=== PATIENT | female | born 1960 | race Caucasian/White ===

== ENCOUNTER 2021-01-15 15:44 | Outpatient (REF) | payer OTHER, SELFPAY ==
[2021-01-15 16:53] LABS: Alanine Aminotransferase 75 U/L (0-31); Albumin Level 4.5 g/dL (3.5-5.0); Alkaline Phosphatase 70 U/L (39-117); Anion Gap 13 (12-20); Aspartate Amino Transferase 73 U/L (5-31); Bilirubin Direct 0.2 mg/dL (0.0-0.5); Bilirubin Total 0.5 mg/dL (0.0-1.0); Blood Urea Nitrogen 13 mg/dL (9-16); Calcium 9.5 mg/dL (8.4-10.2); Carbon Dioxide 27 mmol/L (22-29); Chloride 106 mmol/L (96-108); Estimated Glomerular Filt Rate > 60; Potassium 4.4 mmol/L (3.3-5.1); Sodium 142 mmol/L (135-145); Total Protein 7.2 g/dL (6.5-8.0)
== END 2021-01-15 15:45 | disposition home or self-care (01) ==
LOC: HO.LAB 15:44
PROVIDERS: PCP Family Medicine; Visit Provider Family Medicine
DX: I10 Essential (primary) hypertension (principal); K76.0 Fatty (change of) liver, not elsewhere classified; E21.3 Hyperparathyroidism, unspecified
CPT/HCPCS: 36415; 80051; 80076; 82310; 82565; 84520

== ENCOUNTER 2021-02-27 15:16 | Outpatient (REF) | payer OTHER, SELFPAY ==
--- NOTE | ~2021-02-27 | MM_ITS ---
EXAMINATION: MM SCREENING DIGITAL BREAST TOMOSYNTHESIS, BILATERAL CLINICAL INFORMATION: Screening. Asymptomatic. The lifetime risk of breast cancer based on the Tyrer-Cuzick Model is 14.6%. COMPARISON: Mammography: September 25, 2015 and August 01, 2012 TECHNIQUE: Digital breast tomosynthesis is performed in both the craniocaudal and mediolateral oblique views along with computer-aided detection (CAD). Synthesized 2D images are generated from the tomosynthesis. FINDINGS: The breasts are almost entirely fatty (ACR BI-RADS breast composition Category a). There are no significant masses, abnormal calcifications, or other abnormalities. MM/MM tomosynthesis screening BI IMPRESSION: There are no significant changes from prior study. ASSESSMENT: BI-RADS 1: Negative RECOMMENDATION: Routine annual mammography screening. This patient's information was entered into a reminder system with a target due date for their next mammogram.
== END 2021-02-27 15:17 | disposition home or self-care (01) ==
LOC: HO.MAMMO 15:16
PROVIDERS: Visit Provider Family Medicine
DX: Z12.31 Encounter for screening mammogram for malignant neoplasm of breast (principal)
CPT/HCPCS: 77063; 77067

== ENCOUNTER 2022-03-16 16:16 | Outpatient (REF) | payer OTHER, SELFPAY ==
[2022-03-16 17:40] LABS: Alanine Aminotransferase 50 U/L (0-31); Anion Gap 14 (12-20); Aspartate Amino Transferase 43 U/L (5-31); Blood Urea Nitrogen 14 mg/dL (9-16); Carbon Dioxide 26 mmol/L (22-29); Chloride 103 mmol/L (96-108); Estimated Glomerular Filt Rate > 60; Potassium 4.2 mmol/L (3.3-5.1); Sodium 139 mmol/L (135-145)
[2022-03-20 17:11] LABS: FIB-ALT 44 U/L (6-29); FIB-Alpha-2-Macroglobulin 175 mg/dL (106-279); FIB-Apolipoprotein A1 182 mg/dL (101-198); FIB-GGT 95 U/L (3-65); FIB-Haptoglobin 109 mg/dL (43-212); FIB-Total Bilirubin 0.7 mg/dL (0.2-1.2); Liver Fibrosis Score 0.27; Liver Fibrosis Stage F1; Nec Inflam Act Grade A0-A1; Nec Inflam Act Score 0.24
== END 2022-03-16 16:17 | disposition home or self-care (01) ==
LOC: HO.LAB 16:16
PROVIDERS: PCP Family Medicine; Visit Provider Family Medicine
DX: I10 Essential (primary) hypertension (principal); K75.81 Nonalcoholic steatohepatitis (NASH)
CPT/HCPCS: 36415; 80051; 81596; 82565; 84450; 84460; 84520; 86970

== ENCOUNTER 2022-03-31 14:18 | Outpatient (REF) | payer OTHER, SELFPAY | END 2022-03-31 14:19 | disposition home or self-care (01) | LOC: HO.US 14:18 | PROVIDERS: Visit Provider Family Medicine | DX: Z13.89 Encounter for screening for other disorder (principal) ==

== ENCOUNTER 2022-11-19 08:16 | Outpatient (REF) | payer OTHER, SELFPAY ==
--- NOTE | ~2022-11-19 | XR_ITS ---
EXAMINATION: XR SHOULDER, RIGHT CLINICAL INFORMATION: Right shoulder pain. COMPARISON: None available. TECHNIQUE: AP, scapular Y, and axillary views of the right shoulder. FINDINGS: Severe glenohumeral joint space narrowing with bony remodeling, subchondral cystic change, and marginal osteophytes. Mild superior subluxation of the humeral head, likely indicating underlying rotator cuff tendon tears. No acute fracture or dislocation. No abnormal soft tissue calcification. XR/XR shoulder RT min 2V IMPRESSION: Severe glenohumeral osteoarthritis with bony remodeling and mild superior subluxation of the humeral head, likely indicating underlying rotator cuff tendon tears.
== END 2022-11-19 08:17 | disposition home or self-care (01) ==
LOC: HO.HOSX 08:16
PROVIDERS: Visit Provider Physician Assistant
DX: M19.011 Primary osteoarthritis, right shoulder (principal)
CPT/HCPCS: 20610; 73030; J1040

== ENCOUNTER 2022-11-25 12:44 | Outpatient (REF) | payer OTHER, SELFPAY ==
--- NOTE | ~2022-11-25 | XR_ITS ---
EXAMINATION: XR HIP, LEFT CLINICAL INFORMATION: Left hip pain. COMPARISON: Selected images of the abdomen and pelvic CT scan of 03/16/2019. TECHNIQUE: Two views of the left hip. 1 view of the pelvis. FINDINGS: Postsurgical changes of ventral wall hernia repair are noted. Anastomotic steven are noted projecting over the midline in the lower pelvis. Femoral heads are well seated in the expected acetabula. Moderate to severe narrowing of the left hip joint space with subarticular sclerosis and subarticular cystic changes, greater in the acetabulum. Mild narrowing of the right hip joint space with mild subarticular sclerosis. Symphysis pubis is intact. Limited evaluation of the sacroiliac joints is unremarkable. Lower lumbar spondylosis. No evidence of acute fracture or dislocation. XR/XR hip LT w PEL1V IMPRESSION: No acute osseous abnormality in the pelvis and left hip. Moderate osteoarthritic changes in the left hip. Mild osteoarthritic changes in the right hip.
== END 2022-11-25 12:45 | disposition home or self-care (01) ==
LOC: HO.HOSX 12:44
PROVIDERS: Visit Provider Physician Assistant
DX: M16.12 Unilateral primary osteoarthritis, left hip (principal)
CPT/HCPCS: 73502

== ENCOUNTER 2023-02-08 15:36 | Outpatient (REF) | payer OTHER, SELFPAY ==
--- NOTE | ~2023-02-08 | MM_ITS ---
EXAMINATION: MM SCREENING DIGITAL BREAST TOMOSYNTHESIS, BILATERAL CLINICAL INFORMATION: Screening. Asymptomatic. Prior history reduction mammoplasty. The lifetime risk of breast cancer based on the Tyrer-Cuzick Model is 8%. COMPARISON: Mammography: 02/27/2021, 09/25/2015 TECHNIQUE: Digital breast tomosynthesis is performed in both the craniocaudal and mediolateral oblique views along with computer-aided detection (CAD). Synthesized 2D images are generated from the tomosynthesis. FINDINGS: The breasts are almost entirely fatty (ACR BI-RADS breast composition Category a). Background stromal markings are unremarkable. There are no significant masses, abnormal calcifications, or other abnormalities. There is minor scarring consistent with the reduction mammoplasty. There is fine punctate deodorant artifact overlying this high left axilla on MLO tomography. The axilla are otherwise unremarkable. Skin contours are smooth. No significant changes. MM/MM tomosynthesis screening BI IMPRESSION: No mammographic evidence of malignancy. ASSESSMENT: BI-RADS 2: Benign RECOMMENDATION: Routine annual mammography screening. This patient's information was entered into a reminder system with a target due date for their next mammogram.
== END 2023-02-08 15:37 | disposition home or self-care (01) ==
LOC: HO.MAMMO 15:36
PROVIDERS: Visit Provider Family Medicine
DX: Z12.31 Encounter for screening mammogram for malignant neoplasm of breast (principal)
CPT/HCPCS: 77063; 77067

== ENCOUNTER 2023-04-02 16:45 | Outpatient (REF) | payer OTHER, SELFPAY ==
[2023-04-02 18:18] LABS: Alanine Aminotransferase 60 U/L (0-31); Anion Gap 16 (12-20); Aspartate Amino Transferase 54 U/L (5-31); Blood Urea Nitrogen 17 mg/dL (9-16); Carbon Dioxide 22 mmol/L (22-29); Chloride 106 mmol/L (96-108); Estimated Glomerular Filt Rate > 60; Potassium 4.1 mmol/L (3.3-5.1); Sodium 140 mmol/L (135-145)
== END 2023-04-02 16:46 | disposition home or self-care (01) ==
LOC: HO.LAB 16:45
PROVIDERS: PCP Family Medicine; Visit Provider Family Medicine
DX: I10 Essential (primary) hypertension (principal); K75.81 Nonalcoholic steatohepatitis (NASH)
CPT/HCPCS: 36415; 80051; 82565; 84450; 84460; 84520

== ENCOUNTER 2023-12-12 19:48 | Inpatient (IN) | payer OTHER, SELFPAY ==
--- NOTE | ~2023-12-12 | XR_ITS ---
EXAMINATION: XR CHEST CLINICAL INFORMATION: Fever. COMPARISON: 11/02/2019. TECHNIQUE: 2 views of the chest were obtained. FINDINGS: The cardiomediastinal silhouette is stable. There is no focal lung consolidation or significant pleural effusion. The bony structures and soft tissues are unremarkable. XR/XR chest 2V IMPRESSION: No acute cardiopulmonary process.
--- NOTE | ~2023-12-12 | CT_ITS ---
EXAMINATION: CT ABDOMEN AND PELVIS WITH CONTRAST CLINICAL INFORMATION: Fever. Vomiting. Pain. COMPARISON: None available. TECHNIQUE: Multidetector volumetric images were obtained from the superior aspect of the liver through the pubic symphysis following administration 85 mL of Omnipaque 350 intravenous contrast. Sagittal and coronal reformatted images were obtained on the technologist's workstation. Oral contrast: No This CT examination was performed using dose optimization techniques as appropriate, variously including the following: *Automated exposure control *Adjustment of mA and/or kV according to patient size (this includes techniques or standardized protocols for targeted exams where dose is matched to indication/reason for exam; i.e. extremities or head) *Use of iterative reconstruction technique DLP: 608 mGy-cm FINDINGS: LUNG BASES: There is scarring at both lung bases. LIVER, GALLBLADDER, AND BILIARY TREE: The liver is normal in size, shape, and attenuation. No focal hepatic lesion or biliary ductal dilatation is present. There has been a prior cholecystectomy. PANCREAS: Unremarkable. SPLEEN: The spleen measures up to 16 cm. ADRENAL GLANDS: Unremarkable. KIDNEYS AND URETERS: The kidneys are normal in size and position. Both kidneys enhance heterogeneously particularly on the right. There are a few subcentimeter renal hypodensities too small to characterize but likely small cysts. There is no hydronephrosis. BLADDER: Mild urinary bladder wall thickening. GASTROINTESTINAL TRACT: There are diverticula of the transverse descending and sigmoid colon without diverticulitis. The appendix is visualized and is within normal limits. ABDOMINAL WALL: Hernia repair mesh is noted in place. LYMPH NODES: Normal. VASCULAR: Unremarkable. PELVIC VISCERA: Unremarkable. OSSEOUS STRUCTURES: There is diffuse thoracolumbar disc degenerative change. CT/CT abdomen pelvis w IV con IMPRESSION: 1. There is heterogeneous enhancement of the kidneys particularly on the right which could reflect pyelonephritis. 2. There is mild urinary bladder wall thickening which could reflect cystitis. 3. Diverticulosis without diverticulitis. 4. Splenomegaly. Fleischner guidelines were followed.
--- NOTE | 2023-12-12 19:51 | ECG_ITS ---
Test Reason : afibb Blood Pressure : / mmHG Vent. Rate : 126 BPM Atrial Rate : 000 BPM P-R Int : 000 ms QRS Dur : 090 ms QT Int : 302 ms P-R-T Axes : 000 011 028 degrees QTc Int : 437 ms Atrial fibrillation with rapid ventricular response Abnormal ECG When compared with ECG of 02-NOV-2019 21:22, Atrial fibrillation has replaced Sinus rhythm Referred By: Chen Gorman Electronically Signed By:ALICIA ARBOLEDA
[2023-12-12 20:00] VITALS: BP 129/84; PULSE 120; RESP 20; TEMP 37.2; O2SAT 98; BMI 32.9
[2023-12-12 20:16] LABS: MANUAL DIFF FLAG NO
[2023-12-12 20:18] VITALS: TEMP 38.1
[2023-12-12 20:18] LABS: Basophils Absolute Auto 0.1 X10*3/uL (0.0-0.2); Basophils Percent Auto 0.5 % (0-2); Eosinophils Absolute Auto 0.1 X10*3/uL (0.0-0.4); Hematocrit 39.1 % (37.0-47.0); Hemoglobin 13.7 g/dl (12.0-16.0); Imm Gran Abs Auto 0.09 X10*3/uL (0.00-0.03); Lymphocytes Absolute Auto 0.3 X10*3/uL (1.2-4.9); Lymphocytes Percent Auto 3.7 % (20-40); Mean Corpuscular Hemoglobin 33.9 pg (27.0-33.0); Mean Corpuscular Volume 96.8 fL (80.0-98.0); Mean Platelet Volume 10.9 fL (9.4-12.3); Monocytes Absolute Auto 0.7 X10*3/uL (0.1-1.2); Monocytes Percent Auto 7.3 % (2-11); Neutrophils Absolute Auto 8.1 x10*3/uL (2.0-8.3); Neutrophils Percent Auto 86.5 % (45-73); Platelet Count 118 X10*3/uL (160-400); Red Blood Count 4.04 X10*6/uL (4.20-5.50); Red Cell Distribution Width 12.9 % (11.0-16.0); White Blood Count 9.3 X10*3/uL (4.8-10.8)
[2023-12-12 20:34] LABS: INTERNATIONAL NORM RATIO 1.9 (0.9-1.1); Prothrombin Time 23.7 SEC (11.1-13.3)
[2023-12-12 20:50] LABS: Troponin-I High Sensitivity 6.9 ng/L (<3.5-17.0)
[2023-12-12 20:55] LABS: B Type Natriuretic Peptide 521 pg/mL (<100)
[2023-12-12 20:56] LABS: Influenza A PCR NEGATIVE (Negative); Influenza B PCR NEGATIVE (Negative); Resp Syncy Virus RNA Qual PCR NEGATIVE (Negative); SARS COV2 PCR INHOUSE NEGATIVE (Negative)
[2023-12-12 21:00] LABS: Alanine Aminotransferase 38 U/L (0-31); Albumin Level 3.8 g/dL (3.5-5.0); Alkaline Phosphatase 72 U/L (39-117); Anion Gap 19 (12-20); Aspartate Amino Transferase 37 U/L (5-31); Bilirubin Total 1.9 mg/dL (0.0-1.0); Blood Urea Nitrogen 18 mg/dL (9-16); Carbon Dioxide 13 mmol/L (22-29); Chloride 103 mmol/L (96-108); Creatinine Clr Calc Pharmacy 65.3; Estimated Glomerular Filt Rate > 60; Glucose Random 180 mg/dL (60-115); Lipase 19 U/L (8-78); Magnesium 1.8 mg/dL (1.6-2.6); Potassium 3.7 mmol/L (3.3-5.1); Sodium 131 mmol/L (135-145); Total Protein 7.6 g/dL (6.5-8.0)
[2023-12-12 22:35] VITALS: BP 109/66; PULSE 108; RESP 24; TEMP 37.8; O2SAT 95
[2023-12-13] VITALS (8 sets, daily range): BP systolic 96–125; BP diastolic 61–84; PULSE 93–124; RESP 14–28; TEMP 36.4–38.6; O2SAT 95–100
--- NOTE | 2023-12-13 00:03 | ED.GENADULT ---
HPI - General Adult General Chief complaint: General Medical Stated complaint: afib,dehydrated sweating Time Seen by Provider: 12/13/23 00:02 History of Present Illness HPI narrative: The patient is a 63-year-old woman who has a history of atrial fibrillation. In 2012 she had an ablation procedure that was successful and until the last day or 2 she has not had any recurrence of atrial fibrillation. She has stayed on anticoagulation with apixaban. The patient says that 3 days ago on she had some upper abdominal discomfort and nausea and vomiting. She had vomiting on Wednesday, Wednesday, and today on Wednesday. She also has had 2 episodes of diarrhea. She has been sleeping poorly. She felt feverish at home but did not measure a temperature. Today she felt profoundly weak and thought that her atrial fibrillation might have recurred although she did not feel the palpitations she remembers having with atrial fibrillation. At the time that I am seeing the patient she says she does not have any abdominal pain. No significant coughing. No urinary discomfort. She simply feels worn out.. Related Data Home Medications ?Medication ?Instructions ?Recorded ?Confirmed apixaban 5 mg tablet (Eliquis) 5 mg PO BID 11/19/22 11/25/22 diltiazem HCl 240 mg 240 mg PO BEDTIME 11/19/22 11/25/22 capsule,extended release 24 hr omeprazole 20 mg capsule,delayed 20 mg PO DAILY 11/19/22 11/25/22 release primidone 250 mg tablet 250 mg PO BEDTIME 11/19/22 11/25/22 propranolol 20 mg tablet mg PO 11/19/22 11/25/22 sertraline 100 mg tablet 100 mg PO DAILY 11/19/22 11/25/22 Previous Rx's ?Medication ?Instructions ?Recorded celecoxib 200 mg capsule 200 mg PO BID #60 caps 10/07/23 Allergies Allergy/AdvReac Type Severity Reaction Status Date / Time latex [LATEX] Allergy Intermediate RASH Verified 12/12/23 20:02 meperidine AdvReac Intermediate VOMITING Verified 12/12/23 20:02 STOMACH UPSET Review of Systems Review of Systems: Yes all other systems are reviewed and are negative PMFSH Past Medical History Medical History Afib Tremor Social History Social History (Reviewed 11/25/22 @ 13:45 by Analia Garcia Cuong Patient Tobacco Use Status: Never used Tobacco Use of substances other than those prescribed or required for medical reasons: No Advance Directives: No Advance Directives Information Provided: No Current occupational status: employed 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 She looks mildly worn out but not acutely toxic. She does not appear in pain or respiratory distress. She looks somewhat fatigued. HENMT Other: The face is symmetrical. Mucous membranes moist. Eyes Other: Pupils are round equal, conjunctivae are clear, extraocular movements intact Neck Other: No JVD Resp Effort & Inspection: normal respiratory effort Auscultation: clear to auscultation bilaterally Cardio Other: The patient has an irregular rate and rhythm. No murmur. She is mildly tachycardic. GI Other: The abdomen is soft. No real focal tenderness. Skin Other: Skin is pale and dry Neuro Other: The patient is awake, alert, and appropriate. Extrem Other: No peripheral edema Medications Administered Discontinued Medications Generic Name Dose Route Start Last Admin Trade Name Freq PRN Reason Stop Dose Admin Sodium Chloride 1,000 mls @ 999 mls/hr 12/13/23 00:30 12/13/23 01:45 Ns IV 12/13/23 01:30 Infused .Q1H1M JUAN CARLOS Infusion Sodium Chloride 1,000 mls @ 999 mls/hr 12/13/23 02:15 12/13/23 03:26 Ns IV 12/13/23 03:15 Infused .Q1H1M JUAN CARLOS Infusion Ceftriaxone Sodium 2 gm/ 50 mls @ 100 mls/hr 12/13/23 03:48 12/13/23 03:59 Sodium Chloride IV 12/13/23 04:17 100 mls/hr ONCE ONE Administration Iohexol 100 ml 12/13/23 02:17 12/13/23 02:17 Iohexol 350 Mg/Ml 100 Ml Infus..Btl IV 12/13/23 02:18 85 ml ONCE ONE Administration Medical Decision Making Medical Decision Making [facility] Narrative: The patient is a very pleasant 63-year-old female who presents to the emergency room after having not felt well for about 3 or 4 days. She describes primarily having had nausea and vomiting and a little bit of diarrhea and also some night sweats. She had felt feverish at home but did not check her temperature. She denies any urinary discomfort. She was worried that her atrial fibrillation might have returned after over 10 years of no atrial fibrillation following an ablation procedure in 2012. Clinically the patient did not look toxic and initially she was afebrile. She is in atrial fibrillation but her heart rate was not remarkably fast and the atrial fibrillation was not clearly the primary problem. Labs were done and she did not have an elevated white count but she did have a bicarb of 13 on her basic metabolic panel. A bicarb of 13 was surprising given how she looked clinically well in her vital signs were unremarkable. I added on additional inflammatory markers and she had remarkably high CRP and also quite elevated procalcitonin. She was given 2 L saline. Ultimately she was able to give us a urine sample that was highly suggestive of a UTI (on further questioning she admits to increased urinary frequency although she denies dysuria). I would also ordered a CT of the abdomen and pelvis. This shows findings consistent with cystitis and also some patchiness to the right kidney potentially indicative of right-sided pyelonephritis. The patient denies any right flank pain. The patient has been given IV ceftriaxone. She was offered hospitalization. She would really prefer not to be hospitalized. At 1st the patient was quite insistent that she be discharged after starting antibiotics but ultimately she became quite chilled and agreed that hospitalization might be reasonable. I strongly encouraged her to be hospitalized. Lab Data 12/12/23 20:10 12/13/23 02:45 Labs: Lab Results 12/12/23 12/12/23 12/13/23 Range/Units 20:10 20:25 02:45 WBC 9.3 (4.8-10.8) X10*3/uL RBC 4.04 L (4.20-5.50) X10*6/uL Hgb 13.7 (12.0-16.0) g/dl Hct 39.1 (37.0-47.0) % MCV 96.8 (80.0-98.0) fL MCH 33.9 H (27.0-33.0) pg MCHC 35.0 (31.0-35.0) g/dl RDW 12.9 (11.0-16.0) % Plt Count 118 L (160-400) X10*3/uL MPV 10.9 (9.4-12.3) fL Immature Gran % (Auto) 1.0 H (0.0-0.4) % Neut % (Auto) 86.5 H (45-73) % Lymph % (Auto) 3.7 L (20-40) % [place] % (Auto) 7.3 (2-11) % Eos % (Auto) 1.0 (0-4) % Baso % (Auto) 0.5 (0-2) % Lymph # (Auto) 0.3 L (1.2-4.9) X10*3/uL [place] # (Auto) 0.7 (0.1-1.2) X10*3/uL Eos # (Auto) 0.1 (0.0-0.4) X10*3/uL Baso # (Auto) 0.1 (0.0-0.2) X10*3/uL Abs Immat Gran (auto) 0.09 H (0.00-0.03) X10*3/uL Absolute Neuts (auto) 8.1 (2.0-8.3) x10*3/uL Absolute Nucleated RBC 0.000 (0.0-0.012) X10*3/uL Nucleated RBC % (auto) 0.0 (0.0-0.2) /100WBC PT 23.7 H (11.1-13.3) SEC INR 1.9 H (0.9-1.1) VBG pH (7.32-7.43) VBG pCO2 mmHg VBG pO2 mmHg VBG HCO3 (22-26) mmol/L VBG O2 Saturation % VBG Base Excess mmol/L Sodium 131 L 134 L (135-145) mmol/L Potassium 3.7 3.1 L (3.3-5.1) mmol/L Chloride 103 103 (96-108) mmol/L Carbon Dioxide 13 L 20 L (22-29) mmol/L Anion Gap 19 14 (12-20) BUN 18 H 21 H (9-16) mg/dL Creatinine 0.85 0.88 (0.5-1.4) mg/dL Estim Creat Clear Calc 65.3 63.1 Estimated GFR > 60 > 60 Random Glucose 180 H 118 H (60-115) mg/dL Lactic Acid 1.6 (0.5-2.0) mmol/L Calcium 9.0 8.1 L D (8.4-10.2) mg/dL Magnesium 1.8 (1.6-2.6) mg/dL Total Bilirubin 1.9 H (0.0-1.0) mg/dL Direct Bilirubin 0.6 H (0.0-0.5) mg/dL AST 37 H (5-31) U/L ALT 38 H (0-31) U/L Alkaline Phosphatase 72 (39-117) U/L Troponin I High Sens 6.9 (<3.5-17.0) ng/L C-Reactive Protein 28.71 H (< or = 0.50) mg/dL B-Natriuretic Peptide 521 H (<100) pg/mL Total Protein 7.6 (6.5-8.0) g/dL Albumin 3.8 (3.5-5.0) g/dL Lipase 19 (8-78) U/L Procalcitonin 7.08 ng/mL Urine Color Urine Appearance Urine pH (5.0-9.0) Ur Specific [place] (1.005-1.025) Urine Protein (Neg-Trace) mg/dL Urine Glucose (UA) (Negative) mg/dL Urine Ketones (Negative) mg/dL Urine Blood (Negative) Urine Nitrite (Negative) Ur Leukocyte Esterase (Negative) Urine RBC (0-2) /HPF Urine WBC (0-5) /HPF Ur Squamous Epith Cells (0-2) /HPF Urine Bacteria (None Seen) Hyaline Casts (0-2) /LPF Influenza Type A (PCR) NEGATIVE (Negative) Influenza Type B (PCR) NEGATIVE (Negative) RSV RNA Qual (PCR) NEGATIVE (Negative) SARS-CoV-2 RNA (RT-PCR) NEGATIVE (Negative) 12/13/23 12/13/23 Range/Units 02:46 03:31 WBC (4.8-10.8) X10*3/uL RBC (4.20-5.50) X10*6/uL Hgb (12.0-16.0) g/dl Hct (37.0-47.0) % MCV (80.0-98.0) fL MCH (27.0-33.0) pg MCHC (31.0-35.0) g/dl RDW (11.0-16.0) % Plt Count (160-400) X10*3/uL MPV (9.4-12.3) fL Immature Gran % (Auto) (0.0-0.4) % Neut % (Auto) (45-73) % Lymph % (Auto) (20-40) % [place] % (Auto) (2-11) % Eos % (Auto) (0-4) % Baso % (Auto) (0-2) % Lymph # (Auto) (1.2-4.9) X10*3/uL [place] # (Auto) (0.1-1.2) X10*3/uL Eos # (Auto) (0.0-0.4) X10*3/uL Baso # (Auto) (0.0-0.2) X10*3/uL Abs Immat Gran (auto) (0.00-0.03) X10*3/uL Absolute Neuts (auto) (2.0-8.3) x10*3/uL Absolute Nucleated RBC (0.0-0.012) X10*3/uL Nucleated RBC % (auto) (0.0-0.2) /100WBC PT (11.1-13.3) SEC INR (0.9-1.1) VBG pH 7.32 (7.32-7.43) VBG pCO2 41 mmHg VBG pO2 31 mmHg VBG HCO3 21 L (22-26) mmol/L VBG O2 Saturation 40.0 % VBG Base Excess -4.1 mmol/L Sodium (135-145) mmol/L Potassium (3.3-5.1) mmol/L Chloride (96-108) mmol/L Carbon Dioxide (22-29) mmol/L Anion Gap (12-20) BUN (9-16) mg/dL Creatinine (0.5-1.4) mg/dL Estim Creat Clear Calc Estimated GFR Random Glucose (60-115) mg/dL Lactic Acid (0.5-2.0) mmol/L Calcium (8.4-10.2) mg/dL Magnesium (1.6-2.6) mg/dL Total Bilirubin (0.0-1.0) mg/dL Direct Bilirubin (0.0-0.5) mg/dL AST (5-31) U/L ALT (0-31) U/L Alkaline Phosphatase (39-117) U/L Troponin I High Sens (<3.5-17.0) ng/L C-Reactive Protein (< or = 0.50) mg/dL B-Natriuretic Peptide (<100) pg/mL Total Protein (6.5-8.0) g/dL Albumin (3.5-5.0) g/dL Lipase (8-78) U/L Procalcitonin ng/mL Urine Color Yellow Urine Appearance Turbid Urine pH 5.5 (5.0-9.0) Ur Specific [place] >= 1.030 H (1.005-1.025) Urine Protein 100 (2+) H (Neg-Trace) mg/dL Urine Glucose (UA) Negative (Negative) mg/dL Urine Ketones Negative (Negative) mg/dL Urine Blood Large (3+) H (Negative) Urine Nitrite Positive H (Negative) Ur Leukocyte Esterase Moderate (2+) H (Negative) Urine RBC >20 H (0-2) /HPF Urine WBC >50 H (0-5) /HPF Ur Squamous Epith Cells 0-2 (0-2) /HPF Urine Bacteria 4+ (None Seen) Hyaline Casts 0-2 (0-2) /LPF Influenza Type A (PCR) (Negative) Influenza Type B (PCR) (Negative) RSV RNA Qual (PCR) (Negative) SARS-CoV-2 RNA (RT-PCR) (Negative) Independent Interpretation I performed an independent interpretation of an: EKG Interpretation: EKG at 19:53 shows atrial fibrillation with rapid ventricular response at 126 beats per minute Critical Care Time Critical Care Time Critical Care Time: Yes Total Critical Care Time: 45 Attestation: The patient was critically ill with a high probability of imminent or life-threatening deterioration. ?I spent greater than 30 minutes of discontinuous time evaluating the patient, delivering critical care at the bedside, discussing evaluating data with consultants. ?Critical care time does not include time spent performing separately billable procedures or teaching. ?Time spent performing critical care with 45 minutes. Discharge Plan Discharge Patient Disposition: Admitted As Inpatient Prescriptions: No Action celecoxib 200 mg capsule 200 mg PO BID Qty: 60 3RF sertraline 100 mg tablet 100 mg PO DAILY propranolol 20 mg tablet PO omeprazole 20 mg capsule,delayed release(DR/EC) 20 mg PO DAILY diltiazem HCl 240 mg capsule,extended release 24hr 240 mg PO BEDTIME primidone 250 mg tablet 250 mg PO BEDTIME Eliquis 5 mg tablet 5 mg PO BID Print Language: Kinyarwanda
[2023-12-13 00:44] LABS: Bilirubin Direct 0.6 mg/dL (0.0-0.5); C Reactive Protein 28.71 mg/dL (< or = 0.50)
[2023-12-13] MEDS: 0.9 % Sodium Chloride 1,000 ML 999 ML IV ×2 (00:44→02:25)
[2023-12-13] MEDS: iohexoL 350 MG/ML 100 ML INFUS..BTL IV (02:17)
[2023-12-13 02:52] LABS: Procalcitonin 7.08 ng/mL
[2023-12-13 02:54] LABS: VBG Base Excess -4.1 mmol/L; VBG HCO3 21 mmol/L (22-26); VBG pCO2 41 mmHg; VBG pH 7.32 (7.32-7.43); VBG pO2 31 mmHg
[2023-12-13 02:57] LABS: Venous Blood Gas Refer to POC result
[2023-12-13 03:00] LABS: Lactic Acid 1.6 mmol/L (0.5-2.0)
[2023-12-13 03:05] LABS: Anion Gap 14 (12-20); Blood Urea Nitrogen 21 mg/dL (9-16); Calcium 8.1 mg/dL (8.4-10.2); Carbon Dioxide 20 mmol/L (22-29); Chloride 103 mmol/L (96-108); Creatinine Clr Calc Pharmacy 63.1; Estimated Glomerular Filt Rate > 60; Glucose Random 118 mg/dL (60-115); Potassium 3.1 mmol/L (3.3-5.1); Sodium 134 mmol/L (135-145)
[2023-12-13 03:38] LABS: Appearance Urine Turbid; Color Urine Yellow; Glucose Urine UA Negative (Negative); Leukocyte Esterase Urine Moderate (2+) (Negative); Nitrite Urine Positive (Negative); PH 5.5 (5.0-9.0); Specific Gravity - Urine >= 1.030 (1.005-1.025); UMIC TRIGGER UACC YES; Urine Blood Large (3+) (Negative); Urine Ketones Negative (Negative); Urine Protein 100 (2+) mg/dL (Neg-Trace)
[2023-12-13 03:41] LABS: Bacteria Urine 4+ (None Seen); Hyaline Casts Urine 0-2 /LPF (0-2); RBC Urine >20 /HPF (0-2); Squamous Epithelial Cell Urine 0-2 /HPF (0-2); UACC Culture Trigger YES; WBC Urine >50 /HPF (0-5)
[2023-12-13] MEDS: cefTRIAXone sodium 2 GM in 0.9 % Sodium Chloride 50 ML IV (03:59)
--- NOTE | 2023-12-13 04:40 | P.HPHOSP_ITS ---
History of Present Illness Date of Service: 12/13/23 Chief Complaint: Abdominal Pain This is a 63-year-old female with pertinent history of atrial fibrillation on Eliquis, gastroesophageal reflux disease, essential tremor, mood disorder who presents to the emergency department for evaluation of abdominal discomfort, nausea and vomiting. Patient states her symptoms started 2 days prior to presentation. She has been having nausea and multiple episodes of nonbloody emesis. She also felt her heart race and states that she has not been in RVR since her ablation which was 11 years ago. Admits fevers and chills. Also endorses increased urinary frequency. Has never had a UTI before. No chest discomfort, palpitations, shortness of breath, changes in bowel habits In the emergency department, urine was concerning for UTI and imaging with pyelonephritis and cystitis. Review of Systems 2 Constitutional: Constitutional: Reports chills and Reports fever(s) Cardiovascular: Cardiovascular: Reports no additional cardiovascular complaints Respiratory: Respiratory: Reports no additional respiratory complaints Gastrointestinal: Gastrointestinal: Reports no additional gastrointestinal complaints Genitourinary: Genitourinary: Reports urinary urgency [facility] Medical History GERD (gastroesophageal reflux disease) Mood disorder Tremor Afib Pertinent family history: No family history of early CAD Social History Patient Tobacco Use Status: Never used Tobacco Use of substances other than those prescribed or required for medical reasons: No Advance Directives: No Advance Directives Information Provided: No Current occupational status: employed 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 Meds Allergies Allergy/AdvReac Type Severity Reaction Status Date / Time latex [LATEX] Allergy Intermediate RASH Verified 12/12/23 20:02 meperidine AdvReac Intermediate VOMITING Verified 12/12/23 20:02 STOMACH UPSET Home Medications ?Medication ?Instructions ?Recorded ?Confirmed ?Last Taken ?Type apixaban 5 mg tablet (Eliquis) 5 mg PO BID 11/19/22 11/25/22 Unknown History diltiazem HCl 240 mg 240 mg PO BEDTIME 11/19/22 11/25/22 Unknown History capsule,extended release 24 hr omeprazole 20 mg capsule,delayed 20 mg PO DAILY 11/19/22 11/25/22 Unknown History release primidone 250 mg tablet 250 mg PO BEDTIME 11/19/22 11/25/22 Unknown History propranolol 20 mg tablet mg PO 11/19/22 11/25/22 Unknown History sertraline 100 mg tablet 100 mg PO DAILY 11/19/22 11/25/22 Unknown History Physical Exam 2 Vital Signs and Narrative: Vital Signs: Last Vital Signs Temp 97.5 F 12/13/23 02:53 Pulse 99 12/13/23 02:53 Resp 18 12/13/23 02:53 BP 122/84 12/13/23 02:53 Pulse Ox 95 12/13/23 02:53 O2 Del Method Room Air 12/13/23 02:53 BMI result Body Mass Index 32.9 Middle-aged female lying in bed in no distress Neck supple, no JVD Regular rate and rhythm, S1-S2 heard Regular breath sounds bilaterally, no wheezing or crackles appreciated Abdomen soft nontender, no guarding, no rigidity Patient is awake, alert and oriented to self, place, time and person ; no focal motor deficit Psych: Normal mood No pedal edema Results Labs 12/12/23 20:10 12/13/23 02:45 Labs: Laboratory Results - last 24 hr 12/12/23 12/12/23 12/13/23 20:10 20:25 02:45 MCV 96.8 MCH 33.9 H MCHC 35.0 RDW 12.9 Plt Count 118 L MPV 10.9 Immature Gran % (Auto) 1.0 H Neut % (Auto) 86.5 H Lymph % (Auto) 3.7 L [place] % (Auto) 7.3 Eos % (Auto) 1.0 Baso % (Auto) 0.5 Lymph # (Auto) 0.3 L [place] # (Auto) 0.7 Eos # (Auto) 0.1 Baso # (Auto) 0.1 Abs Immat Gran (auto) 0.09 H Absolute Neuts (auto) 8.1 Absolute Nucleated RBC 0.000 Nucleated RBC % (auto) 0.0 PT 23.7 H INR 1.9 H VBG pH VBG pCO2 VBG pO2 VBG HCO3 VBG O2 Saturation VBG Base Excess Anion Gap 19 14 Estim Creat Clear Calc 65.3 63.1 Estimated GFR > 60 > 60 Random Glucose 180 H 118 H Lactic Acid 1.6 Calcium 9.0 8.1 L D Magnesium 1.8 Total Bilirubin 1.9 H Direct Bilirubin 0.6 H AST 37 H ALT 38 H Alkaline Phosphatase 72 Troponin I High Sens 6.9 C-Reactive Protein 28.71 H B-Natriuretic Peptide 521 H Total Protein 7.6 Albumin 3.8 Lipase 19 Procalcitonin 7.08 Urine Color Urine Appearance Urine pH Ur Specific [place] Urine Protein Urine Glucose (UA) Urine Ketones Urine Blood Urine Nitrite Ur Leukocyte Esterase Urine RBC Urine WBC Ur Squamous Epith Cells Urine Bacteria Hyaline Casts Influenza Type A (PCR) NEGATIVE Influenza Type B (PCR) NEGATIVE RSV RNA Qual (PCR) NEGATIVE SARS-CoV-2 RNA (RT-PCR) NEGATIVE 12/13/23 12/13/23 02:46 03:31 MCV MCH MCHC RDW Plt Count MPV Immature Gran % (Auto) Neut % (Auto) Lymph % (Auto) [place] % (Auto) Eos % (Auto) Baso % (Auto) Lymph # (Auto) [place] # (Auto) Eos # (Auto) Baso # (Auto) Abs Immat Gran (auto) Absolute Neuts (auto) Absolute Nucleated RBC Nucleated RBC % (auto) PT INR VBG pH 7.32 VBG pCO2 41 VBG pO2 31 VBG HCO3 21 L VBG O2 Saturation 40.0 VBG Base Excess -4.1 Anion Gap Estim Creat Clear Calc Estimated GFR Random Glucose Lactic Acid Calcium Magnesium Total Bilirubin Direct Bilirubin AST ALT Alkaline Phosphatase Troponin I High Sens C-Reactive Protein B-Natriuretic Peptide Total Protein Albumin Lipase Procalcitonin Urine Color Yellow Urine Appearance Turbid Urine pH 5.5 Ur Specific [place] >= 1.030 H Urine Protein 100 (2+) H Urine Glucose (UA) Negative Urine Ketones Negative Urine Blood Large (3+) H Urine Nitrite Positive H Ur Leukocyte Esterase Moderate (2+) H Urine RBC >20 H Urine WBC >50 H Ur Squamous Epith Cells 0-2 Urine Bacteria 4+ Hyaline Casts 0-2 Influenza Type A (PCR) Influenza Type B (PCR) RSV RNA Qual (PCR) SARS-CoV-2 RNA (RT-PCR) Imaging Radiologist's Impressions: Impressions Chest X-Ray 12/13/23 02:15 IMPRESSION: No acute cardiopulmonary process. Abdomen/Pelvis CT 12/13/23 02:33 IMPRESSION: 1. There is heterogeneous enhancement of the kidneys particularly on the right which could reflect pyelonephritis. 2. There is mild urinary bladder wall thickening which could reflect cystitis. 3. Diverticulosis without diverticulitis. 4. Splenomegaly. Fleischner guidelines were followed. Assessment and Plan (1) UTI (urinary tract infection): Status: Acute (2) Pyelonephritis: Status: Acute (3) Atrial fibrillation: Status: Acute Plan This is a 63-year-old female with pertinent history of atrial fibrillation on Eliquis, gastroesophageal reflux disease, essential tremor, mood disorder who presents to the emergency department for evaluation of abdominal discomfort, nausea and vomiting. #. Sepsis due to acute UTI with pyelonephritis: Resuscitated with IV crystalloids. Lactic acid and blood culture obtained. Initiating empiric IV antibiotics. Follow urine culture #. AFib with RVR in the setting of above: Administering IV diltiazem. Continue p.o. diltiazem. On Eliquis. Obtain TSH #. Thrombocytopenia: Seems chronic, a little worse due to infection. Will monitor #. Hypokalemia due to GI losses. Repleted #. Elevated BNP: No signs or symptoms of CHF. #. Essential tremor: On primidone and propranolol #. Mood disorder: On sertraline #. Gastroesophageal reflux disease: On PPI Med rec pending DVT prophylaxis: Eliquis Full code Admit as inpatient and will require two night minimum hospital stay for IV antibiotics (as above), which is not possible in a lesser acute setting. Quality Stroke Does the patient have a stroke diagnosis?: No VTE Prior VTE?: No VTE Risk Level:: Medical - moderate - high VTE Device Contraindication: Treatment Not Indicated VTE Drug Contraindication: N/A - Med Ordered
[2023-12-13 06:01] LABS: PLT CLUMP 1
[2023-12-13 06:03] LABS: Hematocrit 37.5 % (37.0-47.0); Hemoglobin 12.6 g/dl (12.0-16.0); Mean Corpuscular HGB Conc 33.6 g/dl (31.0-35.0); Mean Corpuscular Hemoglobin 33.2 pg (27.0-33.0); Mean Corpuscular Volume 98.7 fL (80.0-98.0); Red Cell Distribution Width 12.9 % (11.0-16.0)
[2023-12-13 06:04] LABS: Platelet Count 87 X10*3/uL (160-400); White Blood Count 5.1 X10*3/uL (4.8-10.8)
[2023-12-13 06:21] LABS: Band Neutrophils Percent 12 % (3-5); Lymphocytes Absolute Manual 0.2 X10*3/uL (1.2-4.9); Lymphocytes Percent Manual 3 % (20-40); Monocytes Absolute Manual 0.2 X10*3/uL (0.1-1.2); Monocytes Percent Manual 3 % (2-11); Neutrophils Absolute Manual 4.8 X10*3/uL (2.0-8.3); Neutrophils Percent Manual 82 % (45-73)
[2023-12-13 06:22] LABS: Platelet Estimate DECREASED (NORMAL); Platelet Morphology Comment NORMAL; RBC Morphology NORMAL; Toxic Granulation PRESENT; Toxic Vacuolation PRESENT
[2023-12-13 06:26] LABS: Anion Gap 16 (12-20); Blood Urea Nitrogen 19 mg/dL (9-16); Carbon Dioxide 17 mmol/L (22-29); Chloride 105 mmol/L (96-108); Creatinine Clr Calc Pharmacy 63.1; Estimated Glomerular Filt Rate > 60; Glucose Random 195 mg/dL (60-115); Potassium 3.9 mmol/L (3.3-5.1); Sodium 134 mmol/L (135-145)
[2023-12-13] MEDS: Potassium Chloride Packet 20 MEQ PACKET 40 MEQ PO (06:44)
[2023-12-13] MEDS: dilTIAZem HCL 50 MG/10 ML VIAL 15 MG IVPUSH (06:45)
[2023-12-13 07:07] LABS: Thyroid Stimulating Hormone 1.75 uIU/mL (0.32-4.0)
[2023-12-13 07:35] LABS: Estimated Average Glucose 108 mg/dL; Hemoglobin A1c % 5.4 % (<6.0)
[2023-12-13] MEDS: 0.9 % Sodium Chloride Flush 3 ML SYRINGE IVFLUSH ×2 (09:50→15:41)
--- NOTE | 2023-12-13 10:16 | MHC.CM.PN ---
CM MET WITH PT/SPOUSE AT BEDSIDE IN ED. PT LIVES WITH SPOUSE AND IS INDEPENDENT AT BASELINE. ONLY USES A CANE WHEN AMBULATING ON UNEVEN SURFACES. PT DECLINES TO DO A HCP, EDUCATION PROVIDED AND ENCOURAGED TO LET CM KNOW IF DECIDES TO COMPLETE ONE. PCP DR. CHANEL DP: HOME, NO SERVICES ANTICIPATED. SPOUSE WILL TRANSPORT. CM WILL CONTINUE TO FOLLOW FOR ANY CHANGE TO DC PLAN/NEEDS
[2023-12-13] MEDS: Apixaban 5 MG TABLET PO ×2 (13:34→20:54)
--- NOTE | 2023-12-13 14:36 | PHA.MEDREC ---
Pharmacy Consult ? Medication Reconciliation Pharmacy has completed the medication reconciliation. PT WAS ABLE TO CONFIRM MEDICATIONS WHEN I REVIEWED CLAIM HISTORY WITH HER.
--- NOTE | 2023-12-13 14:39 | PC.NURSE ---
Assumed care of this patient at 1100, patient resting quietly on stretcher, no issues noted, ind st/pivot to bedside commode, eating lunch at this time.
[2023-12-13] MEDS: dilTIAZem HCL 60 MG TABLET PO (15:42)
[2023-12-13] MEDS: Sertraline HCL 100 MG TABLET PO (15:43)
[2023-12-13] MEDS: Propranolol HCL 20 MG TABLET 60 MG PO ×2 (15:43→20:54)
--- NOTE | 2023-12-13 15:45 | PC.NURSE ---
Spoke to patient about having family bring in non-formulary primidone Rx from home, patient states she will have her bring it in when he visits her this pm.
[2023-12-13] MEDS: oxyBUTYnin chloride ER 5 MG TAB.ER.24 PO (20:54)
[2023-12-13] MEDS: dilTIAZem HCL CD 240 MG CAP.ER.DEG PO (20:55)
[2023-12-13] MEDS: Celecoxib 200 MG CAPSULE PO (20:55)
--- NOTE | 2023-12-13 21:02 | PC.NURSE ---
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
[2023-12-14] VITALS (8 sets, daily range): BP systolic 111–128; BP diastolic 71–86; PULSE 91–113; RESP 17–22; TEMP 36.3–37.3; O2SAT 95–98
[2023-12-14 06:27] LABS: MANUAL DIFF FLAG NO
[2023-12-14] MEDS: cefTRIAXone sodium 2 GM in 0.9 % Sodium Chloride 50 ML IV (06:28)
[2023-12-14 06:33] LABS: Basophils Percent Auto 0.4 % (0-2); Eosinophils Percent Auto 0.2 % (0-4); Hemoglobin 11.4 g/dl (12.0-16.0); Imm Gran Abs Auto 0.03 X10*3/uL (0.00-0.03); Imm Gran Pct Auto 0.5 % (0.0-0.4); Lymphocytes Absolute Auto 0.6 X10*3/uL (1.2-4.9); Lymphocytes Percent Auto 9.8 % (20-40); Mean Corpuscular HGB Conc 33.5 g/dl (31.0-35.0); Mean Corpuscular Hemoglobin 33.4 pg (27.0-33.0); Mean Corpuscular Volume 99.7 fL (80.0-98.0); Mean Platelet Volume 12.1 fL (9.4-12.3); Monocytes Absolute Auto 0.6 X10*3/uL (0.1-1.2); Monocytes Percent Auto 10.9 % (2-11); Neutrophils Absolute Auto 4.5 x10*3/uL (2.0-8.3); Neutrophils Percent Auto 78.2 % (45-73); Red Blood Count 3.41 X10*6/uL (4.20-5.50); Red Cell Distribution Width 12.8 % (11.0-16.0); White Blood Count 5.7 X10*3/uL (4.8-10.8)
[2023-12-14 06:50] LABS: Anion Gap 12 (12-20); Blood Urea Nitrogen 12 mg/dL (9-16); Calcium 8.7 mg/dL (8.4-10.2); Carbon Dioxide 21 mmol/L (22-29); Chloride 106 mmol/L (96-108); Estimated Glomerular Filt Rate > 60; Glucose Random 98 mg/dL (60-115); Potassium 3.3 mmol/L (3.3-5.1); Sodium 136 mmol/L (135-145)
[2023-12-14 07:34] LABS: Platelet Count 96 X10*3/uL (160-400)
[2023-12-14] MEDS: 0.9 % Sodium Chloride Flush 3 ML SYRINGE IVFLUSH ×3 (08:14→21:32)
[2023-12-14] MEDS: Ascorbic Acid 500 MG TABLET PO (09:48)
[2023-12-14] MEDS: Celecoxib 200 MG CAPSULE PO ×2 (09:48→21:29)
[2023-12-14] MEDS: Apixaban 5 MG TABLET PO ×2 (09:48→21:30)
[2023-12-14] MEDS: Sertraline HCL 100 MG TABLET PO (09:48)
[2023-12-14] MEDS: Propranolol HCL 20 MG TABLET 60 MG PO ×2 (09:49→21:31)
--- NOTE | 2023-12-14 11:20 | HO.PM.IMPN ---
Subjective Subjective Date of Service: 12/14/23 Interval History: No significant nursing events overnight. No further episodes of nausea/vomiting. Improvement in abdominal discomfort Gastrointestinal Gastrointestinal: Reports abdominal pain Physical Exam Vital Signs: Vital Signs: Last Vital Signs Temp 98.2 F 12/14/23 08:00 Pulse 99 12/14/23 08:00 Resp 22 H 12/14/23 08:00 BP 124/85 12/14/23 08:00 Pulse Ox 97 12/14/23 08:00 O2 Del Method Room Air 12/14/23 08:00 BMI result Body Mass Index 32.9 Middle-aged female lying in bed in no distress Neck supple, no JVD Regular rate and rhythm, S1-S2 heard Regular breath sounds bilaterally, no wheezing or crackles appreciated Abdomen soft nontender, no guarding, no rigidity Patient is awake, alert and oriented to self, place, time and person ; no focal motor deficit Psych: Normal mood No pedal edema Objective Data Active Medications Acetaminophen (Acetaminophen 325 Mg Tablet) 650 mg PO Q6H PRN PRN Reason: Pain, Mild (Pain Scale 1-3) Apixaban (Apixaban 5 Mg Tablet) 5 mg PO BID [facility] Last Admin: 12/14/23 09:48 Dose: 5 mg Documented By: DENNIS Ascorbic Acid (Ascorbic Acid 500 Mg Tablet) 500 mg PO DAILY [facility] Last Admin: 12/14/23 09:48 Dose: 500 mg Documented By: DENNIS Celecoxib (Celecoxib 200 Mg Capsule) 200 mg PO BID [facility] Last Admin: 12/14/23 09:48 Dose: 200 mg Documented By: DENNIS Diltiazem HCl (Diltiazem Hcl Cd 240 Mg Cap.Er.Deg) 240 mg PO BEDTIME [facility]; Protocol Last Admin: 12/13/23 20:55 Dose: 240 mg Documented By: GARRY Ceftriaxone Sodium 2 gm/ (Sodium Chloride) 50 mls @ 100 mls/hr IV Q24H [facility] Last Infusion: 12/14/23 07:33 Dose: Infused Documented By: MORTEZA Melatonin (Melatonin 3 Mg Tablet) 6 mg PO BEDTIME PRN PRN Reason: Insomnia Pt Own (Primidone (250 Mg Tablet)) 250 mg PO BEDTIME [facility] Last Admin: 12/13/23 21:32 Dose: 250 mg Documented By: HO.DITOLC Ondansetron HCl (Ondansetron Hcl 4 Mg/2 Ml Vial) 4 mg IVPUSH Q8H PRN PRN Reason: Nausea and Vomiting Oxybutynin Chloride (Oxybutynin Chloride Er 5 Mg Tab.Er.24) 5 mg PO BEDTIME [facility] Last Admin: 12/13/23 20:54 Dose: 5 mg Documented By: GARRY Propranolol HCl (Propranolol Hcl 20 Mg Tablet) 60 mg PO BID [facility]; Protocol Last Admin: 12/14/23 09:49 Dose: 60 mg Documented By: DENNIS Sertraline HCl (Sertraline Hcl 100 Mg Tablet) 100 mg PO DAILY [facility] Last Admin: 12/14/23 09:48 Dose: 100 mg Documented By: DENNIS Sodium Chloride (0.9 % Sodium Chloride Flush 3 Ml Syringe) 3 ml IVFLUSH QSHIFT [facility] Last Admin: 12/14/23 09:49 Dose: 3 ml Documented By: DENNIS Labs 12/14/23 05:42 12/14/23 05:42 Labs: Laboratory Results - last 24 hr 12/14/23 05:42 MCV 99.7 H MCH 33.4 H MCHC 33.5 RDW 12.8 Plt Count 96 L MPV 12.1 Immature Gran % (Auto) 0.5 H Neut % (Auto) 78.2 H Lymph % (Auto) 9.8 L [place] % (Auto) 10.9 Eos % (Auto) 0.2 Baso % (Auto) 0.4 Lymph # (Auto) 0.6 L [place] # (Auto) 0.6 Eos # (Auto) 0.0 Baso # (Auto) 0.0 Abs Immat Gran (auto) 0.03 Absolute Neuts (auto) 4.5 Absolute Nucleated RBC 0.000 Nucleated RBC % (auto) 0.0 Anion Gap 12 Estim Creat Clear Calc 74.0 Estimated GFR > 60 Random Glucose 98 Calcium 8.7 D Microbiology Microbiology Results: Microbiology 12/13/23 Unknown Urine Culture - Final Urine clean catch - Urine brown top 12/13/23 02:46 Blood Culture - Preliminary Blood - Venous Gram negative joaquín 12/13/23 02:43 Blood Culture - Preliminary Blood - Venous Gram negative joaquín Assessment and Plan (1) Gram-negative bacteremia: Status: Acute (2) Pyelonephritis: Status: Acute Plan This is a 63-year-old female with pertinent history of atrial fibrillation on Eliquis, gastroesophageal reflux disease, essential tremor, mood disorder who presents to the emergency department for evaluation of abdominal discomfort, nausea and vomiting. #. Sepsis due to Gram-negative bacteremia in the setting of pyelonephritis with UTI: Sepsis resolved. Awaiting cultures #. AFib with RVR in the setting of above: Continue p.o. diltiazem. On Eliquis. #. Thrombocytopenia: Seems chronic, a little worse due to infection. Outpatient follow-up #. Hypokalemia due to GI losses. Repleted #. Elevated BNP: No signs or symptoms of CHF. #. Essential tremor: On primidone and propranolol #. Mood disorder: On sertraline #. Gastroesophageal reflux disease: On PPI DVT prophylaxis: Eliquis Full code Reason for continued hospitalization: IV antibiotics, awaiting cultures Quality Stroke Does the patient have a stroke diagnosis?: No VTE Prior VTE?: No VTE Risk Level:: Medical - moderate - high VTE Device Contraindication: Treatment Not Indicated VTE Drug Contraindication: N/A - Med Ordered
[2023-12-14] MEDS: oxyBUTYnin chloride ER 5 MG TAB.ER.24 PO (21:29)
[2023-12-14] MEDS: dilTIAZem HCL CD 240 MG CAP.ER.DEG PO (21:32)
[2023-12-15] VITALS (7 sets, daily range): BP systolic 121–145; BP diastolic 69–99; PULSE 96–108; RESP 16–20; TEMP 36.5–37.4; O2SAT 97–100
[2023-12-15 05:55] LABS: MANUAL DIFF FLAG NO
[2023-12-15 06:01] LABS: Basophils Percent Auto 0.4 % (0-2); Eosinophils Percent Auto 0.6 % (0-4); Hematocrit 36.7 % (37.0-47.0); Hemoglobin 12.2 g/dl (12.0-16.0); Imm Gran Abs Auto 0.03 X10*3/uL (0.00-0.03); Imm Gran Pct Auto 0.6 % (0.0-0.4); Lymphocytes Absolute Auto 0.6 X10*3/uL (1.2-4.9); Lymphocytes Percent Auto 11.3 % (20-40); Mean Corpuscular HGB Conc 33.2 g/dl (31.0-35.0); Mean Corpuscular Hemoglobin 32.9 pg (27.0-33.0); Mean Corpuscular Volume 98.9 fL (80.0-98.0); Mean Platelet Volume 12.3 fL (9.4-12.3); Monocytes Absolute Auto 0.5 X10*3/uL (0.1-1.2); Monocytes Percent Auto 9.6 % (2-11); Neutrophils Percent Auto 77.5 % (45-73); Platelet Count 114 X10*3/uL (160-400); Red Blood Count 3.71 X10*6/uL (4.20-5.50); Red Cell Distribution Width 12.8 % (11.0-16.0); White Blood Count 5.1 X10*3/uL (4.8-10.8)
[2023-12-15 06:14] LABS: Anion Gap 13 (12-20); Blood Urea Nitrogen 7 mg/dL (9-16); Calcium 9.1 mg/dL (8.4-10.2); Carbon Dioxide 22 mmol/L (22-29); Chloride 106 mmol/L (96-108); Creatinine Clr Calc Pharmacy 79.3; Estimated Glomerular Filt Rate > 60; Glucose Random 104 mg/dL (60-115); Potassium 3.4 mmol/L (3.3-5.1); Sodium 138 mmol/L (135-145)
[2023-12-15] MEDS: cefTRIAXone sodium 2 GM in 0.9 % Sodium Chloride 50 ML IV (06:34)
[2023-12-15] MEDS: Ascorbic Acid 500 MG TABLET PO (08:24)
[2023-12-15] MEDS: Propranolol HCL 20 MG TABLET 60 MG PO ×2 (08:24→20:26)
[2023-12-15] MEDS: Sertraline HCL 100 MG TABLET PO (08:24)
[2023-12-15] MEDS: Apixaban 5 MG TABLET PO ×2 (08:24→20:21)
[2023-12-15] MEDS: Celecoxib 200 MG CAPSULE PO ×2 (08:24→20:21)
[2023-12-15] MEDS: 0.9 % Sodium Chloride Flush 3 ML SYRINGE IVFLUSH ×3 (08:26→20:23)
--- NOTE | 2023-12-15 15:02 | HO.PM.IMPN ---
Subjective Subjective Date of Service: 12/15/23 Interval History: Continues with fatigue and vague abdominal pain Review of Systems Denies chest pain Denies shortness of breath Denies nausea vomiting diarrhea Denies fever chills Physical Exam Vital Signs: Vital Signs: Last Vital Signs Temp 98.3 F 12/15/23 11:38 Pulse 105 H 12/15/23 11:38 Resp 16 12/15/23 11:38 BP 141/93 H 12/15/23 11:38 Pulse Ox 100 12/15/23 11:38 O2 Del Method Room Air 12/15/23 11:38 BMI result Body Mass Index 32.9 Const: Other: Awake alert no acute distress Resp: Other: Clear to auscultation bilaterally no rales rhonchi or wheezes Cardio: Other: No S4; positive S1-S2; no S3 murmurs rubs or gallops GI: Other: Soft nontender nondistended normoactive bowel sounds Extrem: Other: No edema bilaterally Objective Data Active Medications Acetaminophen (Acetaminophen 325 Mg Tablet) 650 mg PO Q6H PRN PRN Reason: Pain, Mild (Pain Scale 1-3) Apixaban (Apixaban 5 Mg Tablet) 5 mg PO BID [facility] Last Admin: 12/15/23 08:24 Dose: 5 mg Documented By: JONATHAN Ascorbic Acid (Ascorbic Acid 500 Mg Tablet) 500 mg PO DAILY [facility] Last Admin: 12/15/23 08:24 Dose: 500 mg Documented By: JONATHAN Celecoxib (Celecoxib 200 Mg Capsule) 200 mg PO BID [facility] Last Admin: 12/15/23 08:24 Dose: 200 mg Documented By: JONATHAN Diltiazem HCl (Diltiazem Hcl Cd 240 Mg Cap.Er.Deg) 240 mg PO BEDTIME [facility]; Protocol Last Admin: 12/14/23 21:32 Dose: 240 mg Documented By: DENNIS Ceftriaxone Sodium 2 gm/ (Sodium Chloride) 50 mls @ 100 mls/hr IV Q24H [facility] Last Infusion: 12/15/23 07:20 Dose: Infused Documented By: NELLA Melatonin (Melatonin 3 Mg Tablet) 6 mg PO BEDTIME PRN PRN Reason: Insomnia Pt Own (Primidone (250 Mg Tablet)) 250 mg PO BEDTIME [facility] Last Admin: 12/14/23 22:49 Dose: 250 mg Documented By: DENNIS Ondansetron HCl (Ondansetron Hcl 4 Mg/2 Ml Vial) 4 mg IVPUSH Q8H PRN PRN Reason: Nausea and Vomiting Oxybutynin Chloride (Oxybutynin Chloride Er 5 Mg Tab.Er.24) 5 mg PO BEDTIME [facility] Last Admin: 12/14/23 21:29 Dose: 5 mg Documented By: DENNIS Propranolol HCl (Propranolol Hcl 20 Mg Tablet) 60 mg PO BID [facility]; Protocol Last Admin: 12/15/23 08:24 Dose: 60 mg Documented By: JONATHAN Sertraline HCl (Sertraline Hcl 100 Mg Tablet) 100 mg PO DAILY [facility] Last Admin: 12/15/23 08:24 Dose: 100 mg Documented By: JONATHAN Sodium Chloride (0.9 % Sodium Chloride Flush 3 Ml Syringe) 3 ml IVFLUSH QSHIFT [facility] Last Admin: 12/15/23 08:26 Dose: 3 ml Documented By: JONATHAN Labs 12/15/23 05:36 12/15/23 05:36 Labs: Laboratory Results - last 24 hr 12/15/23 05:36 MCV 98.9 H MCH 32.9 MCHC 33.2 RDW 12.8 Plt Count 114 L MPV 12.3 Immature Gran % (Auto) 0.6 H Neut % (Auto) 77.5 H Lymph % (Auto) 11.3 L [place] % (Auto) 9.6 Eos % (Auto) 0.6 Baso % (Auto) 0.4 Lymph # (Auto) 0.6 L [place] # (Auto) 0.5 Eos # (Auto) 0.0 Baso # (Auto) 0.0 Abs Immat Gran (auto) 0.03 Absolute Neuts (auto) 4.0 Absolute Nucleated RBC 0.000 Nucleated RBC % (auto) 0.0 Anion Gap 13 Estim Creat Clear Calc 79.3 Estimated GFR > 60 Random Glucose 104 Calcium 9.1 Microbiology Microbiology Results: Microbiology 12/13/23 02:46 Blood Culture - Final Blood - Venous Escherichia coli 12/13/23 02:43 Blood Culture - Final Blood - Venous Escherichia coli Assessment and Plan (1) Gram-negative bacteremia: Status: Acute (2) UTI (urinary tract infection): Status: Acute (3) Atrial fibrillation: Status: Acute Plan This is a 63-year-old female with pertinent history of atrial fibrillation on Eliquis, gastroesophageal reflux disease, essential tremor, mood disorder who presents to the emergency department for evaluation of abdominal discomfort, nausea and vomiting. Urine culture with greater than 100,000 multiple colonies however 2/2 blood cultures positive for E coli 1.Sepsis due to Gram-negative bacteremia (sepsis resolved) -2/2 bottles with E coli sensitive to ceftriaxone -will discuss with ID but likely will need 2 weeks of oral Ceftin upon discharge 2. UTI/pyelonephritis -as above 3.AFib with RVR -rate now well controlled -continue Eliquis 4.Thrombocytopenia -at baseline; no acute bleeding -follow clinically Eliquis Full code Reason for continued hospitalization: IV antibiotics for bacteremia Quality Stroke Does the patient have a stroke diagnosis?: No VTE Prior VTE?: No VTE Risk Level:: Medical - moderate - high VTE Device Contraindication: Treatment Not Indicated VTE Drug Contraindication: N/A - Med Ordered
[2023-12-15] MEDS: oxyBUTYnin chloride ER 5 MG TAB.ER.24 PO (20:21)
[2023-12-15] MEDS: dilTIAZem HCL CD 240 MG CAP.ER.DEG PO (20:22)
--- NOTE | 2023-12-15 23:47 | W.PM.IDCN ---
History of Present Illness Data of Consult Service Date: 12/15/23 Requesting physician: Nico Garcia Primary Care Provider: Hector Kinsey MD HPI Reason for consult: right pyelonephritis, sepsis with pulse 103 and respiratory rate 22 She presents with cloudy urine as well as dark but not bloody urine. She has no dysuria or flank pain or fever. She has E coli sensitive to Ceftriaxone. She has no obstruction on CT abdomen. 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 [employer] Meds Allergies Allergy/AdvReac Type Severity Reaction Status Date / Time latex [LATEX] Allergy Intermediate RASH Verified 12/12/23 20:02 meperidine AdvReac Intermediate VOMITING Verified 12/12/23 20:02 STOMACH UPSET Active Medications: Current Medications Acetaminophen (Acetaminophen 325 Mg Tablet) 650 mg PO Q6H PRN PRN Reason: Pain, Mild (Pain Scale 1-3) Apixaban (Apixaban 5 Mg Tablet) 5 mg PO BID [facility] Last Admin: 12/15/23 20:21 Dose: 5 mg Ascorbic Acid (Ascorbic Acid 500 Mg Tablet) 500 mg PO DAILY [facility] Last Admin: 12/15/23 08:24 Dose: 500 mg Celecoxib (Celecoxib 200 Mg Capsule) 200 mg PO BID [facility] Last Admin: 12/15/23 20:21 Dose: 200 mg Diltiazem HCl (Diltiazem Hcl Cd 240 Mg Cap.Er.Deg) 240 mg PO BEDTIME [facility]; Protocol Last Admin: 12/15/23 20:22 Dose: 240 mg Ceftriaxone Sodium 2 gm/ (Sodium Chloride) 50 mls @ 100 mls/hr IV Q24H [facility] Last Infusion: 12/15/23 07:20 Dose: Infused Melatonin (Melatonin 3 Mg Tablet) 6 mg PO BEDTIME PRN PRN Reason: Insomnia Pt Own (Primidone (250 Mg Tablet)) 250 mg PO BEDTIME [facility] Last Admin: 12/15/23 20:21 Dose: 250 mg Ondansetron HCl (Ondansetron Hcl 4 Mg/2 Ml Vial) 4 mg IVPUSH Q8H PRN PRN Reason: Nausea and Vomiting Oxybutynin Chloride (Oxybutynin Chloride Er 5 Mg Tab.Er.24) 5 mg PO BEDTIME [facility] Last Admin: 12/15/23 20:21 Dose: 5 mg Propranolol HCl (Propranolol Hcl 20 Mg Tablet) 60 mg PO BID [facility]; Protocol Last Admin: 12/15/23 20:26 Dose: 60 mg Sertraline HCl (Sertraline Hcl 100 Mg Tablet) 100 mg PO DAILY [facility] Last Admin: 12/15/23 08:24 Dose: 100 mg Sodium Chloride (0.9 % Sodium Chloride Flush 3 Ml Syringe) 3 ml IVFLUSH QSHIFT [facility] Last Admin: 12/15/23 20:23 Dose: 3 ml Home Medications ?Medication ?Instructions ?Recorded ?Confirmed ?Last Taken ?Type apixaban 5 mg tablet (Eliquis) 5 mg PO BID 11/19/22 12/13/23 12/12/23 History diltiazem HCl 240 mg 240 mg PO BEDTIME 11/19/22 12/13/23 12/12/23 History capsule,extended release 24 hr primidone 250 mg tablet 250 mg PO BEDTIME 11/19/22 12/13/23 12/12/23 History propranolol 20 mg tablet 60 mg PO BID 11/19/22 12/13/23 12/12/23 History sertraline 100 mg tablet 100 mg PO DAILY 11/19/22 12/13/23 12/12/23 History ascorbic acid (vitamin C) 500 mg 500 mg PO DAILY 12/13/23 12/13/23 12/12/23 History tablet (Vitamin C) oxybutynin chloride 5 mg tablet 5 mg PO BEDTIME 12/13/23 12/13/23 12/12/23 History Physical Exam Vital Signs: Vital Signs: Last Vital Signs Temp 98.7 F 12/15/23 19:20 Pulse 103 H 12/15/23 20:26 Resp 16 12/15/23 19:20 BP 141/69 H 12/15/23 20:26 Pulse Ox 100 12/15/23 19:20 O2 Del Method Room Air 12/15/23 19:20 BMI result Body Mass Index 32.9 Const: General: cooperative HEENT: Head: Yes normal to inspection Face and sinus: Yes normal facial exam Mouth: Normal oral and palatal mucosa present Teeth and gingiva: dentition normal Eyes: General: appearance normal, both eyes and all related structures Pupils: Equal, round and reactive pupils present Resp: Effort & Inspection: normal respiratory effort Cardio: Rate: regular rate Rhythm: regular rhythm GI: Palpation (GI): Soft to palpation and nontender : General: Yes no CVA tenderness Back/Spine/Pelvis: Back: no CVA tenderness Skin: General skin exam: no rashes or lesions noted Neuro: General: moves all extremities Cranial nerves: Yes Equal, round and reactive pupils present Extrem: General: Yes normal to inspection Psych: Appearance: grossly normal Results Labs 12/15/23 05:36 12/15/23 05:36 Labs: Short CBC 12/15/23 Range/Units 05:36 WBC 5.1 (4.8-10.8) X10*3/uL Hgb 12.2 (12.0-16.0) g/dl Hct 36.7 L (37.0-47.0) % Plt Count 114 L (160-400) X10*3/uL BMP 12/15/23 05:36 Sodium 138 Potassium 3.4 Chloride 106 Carbon Dioxide 22 BUN 7 L Creatinine 0.70 Calcium 9.1 Microbiology Microbiology Results: Microbiology 12/13/23 02:46 Blood - Venous Blood Culture - Final Escherichia coli 12/13/23 02:43 Blood - Venous Blood Culture - Final Escherichia coli 12/13/23 Unknown Urine clean catch - Urine brown top Urine Culture - Final Assessment and Plan (1) Gram-negative bacteremia: Status: Acute (2) Pyelonephritis: Status: Acute Plan E coli sepsis Bacteremia She has probable right sided pyelonephritis with no specific inciting factors Cephalosporins good choice Make sure repeat blood cultures pending. Po cephalosporin for 14 day total. Acidify urine ?methenamine outpatient.
[2023-12-16] VITALS (7 sets, daily range): BP systolic 114–143; BP diastolic 69–93; PULSE 94–116; RESP 16–20; TEMP 36.1–36.9; O2SAT 96–99
[2023-12-16] MEDS: cefTRIAXone sodium 2 GM in 0.9 % Sodium Chloride 50 ML IV (06:34)
[2023-12-16] MEDS: 0.9 % Sodium Chloride Flush 3 ML SYRINGE IVFLUSH ×2 (07:58→16:58)
[2023-12-16] MEDS: Celecoxib 200 MG CAPSULE PO ×2 (07:59→20:28)
[2023-12-16] MEDS: Propranolol HCL 20 MG TABLET 60 MG PO ×2 (07:59→20:27)
[2023-12-16] MEDS: Apixaban 5 MG TABLET PO ×2 (07:59→20:29)
[2023-12-16] MEDS: Ascorbic Acid 500 MG TABLET PO (07:59)
[2023-12-16] MEDS: Sertraline HCL 100 MG TABLET PO (07:59)
--- NOTE | 2023-12-16 14:25 | P.PNIM_ITS ---
Subjective Subjective Date of Service: 12/16/23 Interval History: No acute issues overnight. Remains afebrile. Notes improvement since admission Review of Systems Denies chest pain Denies shortness of breath Denies nausea vomiting diarrhea Denies fever chills Physical Exam 2 Vital Signs: Vital Signs: Last Vital Signs Temp 97.0 F 12/16/23 11:36 Pulse 116 H 12/16/23 11:36 Resp 20 12/16/23 11:36 BP 114/84 12/16/23 11:36 Pulse Ox 99 12/16/23 11:36 O2 Del Method Room Air 12/16/23 11:36 BMI result Body Mass Index 32.9 Const: Other: Awake alert no acute distress Resp: Other: Clear to auscultation bilaterally no rales rhonchi or wheezes Cardio: Other: No S4; positive S1-S2; no S3 murmurs rubs or gallops GI: Other: Soft nontender nondistended normoactive bowel sounds Extrem: Other: No edema bilaterally Objective Data Active Medications Acetaminophen (Acetaminophen 325 Mg Tablet) 650 mg PO Q6H PRN PRN Reason: Pain, Mild (Pain Scale 1-3) Apixaban (Apixaban 5 Mg Tablet) 5 mg PO BID [facility] Last Admin: 12/16/23 07:59 Dose: 5 mg Documented By: JONATHAN Ascorbic Acid (Ascorbic Acid 500 Mg Tablet) 500 mg PO DAILY [facility] Last Admin: 12/16/23 07:59 Dose: 500 mg Documented By: JONATHAN Celecoxib (Celecoxib 200 Mg Capsule) 200 mg PO BID [facility] Last Admin: 12/16/23 07:59 Dose: 200 mg Documented By: JONATHAN Diltiazem HCl (Diltiazem Hcl Cd 240 Mg Cap.Er.Deg) 240 mg PO BEDTIME [facility]; Protocol Last Admin: 12/15/23 20:22 Dose: 240 mg Documented By: CONNER Ceftriaxone Sodium 2 gm/ (Sodium Chloride) 50 mls @ 100 mls/hr IV Q24H [facility] Last Infusion: 12/16/23 07:22 Dose: Infused Documented By: NELLA Melatonin (Melatonin 3 Mg Tablet) 6 mg PO BEDTIME PRN PRN Reason: Insomnia Pt Own (Primidone (250 Mg Tablet)) 250 mg PO BEDTIME [facility] Last Admin: 12/15/23 20:21 Dose: 250 mg Documented By: CONNER Ondansetron HCl (Ondansetron Hcl 4 Mg/2 Ml Vial) 4 mg IVPUSH Q8H PRN PRN Reason: Nausea and Vomiting Oxybutynin Chloride (Oxybutynin Chloride Er 5 Mg Tab.Er.24) 5 mg PO BEDTIME [facility] Last Admin: 12/15/23 20:21 Dose: 5 mg Documented By: CONNER Propranolol HCl (Propranolol Hcl 20 Mg Tablet) 60 mg PO BID [facility]; Protocol Last Admin: 12/16/23 07:59 Dose: 60 mg Documented By: JONATHAN Sertraline HCl (Sertraline Hcl 100 Mg Tablet) 100 mg PO DAILY [facility] Last Admin: 12/16/23 07:59 Dose: 100 mg Documented By: JONATHAN Sodium Chloride (0.9 % Sodium Chloride Flush 3 Ml Syringe) 3 ml IVFLUSH QSHIFT [facility] Last Admin: 12/16/23 07:58 Dose: 3 ml Documented By: JONATHAN Labs 12/15/23 05:36 12/15/23 05:36 Assessment and Plan (1) Gram-negative bacteremia: Status: Acute (2) Pyelonephritis: Status: Acute Plan This is a 63-year-old female with pertinent history of atrial fibrillation on Eliquis, gastroesophageal reflux disease, essential tremor, mood disorder who presents to the emergency department for evaluation of abdominal discomfort, nausea and vomiting. Urine culture with greater than 100,000 multiple colonies however 2/2 blood cultures positive for E coli 1.Sepsis due to Gram-negative bacteremia (sepsis resolved) -2/2 bottles with E coli sensitive to ceftriaxone -await repeat negative blood cultures -will DC home on 2 weeks of oral Ceftin 2. UTI/pyelonephritis -as above 3.AFib with RVR -rate now well controlled -continue Eliquis 4.Thrombocytopenia -at baseline; no acute bleeding -follow clinically Eliquis Full code Reason for continued hospitalization: IV antibiotics for bacteremia Quality Stroke Does the patient have a stroke diagnosis?: No VTE Prior VTE?: No VTE Risk Level:: Medical - moderate - high VTE Device Contraindication: Treatment Not Indicated VTE Drug Contraindication: N/A - Med Ordered
[2023-12-16] MEDS: dilTIAZem HCL CD 240 MG CAP.ER.DEG PO (20:28)
[2023-12-16] MEDS: oxyBUTYnin chloride ER 5 MG TAB.ER.24 PO (20:28)
[2023-12-17 03:28] VITALS: BP 135/86; PULSE 93; RESP 16; TEMP 36.3; O2SAT 98
[2023-12-17] MEDS: cefTRIAXone sodium 2 GM in 0.9 % Sodium Chloride 50 ML IV (06:41)
[2023-12-17 08:00] VITALS: BP 139/95; PULSE 106; RESP 20; TEMP 36.9; O2SAT 97
[2023-12-17] MEDS: Sertraline HCL 100 MG TABLET PO (09:08)
[2023-12-17] MEDS: Propranolol HCL 20 MG TABLET 60 MG PO (09:08)
[2023-12-17] MEDS: Apixaban 5 MG TABLET PO (09:08)
[2023-12-17] MEDS: Ascorbic Acid 500 MG TABLET PO (09:08)
[2023-12-17] MEDS: Celecoxib 200 MG CAPSULE PO (09:08)
[2023-12-17] MEDS: 0.9 % Sodium Chloride Flush 3 ML SYRINGE IVFLUSH ×2 (09:09)
--- NOTE | 2023-12-17 10:58 | PM.DS ---
DS: Providers Provider Date of Service: 12/17/23 Date of admission: 12/13/23 04:39 Date of discharge: 12/17/23 Primary care physician: Hector Kinsey MD Consults: 12/15/23 15:27 Consult to Infectious Diseases Routine Consulting Provider: [facility] Infectious Disease Reason for consultation: E coli bacteremia Has provider been notified: Yes DS: Diagnosis Discharge Diagnosis (1) Gram-negative bacteremia: Status: Acute (2) Pyelonephritis: Status: Acute DS: Summary Hospital Course Hospital Course: 63-year-old female with pertinent history of atrial fibrillation on Eliquis, gastroesophageal reflux disease, essential tremor, mood disorder who presents to the emergency department for evaluation of abdominal discomfort, nausea and vomiting. Patient states her symptoms started 2 days prior to presentation. She has been having nausea and multiple episodes of nonbloody emesis. She also felt her heart race and states that she has not been in RVR since her ablation which was 11 years ago. Admits fevers and chills. Also endorses increased urinary frequency. Has never had a UTI before. No chest discomfort, palpitations, shortness of breath, changes in bowel habits Hospital Course Patient admitted to telemetry where her rate remained well controlled. She was started on IV ceftriaxone given her active urinary sediment on admission. CT of abdomen pelvis was obtained and demonstrated heterogeneous enhancement of kidneys particularly on the right reflective of pyelonephritis. She also had some mild bladder wall thickening consistent with cystitis. Blood cultures grew out E coli 2/2 vials. She continued to improve and repeat blood cultures have been negative. At the time of discharge she has been afebrile for greater than 48 hours and is medically acceptable for discharge. She was seen by ID who agreed with course and added a urinary a set of iron to her regimen. She will take the Ceftin and eosinophilia for 2 weeks and follow up with PCP Time Attestation Discharge Coordination Time (in mins): 35 Quality: Safe Use of Opioids Does Pt have an Active Cancer Diagnosis on the Problem List?: No Quality: Stroke Does the patient have a stroke diagnosis?: No Physical Exam Vital Signs: Vital Signs: Last Vital Signs Temp 98.5 F 12/17/23 08:00 Pulse 106 H 12/17/23 08:00 Resp 20 12/17/23 08:00 BP 139/95 H 12/17/23 08:00 Pulse Ox 97 12/17/23 08:00 O2 Del Method Room Air 12/17/23 08:00 BMI result Body Mass Index 32.9 Const: Other: Awake alert no acute distress Resp: Other: Clear to auscultation bilaterally no rales rhonchi or wheezes Cardio: Other: No S4; positive S1-S2; no S3 murmurs rubs or gallops GI: Other: Soft nontender nondistended normoactive bowel sounds Extrem: Other: No edema bilaterally DS: Data Data Completed and Pending Labs on day of discharge: Preliminary micro results at discharge 12/16/23 00:14 Blood Culture - Preliminary Blood - Venous No growth after 24 hours. 12/16/23 00:14 Blood Culture - Preliminary Blood - Venous No growth after 24 hours. Discharge Plan Discharge Anticipated Discharge Date/Time: 12/17/23 10:53 Patient Disposition: Home, Self-Care Discharge Diagnosis: EColi bacteremia Referrals: Hector Kinsey MD [Primary Care Provider] - 1 Week Discharge Medications: New cefuroxime axetil 500 mg tablet 500 mg PO BID 14 Days Qty: 28 0RF methenamine hippurate [Hiprex] 1 gram tablet 1 g PO BID Qty: 60 0RF Continued celecoxib 200 mg capsule 200 mg PO BID Qty: 60 3RF oxybutynin chloride 5 mg tablet 5 mg PO BEDTIME ascorbic acid (vitamin C) [Vitamin C] 500 mg Tablet 500 mg PO DAILY sertraline 100 mg tablet 100 mg PO DAILY propranolol 20 mg tablet 60 mg PO BID diltiazem HCl 240 mg capsule,extended release 24hr 240 mg PO BEDTIME primidone 250 mg tablet 250 mg PO BEDTIME Eliquis 5 mg tablet 5 mg PO BID Discharge Orders: Discharge Order (Routine); Ordered 12/17/23 Ordered By: Nico Garcia Diet: Advance to usual diet Activity on Discharge: As tolerated Stand Alone Forms: Patient Portal Discharge page Print Language: Telugu Care Plan Goals: Resume all medicines as taken prior to hospitalization Health Concerns: Ceftin 500 mg twice daily for 14 weeks. Methenamine twice a day times 14 days; then as per PCP Plan of Treatment: Follow-up with PCP next available Assessment: See discharge summary
--- NOTE | 2023-12-17 11:28 | MHC.CM.PN ---
Patient is discharged to home self care today. She has arranged for transportation home.
--- NOTE | 2023-12-18 12:56 | P.CDIM_ITS ---
PROVIDER RESPONSE TEXT: To clarify, the appropriate diagnosis supported by the clinical indicators: Other (explain): acute QUERY TEXT: PHYSICIAN'S DOCUMENTATION REQUEST Date of Query: 12/16/2023 12:53 PM EDT Patient Name: Milli Remy Admit Date: 12/13/2023 Dear Nico Garcia, A review of the medical record indicates additional documentation may be needed. Please review below and update the documentation accordingly. Clinical Indicators: Per Hospitalist Progress Note 12/15/23: UTI/pyelonephritis Per Infectious Disease Consultation 12/15/23: She has probable right sided pyelonephritis with no specific inciting factors Cephalosporins good choice Clarify which of the following accurately represents the acuity of the Pyelonephritis. Possible options might include: Acute Acute on chronic Compensated Chronic stable condition Remission Other (explain) Clinically unable to determine (explain) Thank you, Bhavna Aquino RN Use of terms such as suspected, likely, concern for, or probable (associated with a specific diagnosi s that is being evaluated, monitored, or treated as if it exists) are acceptable and can be coded in the inpatient se tting, when documented at the time of discharge. Please use your independent medical judgment in providing your response. THIS QUERY IS PART OF THE PERMANENT MEDICAL RECORD
== END 2023-12-17 12:55 | disposition home or self-care (01) | DRG 872 ==
LOC: HO.ED 12-13 04:39 → HO.EDOVER 12-13 04:52 → HO.IMC 12-14 07:42
PROVIDERS: Nurse Practitioner Family; Admitting Provider Student in an Organized Health Care Education/Training Program; Emergency Provider Emergency Medicine; PCP Family Medicine; Visit Provider Hospitalist
DX: A41.51 Sepsis due to Escherichia coli [E. coli] (principal); N10 Acute pyelonephritis; N30.90 Cystitis, unspecified without hematuria; I48.91 Unspecified atrial fibrillation; K21.9 Gastro-esophageal reflux disease without esophagitis; D69.6 Thrombocytopenia, unspecified; E87.6 Hypokalemia; G25.0 Essential tremor; Z20.822 Contact with and (suspected) exposure to COVID-19; Z91.040 Latex allergy status; Z79.01 Long term (current) use of anticoagulants; Z79.899 Other long term (current) drug therapy
CPT/HCPCS: 0241U; 36415; 71046; 74177; 80048; 80053; 81001; 82248; 82803; 83036; 83605; 83690; 83735; 83880; 84145; 84443; 84484; 85007; 85025; 85027; 85610; 86140; 87040; 87077; 87086; 87186; 87205; 93005; 99285; J0696; Q9967

== ENCOUNTER → 2023-12-12 19:51 | Outpatient (BNV) | payer OTHER, SELFPAY | PROVIDERS: Admitting Provider Student in an Organized Health Care Education/Training Program; Emergency Provider Emergency Medicine; PCP Family Medicine; Visit Provider Internal Medicine | DX: I48.91 Unspecified atrial fibrillation (principal) | CPT/HCPCS: 93010 ==

== ENCOUNTER → 2023-12-13 04:39 | Outpatient (BNV) | payer OTHER, SELFPAY | PROVIDERS: Admitting Provider Student in an Organized Health Care Education/Training Program; Emergency Provider Emergency Medicine; PCP Family Medicine; Visit Provider Internal Medicine | DX: R78.81 Bacteremia (principal); N12 Tubulo-interstitial nephritis, not specified as acute or chronic | CPT/HCPCS: 99222 ==

== ENCOUNTER → 2023-12-13 04:39 | Outpatient (BNV) | payer OTHER, SELFPAY | PROVIDERS: Admitting Provider Student in an Organized Health Care Education/Training Program; Emergency Provider Emergency Medicine; PCP Family Medicine; Visit Provider Student in an Organized Health Care Education/Training Program | DX: R78.81 Bacteremia (principal); N12 Tubulo-interstitial nephritis, not specified as acute or chronic | CPT/HCPCS: 99223; 99232; 99239 ==

== ENCOUNTER 2024-04-03 08:26 | Outpatient (REF) | payer OTHER, SELFPAY ==
--- NOTE | ~2024-04-03 | XR_ITS ---
EXAMINATION: XR SHOULDER, RIGHT CLINICAL INFORMATION: Pain. COMPARISON: Radiograph right shoulder 11/19/2022. TECHNIQUE: Three views of the right shoulder. FINDINGS: Again noted severe glenohumeral joint space narrowing with subchondral cystic change, and marginal osteophytes. Stable mild superior subluxation of the humeral head. No acute fracture or dislocation. No abnormal soft tissue calcification. XR/XR shoulder RT min 2V IMPRESSION: 1. Severe glenohumeral joint degenerative osteoarthritis. 2. Redemonstration of mild superior subluxation of the humeral head, likely reflecting underlying rotator cuff tendon tears. 3. No acute fracture or dislocation.
== END 2024-04-03 08:27 | disposition home or self-care (01) ==
LOC: HO.HOSX 08:26
PROVIDERS: Visit Provider Physician Assistant
DX: M25.511 Pain in right shoulder (principal); M19.011 Primary osteoarthritis, right shoulder
CPT/HCPCS: 20610; 73030; J1010

== ENCOUNTER 2024-04-03 10:40 | Outpatient (AMB) | payer OTHER, SELFPAY ==
--- NOTE | 2024-04-03 10:43 | A.OFFVIS_ITS ---
Intake Visit Reasons: OV-RT shoulder pain/hard time lifting w/out pain Intake Note: Milli a 63 year old female who presents today for a follow up of right shoulder pain, last injection on 11/19/22. Patient reports last injection provided her with relief and is requesting to repeat injection. She continues to have pain that is aggravated at work due to lifting/pulling a basket attached to a rope that sends paperwork up and down the building. Allergies latex [LATEX] Allergy (Intermediate, Verified 04/03/24 11:03) RASH meperidine Adverse Reaction (Intermediate, Verified 04/03/24 11:03) VOMITING STOMACH UPSET Medication List - Last Reconciled 04/03/24 by LESIA Palacio-Radha apixaban (Eliquis) 5 mg PO BID ascorbic acid (vitamin C) (Vitamin C) 500 mg PO DAILY cefuroxime axetil 500 mg PO BID 14 days celecoxib 200 mg PO BID diltiazem HCl CD 240 mg PO BEDTIME methenamine hippurate (Hiprex) 1 g PO BID oxybutynin chloride 5 mg PO BEDTIME primidone 250 mg PO BEDTIME propranolol 60 mg PO BID sertraline 100 mg PO DAILY HPI HPI OV-RT shoulder pain/hard time lifting w/out pain: Details: 63-year-old female who returns to the office today for a follow-up of right shoulder pain. She continues to have pain in her shoulder that is aggravated at work due to lifting and pulling a basket attached to a rope that sends paperwork up and down the building. She also experiences difficulty with driving and getting dressed. She had her last injection on 11/19/22 which provided her relief. She would like to repeat the injection today. She does not have a history of diabetes. 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 Tenderness over the bicipital groove and along the deltoid region of the shoulder. Forward flexion to 175, external rotation to 90, internal rotation to S1. 5/5 RTC strength. Negative Tamayo and cross body abduction. NVI. Office Procedures Joint Injection/Aspiration Joint Injection/Aspiration Primary Site: right shoulder Prep: site was prepped using aseptic technique, ethochloride spray was applied and injection warnings given Injected: 80 mg of, DepoMedrol, with 8 mL of, 1% plain lidocaine and in the subcromial space Approach Used: posterolateral Procedure: The patient tolerated the procedure well and there was some relief with the local anesthesia Coding 32568 - Glenohumeral/Tronchanteric Bursa/Intraarticular Procedure code (CPT) selection complete Results Reviewed Results Reviewed: Xrays were obtained in the office today and personally reviewed by me of the right shoulder show mild ghj oa Assessment & Plan Assessment & Plan (1) Osteoarthritis of glenohumeral joint: Code(s): M19.019 - Primary osteoarthritis, unspecified shoulder Category: Medical Plan We discussed options today, which include steroid injection. The patient did consent to move forward with the right shoulder injection, which was tolerated well. I recommended rest, ice, and elevation and OTC anti-inflammatories as needed for discomfort. If symptoms persist or worsen over the next 6-8 weeks, patient will contact the office, otherwise follow-up as needed. ? Orders: Orders XR shoulder RT min 2V Today M25.511 - Pain in right shoulder Patient Instructions: Scribed for Flip Frey PA-C, by Trevin Tsang medical records specialist, on 04/03/2024 at 10:45 AM EST.? I, Flip Frey PA-C, have personally reviewed and agree with the information entered by the scribe. Coding Level of Care Code Est Pt Level 3 (01030) Diagnoses Osteoarthritis of glenohumeral joint M19.019 CPT Codes Coding - Joint 7: 53769 - Glenohumeral/Tronchanteric Bursa/Intraarticular ([id number])
== END 2024-04-03 11:20 | disposition home or self-care (01) ==
PROVIDERS: PCP Family Medicine; Visit Provider Physician Assistant
DX: M19.011 Primary osteoarthritis, right shoulder (principal)
CPT/HCPCS: 20610; 99213

== ENCOUNTER 2024-07-14 15:43 | Outpatient (REF) | payer OTHER, SELFPAY ==
[2024-07-14 16:51] LABS: Appearance Urine Clear; Color Urine Yellow; Glucose Urine UA Negative (Negative); Leukocyte Esterase Urine Negative (Negative); Nitrite Urine Negative (Negative); PH 6.5 (5.0-9.0); Specific Gravity - Urine 1.015 (1.005-1.025); Urine Blood Negative (Negative); Urine Ketones Negative (Negative); Urine Protein Negative (Neg-Trace)
[2024-07-14 17:18] LABS: Alanine Aminotransferase 58 U/L (0-31); Albumin Level 4.4 g/dL (3.5-5.0); Aspartate Amino Transferase 58 U/L (5-31); Bilirubin Direct 0.3 mg/dL (0.0-0.5); Bilirubin Total 0.8 mg/dL (0.0-1.0); Total Protein 7.2 g/dL (6.5-8.0)
[2024-07-14 17:33] LABS: Alkaline Phosphatase 68 U/L (39-117)
== END 2024-07-14 15:44 | disposition home or self-care (01) ==
LOC: HO.LAB 15:43
PROVIDERS: PCP Family Medicine; Visit Provider Family Medicine
DX: K75.81 Nonalcoholic steatohepatitis (NASH) (principal); R10.32 Left lower quadrant pain
CPT/HCPCS: 36415; 80076; 81003

== ENCOUNTER 2024-09-05 10:49 | Emergency (ER) | payer OTHER, SELFPAY ==
[2024-09-05] VITALS (7 sets, daily range): BP systolic 139–177; BP diastolic 94–107; PULSE 82–99; RESP 16–20; TEMP 36.1–36.8; O2SAT 95–98; BMI 34.6
--- NOTE | ~2024-09-05 | XR_ITS ---
EXAMINATION: XR CHEST 1 VIEW HISTORY: Coughing. Pneumonia COMPARISON: Comparison is made with the prior examination dated 12/13/2023. FINDINGS: A single AP portable view of the chest performed at 11:39 AM is submitted. The lungs are expanded and clear. There is no pleural effusion, pneumothorax, or pulmonary vascular congestion. The heart is normal in size. There is degenerative disc disease of the spine. XR/XR chest 1V IMPRESSION: No acute cardiopulmonary abnormality. Electronically signed by: Cornelio Lyons MD 09/05/2024 11:39 AM [facility]
--- NOTE | 2024-09-05 11:23 | ECG_ITS ---
Test Reason : SOB Blood Pressure : */* mmHG Vent. Rate : 88 BPM Atrial Rate : * BPM P-R Int : * ms QRS Dur : 92 ms QT Int : 378 ms P-R-T Axes : * 11 22 degrees QTcB Int : 457 ms Atrial fibrillation Abnormal ECG When compared with ECG of 12-Dec-2023 19:53, No significant change was found Referred By: Brady Lopez Electronically Signed By: ALICIA ARBOLEDA
--- NOTE | 2024-09-05 11:25 | ED.GENADULT ---
HPI - General Adult General Chief complaint: Upper Respiratory Symptoms Stated complaint: SOB Time Seen by Provider: 09/05/24 11:54 Source: patient Mode of arrival: ambulatory Limitations: no limitations History of Present Illness ED Provider: Salvatore Swan PA-C HPI narrative: 64 yo female with history of GERD, mood disorder, afib s/p ablation on Eliquis, HTN, who presents to the ER for evaluation of a dry cough, SOB, fatigue for the last 10 days. Saw PCP yesterday who prescribed albuterol inhaler. She reports wheezing that is new. She is nonsmoker and no history of COPD or asthma. She denies fever, chills, N/V/D, abdominal pain, chest pain. MD complaint: sob, cough Onset (ago): week(s) Location: chest Radiation: non-radiation Severity: moderate Pain Consistency: intermittent Associated symptoms: cough, headaches, loss of appetite, malaise and shortness of breath Treatments prior to arrival: none Related Data Home Medications ?Medication ?Instructions ?Recorded ?Confirmed apixaban 5 mg tablet (Eliquis) 5 mg PO BID 11/19/22 04/03/24 diltiazem HCl 240 mg 240 mg PO BEDTIME 11/19/22 12/13/23 capsule,extended release 24 hr primidone 250 mg tablet 250 mg PO BEDTIME 11/19/22 04/03/24 propranolol 20 mg tablet 60 mg PO BID 11/19/22 04/03/24 sertraline 100 mg tablet 100 mg PO DAILY 11/19/22 04/03/24 ascorbic acid (vitamin C) 500 mg 500 mg PO DAILY 12/13/23 04/03/24 tablet (Vitamin C) oxybutynin chloride 5 mg tablet 5 mg PO BEDTIME 12/13/23 04/03/24 Previous Rx's ?Medication ?Instructions ?Recorded cefuroxime axetil 500 mg tablet 500 mg PO BID 14 days #28 tabs 12/17/23 methenamine hippurate 1 gram 1 g PO BID #60 tabs 12/17/23 tablet (Hiprex) celecoxib 200 mg capsule 200 mg PO BID #60 caps 08/08/24 benzonatate 100 mg capsule 100 mg PO TID PRN cough #20 caps 09/05/24 prednisone 20 mg tablet 40 mg (2 x 20 mg) PO DAILY #8 tabs 09/05/24 Allergies Allergy/AdvReac Type Severity Reaction Status Date / Time latex [LATEX] Allergy Intermediate RASH Verified 09/05/24 11:20 meperidine AdvReac Intermediate VOMITING Verified 09/05/24 11:20 STOMACH UPSET Review of Systems Review of Systems: Yes all other systems are reviewed and are negative [facility] Past Medical History Medical History GERD (gastroesophageal reflux disease) Mood disorder Tremor Afib Social History Social History Household Members: Spouse Housing: House Do you presently have visiting nurse or other home services: No Patient Tobacco Use Status: Never used Tobacco e-Cigarette/Vaping Use: Never Used Second Hand Smoke Exposure: No Advance Directives: No Advance Directives Information Provided: Yes service: No Current occupational status: employed 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 [employer] Physical Exam ED Vital Signs: Vital Signs - 24 hr 09/05/24 11:18 09/05/24 11:59 09/05/24 12:12 Temperature 97.6 F 96.9 F Pulse Rate 94 89 90 Respiratory Rate 18 18 16 Blood Pressure 139/97 H 150/94 H Pulse Oximetry 96 98 Oxygen Delivery Method Room Air Room Air 09/05/24 13:53 09/05/24 14:29 09/05/24 15:14 Temperature 98.3 F 98.2 F Pulse Rate 99 88 82 Respiratory Rate 16 20 Blood Pressure 168/105 H 177/107 H 171/102 H Pulse Oximetry 95 96 Oxygen Delivery Method Room Air Room Air 09/05/24 15:28 Temperature 98.2 F Pulse Rate 82 Respiratory Rate 20 Blood Pressure 171/102 H Pulse Oximetry 96 Oxygen Delivery Method Room Air BMI result Body Mass Index 34.6 Appearance: Alert. Oriented X3. No acute distress. Head: normocephalic, atraumatic. Eyes: Pupils equal, round and reactive to light. ENT: Pharynx normal. No tonsillar swelling or exudate. Hoarse voice Neck: Normal inspection. Neck supple. CVS: Irregularly irregular, regular rhythm. Pulses normal. Respiratory: No respiratory distress. Breath sounds coarse with dry cough but no wheezing or rhonchi (assessed post neb tx) Abdomen: Soft and nontender. +BS x4 Skin: Skin warm and dry. Normal skin color. Normal skin turgor. No rashes. Extremities: No lower extremity edema. No joint swelling. Neuro/psych: Oriented X 3. No motor deficit. No sensory deficit. CN II-XII intact. Normal speech and cognition. Course Course Course Narrative: RME: 64-year-old female presents to ED for 1 week of nonproductive cough with shortness of breath on exertion. Physical exam positive for expiratory wheezing. Negative for any leg swelling or pitting edema. Labs EKG chest x-ray ED brought ordered. Medications Administered Discontinued Medications Generic Name Dose Route Start Last Admin Trade Name Freq PRN Reason Stop Dose Admin Albuterol Sulfate 2.5 mg/ 0 mg 09/05/24 11:54 09/05/24 11:58 Albuterol/Ipratropium 3 ml INHALE 09/05/24 11:55 5 dose ONCE ONE Administration Prednisone 40 mg 09/05/24 13:34 09/05/24 13:52 Prednisone 20 Mg Tablet PO 09/05/24 13:35 40 mg ONCE ONE Administration Propranolol HCl 20 mg 09/05/24 13:33 09/05/24 13:53 Propranolol Hcl 20 Mg Tablet PO 09/05/24 13:34 20 mg ONCE ONE Administration Protocol Medical Decision Making Medical Decision Making MDM Narrative: 64 yo female with hx Afib on Eliquis, GERD, HTN presenting with cough, SOB, malaise x1.5 weeks. VSS on arrival. bronchodilator protocol ordered from triage and patient brought to treatment room. pt re-evaluted after neb treatment with improved aeration, no longer wheezing. labs showing negative trop, BNP 300s but improved from prior. clinically not in CHF exacerbation. CXR without edema or effusion, no PNA. viral swab negative BP noted to be elevated - patient reports not taking her BP meds today, she forgot. she has no chest pain, vision changes, headache or dizziness. she cant recall her diltiazem doses, med rec showing propranolol which was given BP remains elevated. she remains asymptomatic. she would like to be discharged and reports she will go home and take her diltiazem at this time given she is asymptomatic and otherwise stable, comfortable w/ discharge. encouraged home meds and monitoring BP at home. Differential Diagnosis Differential Diagnoses: The differential diagnosis associated with the presentation includes strep, covid, flu, rsv, other viral syndrome, bronchitis, pneumonia Admission/Observation Consideration of admission/observation: Escalation of care including admission/observation considered Lab Data MDM Lab Attestation statement: I reviewed the patient's lab results. mild leukopenia and thrombocytopenia, no major metabolic derangement 09/05/24 11:52 09/05/24 11:52 Labs: Lab Results 09/05/24 09/05/24 Range/Units 11:51 11:52 WBC 3.8 L (4.8-10.8) X10*3/uL RBC 4.20 (4.20-5.50) X10*6/uL Hgb 13.8 (12.0-16.0) g/dl Hct 39.7 (37.0-47.0) % MCV 94.5 (80.0-98.0) fL MCH 32.9 (27.0-33.0) pg MCHC 34.8 (31.0-35.0) g/dl RDW 13.2 (11.0-16.0) % Plt Count 120 L (160-400) X10*3/uL MPV 10.1 (9.4-12.3) fL Immature Gran % (Auto) 0.5 H (0.0-0.4) % Neut % (Auto) 63.6 (45-73) % Lymph % (Auto) 25.9 (20-40) % Cocke % (Auto) 7.7 (2-11) % Eos % (Auto) 1.8 (0-4) % Baso % (Auto) 0.5 (0-2) % Lymph # (Auto) 1.0 L (1.2-4.9) X10*3/uL Cocke # (Auto) 0.3 (0.1-1.2) X10*3/uL Eos # (Auto) 0.1 (0.0-0.4) X10*3/uL Baso # (Auto) 0.0 (0.0-0.2) X10*3/uL Abs Immat Gran (auto) 0.02 (0.00-0.03) X10*3/uL Absolute Neuts (auto) 2.4 (2.0-8.3) x10*3/uL Absolute Nucleated RBC 0.000 (0.0-0.012) X10*3/uL Nucleated RBC % (auto) 0.0 (0.0-0.2) /100WBC PT 15.5 H (10.9-12.4) SEC INR 1.3 H (0.9-1.1) APTT 36.0 (26.0-36.8) SEC Sodium 140 (135-145) mmol/L Potassium 4.1 D (3.3-5.1) mmol/L Chloride 109 H (96-108) mmol/L Carbon Dioxide 23 (22-29) mmol/L Anion Gap 12 (12-20) BUN 10 (9-16) mg/dL Creatinine 0.80 (0.5-1.4) mg/dL Estim Creat Clear Calc 70.2 Estimated GFR > 60 Random Glucose 104 (60-115) mg/dL Calcium 8.7 (8.4-10.2) mg/dL Total Bilirubin 0.8 (0.0-1.0) mg/dL AST 42 H (5-31) U/L ALT 43 H (0-31) U/L Alkaline Phosphatase 65 (39-117) U/L Troponin I High Sens < 2.7 D (<3.5-17.0) ng/L B-Natriuretic Peptide 325 H (<100) pg/mL Total Protein 7.2 (6.5-8.0) g/dL Albumin 4.3 (3.5-5.0) g/dL Influenza Type A (PCR) NEGATIVE (Negative) Influenza Type B (PCR) NEGATIVE (Negative) RSV RNA Qual (PCR) NEGATIVE (Negative) SARS-CoV-2 RNA (RT-PCR) NEGATIVE (Negative) Independent Interpretation I performed an independent interpretation of an: EKG Interpretation: ekg w/ afib, HR 88 bpm, normla QTC, no ST segment elevations or depressions cxr without pulm edema or infiltrate Radiology Impression Discussion of test interpretation with radiology: I have reviewed the radiologist's reading. External Record Review External record reviewed: Outpatient record, Prior outpatient labs and Prior outpatient radiology Prescription Management I considered prescription management with: Antibiotic and Other (antihypertensive) Chronic Conditions Patient?s care impacted by: Hypertension Critical Care Time Critical Care Time Critical Care Time: No Discharge Plan Discharge Clinical Impression: Bronchitis, Hypertension Patient Disposition: Home, Self-Care Instructions: Acute Bronchitis (ED), DASH Eating Plan (ED) Additional Instructions: your blood pressure was elevated - take your BP meds when you get home and monitor your BP. your chest x-ray did not show any pneumonia you tested negative for covid, flu, rsv your labs were reassuring you most likely have a viral bronchitis take the prescribed prednisone to help with the inflammation in your lungs - start it tomorrow morning take the prescribed cough medication as needed rest and drink plenty of fluids use the inhaler every 4 hours as needed If you develop new or worsening symptoms call 911 or come back to the ER for further evaluation. Prescriptions: New prednisone 20 mg tablet 40 mg PO DAILY Qty: 8 0RF benzonatate 100 mg capsule 100 mg PO TID PRN (Reason: cough) Qty: 20 0RF No Action celecoxib 200 mg capsule 200 mg PO BID Qty: 60 3RF oxybutynin chloride 5 mg tablet 5 mg PO BEDTIME ascorbic acid (vitamin C) [Vitamin C] 500 mg Tablet 500 mg PO DAILY cefuroxime axetil 500 mg tablet 500 mg PO BID 14 Days Qty: 28 0RF methenamine hippurate [Hiprex] 1 gram tablet 1 g PO BID Qty: 60 0RF sertraline 100 mg tablet 100 mg PO DAILY propranolol 20 mg tablet 60 mg PO BID diltiazem HCl 240 mg capsule,extended release 24hr 240 mg PO BEDTIME primidone 250 mg tablet 250 mg PO BEDTIME Eliquis 5 mg tablet 5 mg PO BID Referrals: Hector Kinsey MD [Primary Care Provider] - Stand Alone Forms: Work/School Release Interventions: ED Discharge Assessment Last Done: 09/05/24 15:28 Discharge Date/Time: 09/05/24 15:31 Print Language: Vietnamese
[2024-09-05] MEDS: Albuterol Sulfate 2.5 MG, Albuterol/Iprat 2.5/0.5MG 3 ML 3 ML INHALE (11:58)
[2024-09-05 11:59] LABS: MANUAL DIFF FLAG NO
[2024-09-05 12:00] LABS: Basophils Percent Auto 0.5 % (0-2); Eosinophils Absolute Auto 0.1 X10*3/uL (0.0-0.4); Eosinophils Percent Auto 1.8 % (0-4); Hematocrit 39.7 % (37.0-47.0); Hemoglobin 13.8 g/dl (12.0-16.0); Imm Gran Abs Auto 0.02 X10*3/uL (0.00-0.03); Imm Gran Pct Auto 0.5 % (0.0-0.4); Lymphocytes Percent Auto 25.9 % (20-40); Mean Corpuscular HGB Conc 34.8 g/dl (31.0-35.0); Mean Corpuscular Hemoglobin 32.9 pg (27.0-33.0); Mean Corpuscular Volume 94.5 fL (80.0-98.0); Mean Platelet Volume 10.1 fL (9.4-12.3); Monocytes Absolute Auto 0.3 X10*3/uL (0.1-1.2); Monocytes Percent Auto 7.7 % (2-11); Neutrophils Absolute Auto 2.4 x10*3/uL (2.0-8.3); Neutrophils Percent Auto 63.6 % (45-73); Platelet Count 120 X10*3/uL (160-400); Red Cell Distribution Width 13.2 % (11.0-16.0); White Blood Count 3.8 X10*3/uL (4.8-10.8)
[2024-09-05 12:06] LABS: INTERNATIONAL NORM RATIO 1.3 (0.9-1.1); Prothrombin Time 15.5 SEC (10.9-12.4)
[2024-09-05 12:14] LABS: Alanine Aminotransferase 43 U/L (0-31); Albumin Level 4.3 g/dL (3.5-5.0); Alkaline Phosphatase 65 U/L (39-117); Anion Gap 12 (12-20); Aspartate Amino Transferase 42 U/L (5-31); Bilirubin Total 0.8 mg/dL (0.0-1.0); Blood Urea Nitrogen 10 mg/dL (9-16); Calcium 8.7 mg/dL (8.4-10.2); Carbon Dioxide 23 mmol/L (22-29); Chloride 109 mmol/L (96-108); Creatinine Clr Calc Pharmacy 70.2; Estimated Glomerular Filt Rate > 60; Glucose Random 104 mg/dL (60-115); Potassium 4.1 mmol/L (3.3-5.1); Sodium 140 mmol/L (135-145); Total Protein 7.2 g/dL (6.5-8.0)
[2024-09-05 12:21] LABS: B Type Natriuretic Peptide 325 pg/mL (<100)
[2024-09-05 12:24] LABS: Troponin-I High Sensitivity < 2.7 ng/L (<3.5-17.0)
[2024-09-05 12:47] LABS: Influenza A PCR NEGATIVE (Negative); Influenza B PCR NEGATIVE (Negative); Resp Syncy Virus RNA Qual PCR NEGATIVE (Negative); SARS COV2 PCR INHOUSE NEGATIVE (Negative)
[2024-09-05] MEDS: predniSONE 20 MG TABLET 40 MG PO (13:52)
[2024-09-05] MEDS: Propranolol HCL 20 MG TABLET PO (13:53)
== END 2024-09-05 15:31 | disposition home or self-care (01) ==
PROVIDERS: Physician Assistant; Emergency Provider Emergency Medicine; PCP Family Medicine
DX: J40 Bronchitis, not specified as acute or chronic (principal); R06.02 Shortness of breath; I48.91 Unspecified atrial fibrillation; I10 Essential (primary) hypertension; Z03.818 Encounter for observation for suspected exposure to other biological agents ruled out; Z79.01 Long term (current) use of anticoagulants; Z79.899 Other long term (current) drug therapy
CPT/HCPCS: 0241U; 71045; 80053; 83880; 84484; 85025; 85610; 85730; 93005; 94640; 99284

== ENCOUNTER → 2024-09-05 11:23 | Outpatient (BNV) | payer OTHER, SELFPAY | PROVIDERS: Emergency Provider Emergency Medicine; PCP Family Medicine; Visit Provider Radiology Diagnostic Radiology | DX: J18.9 Pneumonia, unspecified organism (principal) | CPT/HCPCS: 71045 ==

== ENCOUNTER → 2024-09-05 11:23 | Outpatient (BNV) | payer OTHER, SELFPAY | PROVIDERS: Emergency Provider Emergency Medicine; PCP Family Medicine; Visit Provider Internal Medicine | DX: R94.31 Abnormal electrocardiogram [ECG] [EKG] (principal) | CPT/HCPCS: 93010 ==

== ENCOUNTER 2025-01-29 13:31 | Outpatient (REF) | payer OTHER, SELFPAY ==
[2025-01-29 13:49] LABS: MANUAL DIFF FLAG NO
[2025-01-29 14:04] LABS: Basophils Absolute Auto 0.1 X10*3/uL (0.0-0.2); Basophils Percent Auto 1.2 % (0-2); Eosinophils Absolute Auto 0.1 X10*3/uL (0.0-0.4); Eosinophils Percent Auto 1.9 % (0-4); Imm Gran Abs Auto 0.02 X10*3/uL (0.00-0.03); Imm Gran Pct Auto 0.5 % (0.0-0.4); Lymphocytes Percent Auto 23.7 % (20-40); Mean Corpuscular HGB Conc 33.3 g/dl (31.0-35.0); Mean Corpuscular Hemoglobin 30.9 pg (27.0-33.0); Mean Corpuscular Volume 92.7 fL (80.0-98.0); Mean Platelet Volume 10.3 fL (9.4-12.3); Monocytes Absolute Auto 0.3 X10*3/uL (0.1-1.2); Monocytes Percent Auto 7.8 % (2-11); Neutrophils Absolute Auto 2.7 x10*3/uL (2.0-8.3); Neutrophils Percent Auto 64.9 % (45-73); Platelet Count 160 X10*3/uL (160-400); Red Blood Count 4.53 X10*6/uL (4.20-5.50); Red Cell Distribution Width 14.5 % (11.0-16.0); White Blood Count 4.2 X10*3/uL (4.8-10.8)
[2025-01-29 14:14] LABS: Appearance Urine Clear; Color Urine Dark Yellow; Glucose Urine UA Negative (Negative); Leukocyte Esterase Urine Trace (Negative); Nitrite Urine Negative (Negative); PH 5.5 (5.0-9.0); UMIC TRIGGER UACC YES; Urine Blood Negative (Negative); Urine Ketones Trace mg/dL (Negative); Urine Protein Negative (Neg-Trace)
[2025-01-29 14:25] LABS: Alanine Aminotransferase 114 U/L (0-31); Anion Gap 16 (12-20); Aspartate Amino Transferase 125 U/L (5-31); Blood Urea Nitrogen 15 mg/dL (9-16); Carbon Dioxide 25 mmol/L (22-29); Chloride 103 mmol/L (96-108); Estimated Glomerular Filt Rate > 60; Potassium 4.2 mmol/L (3.3-5.1); Sodium 140 mmol/L (135-145)
--- OUTSIDE RECORDS SUMMARY | 2025-01-29 14:41 | XMS_ITS | Clinical Summary ---
Author Organization [facility] Address [address] [place] [address] Care Team Providers Care Mounter Flutes And Piccolos Name Role Phone Unavailable Primary Care Provider Unavailabl e Social History Tobacco Use Types Packs/Day Years Used Date Smoking Tobacco: Never Assessed Comments Unknown Sex and Gender Information Value Date Recorded Sex Assigned at Not on file Legal Sex Female 1:21 AM EST Gender Identity Not on file Sexual Orientation Not on file Plan of Treatment Health Maintenance Due Date Last Done Comments Breast Cancer Screening 1960 DTaP,Tdap,and Td Vaccines (1 - Tdap) 1977 Pneumococcal Vaccine: 50+ Ye ars (1 of 1 - PCV) 2008 Zoster Vaccines (1 of 2) 2008 COVID-19 Vaccine ( - 2023-2 5 season) 2024 Influenza Vaccine (Season Ended) 2025 RSV Immunization Adult Patie nts (1 - 1-dose 75+ series) 2033 HIB Vaccines Aged Out No longer eligi ble based on patient's age to complete this topic HPV Vaccines Aged Out No longer eligi ble based on patient's age to complete this topic Hepatitis A Vaccines Aged Out No long er eligible based on patient's age to complete this topic Hepatitis B Vaccines Aged Out No long er eligible based on patient's age to complete this topic IPV Vaccines Aged Out No longer eligi ble based on patient's age to complete this topic MMR Vaccines Aged Out No longer eligi ble based on patient's age to complete this topic Meningococcal ACWY Vaccine Aged Out N o longer eligible based on patient's age to complete this topic Meningococcal B Vaccine Aged Out No l onger eligible based on patient's age to complete this topic RSV Immunization Patients Un karolina 20 months Aged Out No longer eligible b ased on patient's age to complete this topic Varicella Vaccines Aged Out No longer eligible based on patient's age to complete this topic
[2025-01-29 15:00] LABS: Bacteria Urine 1+ (None Seen); RBC Urine 0-2 /HPF (0-2); WBC Urine 0-5 /HPF (0-5)
== END 2025-01-29 13:32 | disposition home or self-care (01) ==
LOC: HO.LAB 13:31
PROVIDERS: PCP Family Medicine; Visit Provider Family Medicine
DX: I10 Essential (primary) hypertension (principal); K75.81 Nonalcoholic steatohepatitis (NASH); D72.819 Decreased white blood cell count, unspecified
CPT/HCPCS: 36415; 80051; 81001; 82565; 84450; 84460; 84520; 85025; 87086

== ENCOUNTER 2025-05-08 14:04 | Outpatient (AMB) | payer OTHER, SELFPAY ==
--- NOTE | 2025-05-08 14:07 | A.OFFPC_ITS ---
Vital Signs 05/08/25 14:12 Height 5 ft 2 in Weight 83.461 kg BMI 33.7 BP 120/92 H Respiration 14 Pulse 108 H Pulse Source Pulse Oximeter Temp 97.7 F Temp Source Temporal Artery Scan Pulse Oximetry (%) 99 Oxygen Delivery Method Room Air Intake Visit Reasons: 3 MO F/UP - YANIQUE PT Ultrasound Technol Required: No Accompanied by: Self / Same As Patient Allergies latex (LATEX) Allergy (Intermediate, Verified 05/08/25 14:07) RASH meperidine Adverse Reaction (Intermediate, Verified 05/08/25 14:07) VOMITING STOMACH UPSET Medication List - Last Reconciled 05/08/25 by LESIA Kinney albuterol sulfate 90 mcg/actuation 2 puffs inhalation Q4H PRN apixaban (Eliquis) 5 mg PO BID ascorbic acid (vitamin C) (Vitamin C) 500 mg PO DAILY cefuroxime axetil 500 mg PO BID 14 days celecoxib 200 mg PO BID diltiazem HCl CD 240 mg PO BEDTIME methenamine hippurate (Hiprex) 1 g PO BID oxybutynin chloride 5 mg PO BEDTIME primidone 250 mg PO BEDTIME propranolol 40 mg (2 x 20 mg) PO BID sertraline 100 mg PO DAILY sertraline 50 mg PO DAILY Tobacco use date assessed: 05/08/25 Fall risk assessment: No Falls in past year Last assessed Fall Risk: 05/08/25 Dental Screening Dental Screen Date: 05/08/25 Did you have a dental visit in the last 12 months?: Yes Did you have a dental problem in the last 6 months where you did not have access to dental care?: No Was dental information given to patient?: No HPI HPI Comments History of Present Illness Details 64-year-old female with history of essen tial tremor, Tay, major depressive disorder, irritable bowel syndrome, GERD, hypertension, atrial fibrillation, urge incontinence presents to the office today for management of chronic conditions and to establish care. Atrial fibrillation- s/p cardiac ablation 2012. Had been following with [facility] cardiology, but has been discharged unless needed. Continues on Eliquis 5 mg twice daily, diltiazem 240 mg CD, and propranolol. Of note, she is unsure if she took her diltiazem and propranolol this morning but did take her Eliquis Essential tremor-transferring to Dr. Edwards in Neurology at [place]. Continues with tremors despite propranolol and primidone. She is reporting some lightheadedness associated with the propranolol Urge incontinence-not following with Urology. Managed with oxybutynin and methenamine Major depressive disorder/anxiety-does not feel this is controlled. Reports having constant generalized anxiety but denies any panic attacks. No SI/HI. Previously following with therapist but they retired Osteoarthritis-on Celebrex Concerns: None other than above Health maintenance: Last screening mammogram 01/2023, overdue Last bone density Last colonoscopy ROS: General: No fevers, malaise, unintentional weight loss HEENT: No blurred vision, diplopia. No sore throat, nasal congestion, rhinorrhea, sinus pain, ear pain Cardiovascular: No chest pain, palpitations, or leg edema Respiratory: No shortness of breath, wheezing, cough GI: No abdominal pain, nausea, vomiting, diarrhea, constipation, melena, hematochezia : No dysuria, hematuria, increased urinary frequency, decreased urinary output MSK: No myalgia, back pain Neuro: No headaches, weakness, paresthesias Skin: No rashes or lesions EXAM: Constitutional - Awake and Alert, No apparent distress Eyes - PERRL Cardiovascular - S1S2, irregularly irregular, RVR, No edema Respiratory - Normal lung expansion, Normal respiratory effort, No respiratory distress, CTA bilaterally Extremities - no calf tenderness bilaterally, no swelling Skin - Warm/Dry Neurological - Alert & oriented x3 Psychological - Appropriate affect [facility] Medical History (Updated 05/08/25 @ 15:04 by LESIA Kinney) Atrial fibrillation GERD (gastroesophageal reflux disease) Mood disorder Tremor Afib Social History Household Members: Spouse Housing: House Do you presently have visiting nurse or other home services: No Patient Tobacco Use Status: Never used Tobacco e-Cigarette/Vaping Use: Never Used Second Hand Smoke Exposure: No service: No Current occupational status: employed 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 Cognitive needs: No Hearing needs: No Vision needs: No Questionnaire Thrive Questionnaire Date Thrive assessed: 12/13/23 Physical exam (Primary Care) Vital Signs: Last Vital Signs Temp 97.7 F 05/08/25 14:12 Pulse 108 H 05/08/25 14:12 Resp 14 05/08/25 14:12 BP 120/92 H 05/08/25 14:12 Pulse Ox 99 05/08/25 14:12 Oxygen Delivery Method Room Air 05/08/25 14:12 BMI result Body Mass Index 33.7 Tobacco/Smoking Status: Tobacco use Status Tobacco use date assessed 05/08/25 05/08/25 14:14 Patient Tobacco Use Status Never used Tobacco 05/08/25 14:14 e-Cigarette/Vaping Use Never Used 05/08/25 14:14 Thrive Assessment: Date of Thrive Assessment Date Thrive assessed 12/13/23 05/08/25 14:14 Office Procedures EKG Details: Atrial fibrillation with RVR, rate 113. No ST/T-wave abnormalities. [id number], Complete Coding Level of Care Code New Pt Level 5 (72917) Complex EM visit Add On G2211 Diagnoses Atrial fibrillation with RVR I48.91 Mood disorder F39 GERD (gastroesophageal reflux disease) K21.9 Tremor R25.1 CPT Codes EKG - CPT: 39718-[id number], Complete ([id number]) Assessment & Plan Assessment & Plan (1) Atrial fibrillation with RVR: Code(s): I48.91 - Unspecified atrial fibrillation Category: Medical Plan: w/ RVR, HR 110-129. Attempting valsalva without success. Discussed risks on RVR which could potentially result in CHC, CVA, arrest though she is asymptomatic and is agreeable to going to [facility] ED. Expect call placed to triage provider. (2) Mood disorder: Code(s): F39 - Unspecified mood [affective] disorder Category: Medical Plan: Anxiety uncontrolled. Increase sertraline to 150 mg daily. (3) GERD (gastroesophageal reflux disease): Code(s): K21.9 - Gastro-esophageal reflux disease without esophagitis Category: Medical Plan: Stable. (4) Tremor: Comment: Patient states non essential Code(s): R25.1 - Tremor, unspecified Category: Medical Plan: Continue following with Neurology. Will decrease propranolol to 40 mg b.i.d. due to lightheadedness. Plan Follow-up in the office after ED/hospital discharge. Orders: Orders AMB EKG-In Office Today I48.91 - Unspecified atrial fibrillation, R25.1 - Tremor, unspecified Medications: New sertraline Take 1/2 daily with 100mg to make 125mg x1 week, then take 1 tab daily with 100mg tab to make 150mg daily 50 mg PO DAILY 90 tabs 0RF propranolol 40 mg (2 x 20 mg) PO BID 180 tabs 0RF
[2025-05-08 14:12] VITALS: BP 120/92; PULSE 108; RESP 14; TEMP 36.5; O2SAT 99; BMI 33.7
--- OUTSIDE RECORDS SUMMARY | 2025-05-08 16:42 | XMS_ITS | Patient Health Record ---
Author Organization [facility] Address [address] [place] [id number] Care Team Providers Care Federal Judge Name Role Phone Tio (RETIRED) Hector STEVENS Primary Care Provider Unavailable Cornelio Sahni Unavailable [phone] Allergies Allergen (clinical drug ingredient) Drug/Non Drug Allergy documented on EMR Reaction Allergy Type Onset Date Status meperidine Demerol Unknown Drug Allergy Active Latex latex (uncoded) Unknown Allergy Acti ve Reason For Referral No Information Medications Medication SIG (Take, Route, Frequency, Duration) Notes Start Date End Date Status Gabapentin 300 MG 1 capsule Orally Thr ee times a day/as needed Active dilTIAZem HCl 120 MG 1 tablet before timothy ls Orally daily Active Sertraline HCl 100 MG 1 tablet Orally Once a day Active coumadin - 1 tab Oral as directed Active Aspirin Adult Low Dose 81 MG 1 tablet Orally Once a day for 30 day(s) Active Omeprazole 20 MG TAKE 1 CAPSULE BY [facility] EVERY DAY for 90 Active Primidone 100 1 tablet Orally at night Active LORazepam 0.5 MG 1 tablet as needed O rally Once a day Active Albuterol Sulfate HFA 108 (90 Base) MCG/ACT 2 puffs as needed Inhalation every 6 hrs/as directed Active Immunizations Vaccine Route Administration Date Status Comme nts Influenza Unknown 09/08/2018 Refused Social History Alcohol Screen Question Answer Notes Did you have a drink contain ing alcohol in the past year? Yes How often did you have a dri nk containing alcohol in the past year? 2 to 4 times a month (2 points) How many drinks did you have on a typical day when you were drinking in the past year? 1 or 2 drinks (0 point) How often did you have 6 or more drinks on one occasion in the past year? Never (0 point) Points 2 Interpretation Negative Section Notes: She does not smoke, nor use sig. amounts of alcohol She does not smoke; no sig EtOH 1 glass of milk per day She does not smoke; no sig EtOH 1 glass of milk per day Problems Problem Type SNOMED Code ICD Code Onset Dates Problem Status W/U Status Risk Notes Problem Screening for malignant neoplasm of colon (213610213) Encounter for screening for malignant neoplasm of colon (Z12.11) Active confirmed Problem 402373426 History of adenomatous polyp of colon (Z86.010) Active confirmed Problem 646401922 Abdominal bloati ng (R14.0) Active confirmed Problem 168930301 Gastroesophageal reflux disease, esophagitis presence not specified (K21.9) Active confirmed Problem 40901434 Constipation, unspecified constipation type (K59.00) Active confirmed Problem 998385611 Irritable bowel syndrome with constipation (K58.1) Active confirmed Plan Of Treatment Future Test Test Name Order Date UPPER GI ENDOSCOPY 07/31/2011 UPPER GI ENDOSCOPY 09/08/2018 COLONOSCOPY 09/08/2018 Insurance Providers Payer Name Payer Address Payer Phone Subscriber Number Group Number Insured Name Patient Relationship to Insured Coverage Start Date Coverage End Date [facility] [address] [place] [address] [id number] ALEC GREGORY Self - patient is the insured Medical (General) History Medical History History ICD Code Afib GERD--EGD in 2010 with a all --no esophagitis--mild gastritis--bx neg for H.pylori; upper endoscopy in September of 2018 revealed a moderate-sized hiatal hernia, mild gastritis, and mild reflux esophagitis--biopsies were negative for H. pylori and negative for Bliss's esophagus; duodenal biopsies were also negative for celiac disease. Migraines Depression Denies OK,DM,CVA,Lung disease,renal dise ase Fatty liver--neg w/u in the past Tubular adenomas removed wit h colonoscopy in [address] Pardo; screening colonoscopy in September of 2018 revealed 3 small tubular adenomas that were removed, as well as diverticulosis Mild asthma Hyperparathyroidism--meeting with a surgeon in the spring to discuss parathyroidectomy Surgical History Surgery Date(Month/Year) Sigmoid resection for diverticulitis [facility] Hysterectomy and removal of 1 ovary Breast reduction surgery Vein ligation Hernia Knee replacements---bilateral 2017
--- OUTSIDE RECORDS SUMMARY | 2025-05-08 16:42 | XMS_ITS | Clinical Summary ---
Author Organization [facility] ity Address [address] [place] [address] Care Team Providers Care Collar Baster Name Role Phone Unavailable Primary Care Provider [...] 2008 Zoster Vaccines (1 of 2) 2008 Depression Screening 08/30/2024 COVID-19 Vaccine (1 - 2023-2 5 season) 2025 Influenza Vaccine (#1) 2025 RSV Immunization Adult Patie nts (1 [...]
== END 2025-05-08 15:23 | disposition home or self-care (01) ==
LOC: HO.HMCHD 14:04
PROVIDERS: PCP Family Medicine; Visit Provider Physician Assistant
DX: I48.91 Unspecified atrial fibrillation (principal); F39 Unspecified mood [affective] disorder; K21.9 Gastro-esophageal reflux disease without esophagitis; R25.1 Tremor, unspecified

== ENCOUNTER 2025-05-08 15:19 | Emergency (ER) | payer OTHER, SELFPAY ==
[2025-05-08] VITALS (7 sets, daily range): BP systolic 139–159; BP diastolic 78–107; PULSE 101–114; RESP 15–18; TEMP 36.7–37.1; O2SAT 97–100; BMI 33.4
--- NOTE | 2025-05-08 15:22 | ECG_ITS ---
Test Reason : A-FIB Blood Pressure : */* mmHG Vent. Rate : 107 BPM Atrial Rate : * BPM P-R Int : * ms QRS Dur : 88 ms QT Int : 304 ms P-R-T Axes : * 9 20 degrees QTcB Int : 405 ms Atrial fibrillation with rapid ventricular response Abnormal ECG When compared with ECG of 05-Sep-2024 11:46, QT has shortened Referred By: Nicolasa Tee Electronically Signed By: NICKOLAS MORAN MD
--- NOTE | 2025-05-08 15:39 | ED.GENADULT ---
HPI - General Adult General Chief complaint: Arrhythmia/Palpitations Stated complaint: AFIB Time Seen by Provider: 05/08/25 15:51 History of Present Illness ED Provider: Mike Garcia MD HPI narrative: 64-year-old female presents for evaluation after she is found to be in AFib RVR at a routine PCP visit the patient has known persistent AFib she is on propranolol on apixaban but missed a dose she discovered this later after speaking to her see below. No chest pain difficulty breathing leg swelling cough hemoptysis fever or chills Related Data Home Medications ?Medication ?Instructions ?Recorded ?Confirmed apixaban 5 mg tablet (Eliquis) 5 mg PO BID 11/19/22 05/08/25 diltiazem HCl 240 mg 240 mg PO BEDTIME 11/19/22 05/08/25 capsule,extended release 24 hr primidone 250 mg tablet 250 mg PO BEDTIME 11/19/22 05/08/25 sertraline 100 mg tablet 100 mg PO DAILY 11/19/22 05/08/25 ascorbic acid (vitamin C) 500 mg 500 mg PO DAILY 12/13/23 05/08/25 tablet (Vitamin C) oxybutynin chloride 5 mg tablet 5 mg PO BEDTIME 12/13/23 05/08/25 albuterol sulfate 90 mcg/actuation 2 puff inhalation Q4H PRN 05/08/25 05/08/25 aerosol inhaler Previous Rx's ?Medication ?Instructions ?Recorded cefuroxime axetil 500 mg tablet 500 mg PO BID 14 days #28 tabs 12/17/23 methenamine hippurate 1 gram 1 g PO BID #60 tabs 12/17/23 tablet (Hiprex) celecoxib 200 mg capsule 200 mg PO BID #60 caps 02/27/25 lorazepam 1 mg tablet 1 mg PO DAILY PRN anxiety #30 tabs 05/08/25 metoprolol tartrate 25 mg tablet 25 mg PO BID #60 tabs 05/08/25 propranolol 20 mg tablet 40 mg (2 x 20 mg) PO BID #180 tabs 05/08/25 sertraline 50 mg tablet 50 mg PO DAILY #90 tabs 05/08/25 Allergies Allergy/AdvReac Type Severity Reaction Status Date / Time latex (LATEX) Allergy Intermediate RASH Verified 05/08/25 15:41 meperidine AdvReac Intermediate VOMITING Verified 05/08/25 15:41 STOMACH UPSET PMFSH Past Medical History Medical History (Updated 05/08/25 @ 17:09 by Mike Garcia MD) Atrial fibrillation GERD (gastroesophageal reflux disease) Mood disorder Tremor Afib Social History Social History Household Members: Spouse Housing: House Do you presently have visiting nurse or other home services: No Alcohol intake: current Alcohol intake frequency: holidays/special occasions only Patient Tobacco Use Status: Never used Tobacco Smoked in Last 30 Days: No e-Cigarette/Vaping Use: Never Used Second Hand Smoke Exposure: No Use of substances other than those prescribed or required for medical reasons: No Advance Directives: No Advance Directives Information Provided: No service: No Current occupational status: employed 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 Head: Atraumatic Eyes: Anicteric, Normal conjunctiva. ENT: Moist mucosa, no pallor. ? Neck: Supple. Skin: ?No observable rash or bruising on exposed or examined skin Respiratory: Breathing comfortably, No distress.Clear to auscultation bilaterally, symmetric chest expansion, No wheeze, rales, ronchi. Cardiovascular: Rapid and irregularly irregular No murmurs or rub. Well perfused periphery, warm extremities. No edema. ? Abdominal: No focal tenderness. Soft, no objective distension. No palpable masses or obvious organomegaly. ?No guarding, no rebound tenderness or other peritoneal findings. : No flank tenderness. Neuro: Alert. Gross movement of all extremities intact. ? Psych: Calm. Cooperative. MSK: No grossly visible deformity. Vital signs: See flowsheet Vital Signs: Vital Signs - 24 hr 05/08/25 15:38 05/08/25 15:52 05/08/25 16:27 Temperature 98.0 F 98.2 F Pulse Rate 114 H 102 H 101 H Respiratory Rate 18 18 Blood Pressure 154/107 H 145/99 H 142/85 H Pulse Oximetry 98 100 Oxygen Delivery Method Room Air Room Air 05/08/25 16:28 05/08/25 17:17 05/08/25 18:41 Temperature 98.2 F 98.3 F 98.8 F Pulse Rate 106 H 103 H 101 H Respiratory Rate 15 15 15 Blood Pressure 139/78 151/98 H 159/96 H Pulse Oximetry 97 97 98 Oxygen Delivery Method Room Air Room Air Room Air 05/08/25 19:19 Temperature 98.8 F Pulse Rate 101 H Respiratory Rate 15 Blood Pressure 159/96 H Pulse Oximetry 98 Oxygen Delivery Method Room Air BMI result Body Mass Index 33.4 Course Course Course Narrative: This is an RME: Additional HPI, ROS, PE not included below will be deferred to primary provider. RME assessment and note performed by: Nicolasa Tee PA-C This is a 25-sbxf-sxf-female, with a hx of a fib on diltiazem, propanolol and eliquis, who presents to the ER with concerns of dizziness. Coming from where she was found to be in afib with RVR. Hx of afib with ablation in 2012. She is unsure if she took her meds this morning. Plan: Labs, EKG, further ER eval needed Medications Administered Discontinued Medications Generic Name Dose Route Start Last Admin Trade Name Freq PRN Reason Stop Dose Admin Metoprolol Tartrate 25 mg 05/08/25 15:52 05/08/25 16:27 Metoprolol Tartrate 25 Mg Tablet PO 05/08/25 15:53 25 mg ONCE ONE Administration Protocol Metoprolol Tartrate 5 mg 05/08/25 16:00 05/08/25 16:27 Metoprolol Tartrate 5 Mg/5 Ml Vial IVPUSH 05/08/25 16:01 5 mg ONCE ONE Administration Metoprolol Tartrate 12.5 mg 05/08/25 18:34 05/08/25 19:15 Metoprolol Tartrate 12.5 Mg Halftab PO 05/08/25 18:35 12.5 mg ONCE ONE Administration Protocol Medical Decision Making Medical Decision Making MDM Narrative: Medical Decision Making: [age] with known and chronic persistent atrial fibrillation on longstanding propranolol apixaban among other medications with AFib with a rapid ventricular response in the office during a routine clinical visit with PCP today. No chest pain difficulty breathing looks well. On arrival here she is in the 105-115 range she looks well is comfortable she did remember while she was in the ED after texting with her that she forgot to take her meds this morning this is likely beta-josh missed dose etiology of her AFib with RVR. She has no significant symptoms or discomfort at this time we will attempt to rate control and discharged home. Repeat heart rate at 630 p.m. 98 patient comfortable with discharge home Preliminary Favored Differential Diagnosis: AFib with RVR, dehydration, medication nonadherence, thyroid disorder, electrolyte derangement among additional considered etiologies Testing Interpreted Independently: ECG AFib with RVR Radiology or Lab testing Results Reviewed: ?See below for details Consults: ?See below for details Independent Historians/External Chart Reviews: ?See below for details Social Determinants of Health Impacting MDM/Planning: ?See below for details Admission/Observation Consideration of admission/observation: Escalation of care including admission/observation considered Lab Data MDM Lab Attestation statement: I reviewed the patient's lab results. 05/08/25 15:51 05/08/25 15:51 Labs: Lab Results 05/08/25 Range/Units 15:51 WBC 4.0 L (4.8-10.8) X10*3/uL RBC 4.05 L (4.20-5.50) X10*6/uL Hgb 13.4 (12.0-16.0) g/dl Hct 39.2 (37.0-47.0) % MCV 96.8 (80.0-98.0) fL MCH 33.1 H (27.0-33.0) pg MCHC 34.2 (31.0-35.0) g/dl RDW 13.4 (11.0-16.0) % Plt Count 126 L (160-400) X10*3/uL MPV 9.8 (9.4-12.3) fL Immature Gran % (Auto) 0.3 (0.0-0.4) % Neut % (Auto) 73.9 H (45-73) % Lymph % (Auto) 15.7 L (20-40) % [place] % (Auto) 8.3 (2-11) % Eos % (Auto) 1.0 (0-4) % Baso % (Auto) 0.8 (0-2) % Lymph # (Auto) 0.6 L (1.2-4.9) X10*3/uL [place] # (Auto) 0.3 (0.1-1.2) X10*3/uL Eos # (Auto) 0.0 (0.0-0.4) X10*3/uL Baso # (Auto) 0.0 (0.0-0.2) X10*3/uL Abs Immat Gran (auto) 0.01 (0.00-0.03) X10*3/uL Absolute Neuts (auto) 2.9 (2.0-8.3) x10*3/uL Absolute Nucleated RBC 0.000 (0.0-0.012) X10*3/uL Nucleated RBC % (auto) 0.0 (0.0-0.2) /100WBC PT 14.1 H (10.9-12.4) SEC INR 1.2 H (0.9-1.1) APTT 33.5 (26.7-34.1) SEC Sodium 141 (135-145) mmol/L Potassium 4.6 (3.3-5.1) mmol/L Chloride 105 (96-108) mmol/L Carbon Dioxide 26 (22-29) mmol/L Anion Gap 15 (12-20) BUN 14 (9-16) mg/dL Creatinine 0.89 (0.5-1.4) mg/dL Estim Creat Clear Calc 62.1 Estimated GFR > 60 Random Glucose 94 (60-115) mg/dL Calcium 9.0 (8.4-10.2) mg/dL Magnesium 1.8 (1.6-2.6) mg/dL Total Bilirubin 1.0 (0.0-1.0) mg/dL Direct Bilirubin 0.3 (0.0-0.5) mg/dL AST 68 H (5-31) U/L ALT 63 H (0-31) U/L Alkaline Phosphatase 71 (39-117) U/L Troponin I High Sens < 2.7 (<3.5-17.0) ng/L Total Protein 7.5 (6.5-8.0) g/dL Albumin 4.8 (3.5-5.0) g/dL TSH 2.24 (0.32-4.0) uIU/mL Independent Interpretation I performed an independent interpretation of an: EKG (AFib with RVR no acute ischemic changes) Critical Care Time Critical Care Time Critical Care Time: Yes Total Critical Care Time: 30 Attestation: ED Critical Care: Authorized and Performed by: Mike Garcia MD Total critical care time: Approximately 30 Due to a high probability of clinically significant, life threatening deterioration, the patient required my highest level of preparedness to intervene emergently and I personally spent this critical care time directly and personally managing the patient. This critical care time included obtaining a history; examining the patient; pulse oximetry; ordering and review of studies; arranging urgent treatment with development of a management plan; evaluation of patient's response to treatment; frequent reassessment; and, discussions with other providers. This critical care time was performed to assess and manage the high probability of imminent, life-threatening deterioration that could result in multi-organ failure. It was exclusive of separately billable procedures and treating other patients and teaching time. Discharge Plan Discharge Clinical Impression: Atrial fibrillation with RVR Patient Disposition: Home, Self-Care Instructions: Nabil (Atrial Fibrillation) (ED) Additional Instructions: DISCHARGE DIAGNOSES: Atrial fibrillation with rapid rate in the emergency department, chronic and resolved no significant symptoms or derangement of labs HISTORY OF PRESENTATION: Rapid AFib in the office EMERGENCY DEPARTMENT COURSE,TESTS, TREATMENTS: While in the ED today lab work was reassuring including a negative cardiac enzyme or heart attack test, reassuring electrolytes and thyroid testing. You did have slightly elevated liver enzymes AST and ALT but these are improved from previous you may want your PCP to follow these up as an outpatient DISCHARGE MEDICATIONS: Stop propranolol and start taking twice daily metoprolol that we have prescribed FOLLOW-UP: ?Call your primary or general physician soon as possible to discuss your symptoms, your ED visit and to discuss follow up plans PCP INSTRUCTIONS ?& RETURN PRECAUTIONS: If any symptoms change first call your primary physician, if it is after-hours your primary doctors office should have a provider legal entity controller you can speak with. If the symptoms are severe or very concerning to you then call 911 or return to the ED. Continue your regular medications as prescribed I have made no changes to these. Call your primary doctor for follow up you may need referral to Cardiology for medication changes Mike Garcia MD Emergency Physician [facility] Prescriptions: New metoprolol tartrate 25 mg tablet 25 mg PO BID Qty: 60 0RF No Action celecoxib 200 mg capsule 200 mg PO BID Qty: 60 3RF oxybutynin chloride 5 mg tablet 5 mg PO BEDTIME ascorbic acid (vitamin C) [Vitamin C] 500 mg Tablet 500 mg PO DAILY cefuroxime axetil 500 mg tablet 500 mg PO BID 14 Days Qty: 28 0RF methenamine hippurate [Hiprex] 1 gram tablet 1 g PO BID Qty: 60 0RF sertraline 100 mg tablet 100 mg PO DAILY diltiazem HCl 240 mg capsule,extended release 24hr 240 mg PO BEDTIME primidone 250 mg tablet 250 mg PO BEDTIME Eliquis 5 mg tablet 5 mg PO BID albuterol sulfate 90 mcg/actuation HFA aerosol inhaler 2 puff inhalation Q4H PRN propranolol 20 mg tablet 40 mg PO BID Qty: 180 0RF sertraline 50 mg tablet 50 mg PO DAILY Qty: 90 0RF Rx Instructions: Take 1/2 daily with 100mg to make 125mg x1 week, then take 1 tab daily with 100mg tab to make 150mg daily lorazepam 1 mg tablet 1 mg PO DAILY PRN (Reason: anxiety) Qty: 30 0RF Interventions: ED Discharge Assessment Last Done: 05/08/25 19:19 Discharge Date/Time: 05/08/25 19:20 Print Language: Greek
[2025-05-08 15:54] LABS: MANUAL DIFF FLAG NO
[2025-05-08 15:56] LABS: Hematocrit 39.2 % (37.0-47.0); Hemoglobin 13.4 g/dl (12.0-16.0); Imm Gran Abs Auto 0.01 X10*3/uL (0.00-0.03); Imm Gran Pct Auto 0.3 % (0.0-0.4); Lymphocytes Absolute Auto 0.6 X10*3/uL (1.2-4.9); Mean Corpuscular HGB Conc 34.2 g/dl (31.0-35.0); Mean Corpuscular Hemoglobin 33.1 pg (27.0-33.0); Mean Corpuscular Volume 96.8 fL (80.0-98.0); NRBC Abs Auto 0.000 X10*3/uL (0.0-0.012); NRBC Pct Auto 0.0 /100WBC (0.0-0.2); Platelet Count 126 X10*3/uL (160-400); Red Blood Count 4.05 X10*6/uL (4.20-5.50); White Blood Count 4.0 X10*3/uL (4.8-10.8)
[2025-05-08 16:02] LABS: INTERNATIONAL NORM RATIO 1.2 (0.9-1.1); Prothrombin Time 14.1 SEC (10.9-12.4)
[2025-05-08 16:04] LABS: Partial Thromboplastin Time 33.5 SEC (26.7-34.1)
[2025-05-08 16:15] LABS: Alanine Aminotransferase 63 U/L (0-31); Albumin Level 4.8 g/dL (3.5-5.0); Alkaline Phosphatase 71 U/L (39-117); Anion Gap 15 (12-20); Aspartate Amino Transferase 68 U/L (5-31); Blood Urea Nitrogen 14 mg/dL (9-16); Calcium 9.0 mg/dL (8.4-10.2); Carbon Dioxide 26 mmol/L (22-29); Chloride 105 mmol/L (96-108); Creatinine Clr Calc Pharmacy 62.1; Estimated Glomerular Filt Rate > 60; Magnesium 1.8 mg/dL (1.6-2.6); Potassium 4.6 mmol/L (3.3-5.1); Sodium 141 mmol/L (135-145); Total Protein 7.5 g/dL (6.5-8.0)
[2025-05-08 16:24] LABS: Troponin-I High Sensitivity < 2.7 ng/L (<3.5-17.0)
--- NOTE | 2025-05-08 17:00 | PC.NURSE ---
a&ox4. vss and up to date aside from being afib on the monitor w/ a HR between 110-120 bpm. pt presents to the ED after being at her PCP where she originally complained of intermittent dizziness for some time. pt reports that when they did an EKG< it showed that she was in afib w/ RVR. pt completely asymptomatic - denies any chest pain/palpitations/dizziness/lightheadedness. pt reports hx of afib - compliant w/ medication but thinks she may have forgot this morning. pt reports speaking w/ and he confirmed she forgot to take medication this morning. 18gIV placed in the right AC - labs obtained/sent to lab. medication administered per provider order. effectiveness pending. pt otherwise on RA w/o difficulty. no sob/wob noted. respirations even/unlabored. plan of care ongoing. call garibya placed within reach.
[2025-05-08 17:04] LABS: Thyroid Stimulating Hormone 2.24 uIU/mL (0.32-4.0)
--- NOTE | 2025-05-08 17:58 | PC.NURSE ---
pt remains asymptomatic at this time. denies any chest pain/palpitations/dizziness/sob. pt remains in afib w/ HR of 100-110bpm. all other vss. on RA w/o difficulty. plan of care ongoing. call garibay placed within reach.
[2025-05-08] MEDS: Metoprolol Tartrate 12.5 MG HALFTAB PO (19:15)
--- NOTE | 2025-05-08 19:15 | PC.NURSE ---
Pt verbalized intent to start metoprolol at home tomorrow. IV DC'd. Pt denies symptoms, pain. DC instructions given. 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 Pt ambulating to the entrance independently. Family to give her a ride home.
== END 2025-05-08 19:20 | disposition home or self-care (01) ==
PROVIDERS: Physician Assistant Medical; Emergency Provider Emergency Medicine; PCP Physician Assistant
DX: I48.20 Chronic atrial fibrillation, unspecified (principal); I49.9 Cardiac arrhythmia, unspecified; Z79.899 Other long term (current) drug therapy; Z79.01 Long term (current) use of anticoagulants
CPT/HCPCS: 36415; 80048; 80076; 83735; 84443; 84484; 85025; 85610; 85730; 93005; 99284; 99285; J0616

== ENCOUNTER → 2025-05-08 15:22 | Outpatient (BNV) | payer OTHER, SELFPAY | PROVIDERS: Emergency Provider Emergency Medicine; PCP Physician Assistant; Visit Provider Internal Medicine Cardiovascular Disease | DX: I48.91 Unspecified atrial fibrillation (principal) | CPT/HCPCS: 93010 ==

== ENCOUNTER 2025-05-18 13:48 | Outpatient (AMB) | payer OTHER, SELFPAY ==
--- NOTE | 2025-05-18 13:51 | MHC.PC.OV ---
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 Third Step Required: No Accompanied by: self Allergies latex (LATEX) Allergy (Intermediate, Verified 05/18/25 13:52) RASH meperidine Adverse Reaction (Intermediate, Verified 05/18/25 13:52) VOMITING STOMACH UPSET Medication List - Last Reconciled 05/18/25 by LESIA Kinney albuterol sulfate 90 mcg/actuation 2 puffs inhalation Q4H PRN apixaban (Eliquis) 5 mg PO BID 90 days ascorbic acid (vitamin C) (Vitamin C) 500 mg PO DAILY cefuroxime axetil 500 mg PO BID 14 days celecoxib 200 mg PO BID diltiazem HCl CD 240 mg PO BEDTIME lorazepam 1 mg PO DAILY PRN methenamine hippurate (Hiprex) 1 g PO BID metoprolol tartrate 25 mg PO BID oxybutynin chloride 5 mg PO BEDTIME primidone 250 mg PO BEDTIME 90 days sertraline 100 mg PO DAILY sertraline 50 mg PO DAILY Tobacco use date assessed: 05/08/25 Dental Screening Dental Screen Date: 05/08/25 HPI HPI Comments History of Present Illness Details 64-year-old female with history of essential tremor, Tay, major depressive disorder, irritable bowel syndrome, GERD, hypertension, atrial fibrillation, urge incontinence presents to the office today for management of chronic conditions and to establish care. Atrial fibrillation- s/p cardiac ablation 2012. Had been following with [facility] cardiology. At last visit, was noted to be in AFib with RVR. There was a question of whether she would remember to take her rate control medications. She was monitored and sent home, did requires single dose of IV Lopressor. Continues on Eliquis 5 mg twice daily, diltiazem 240 mg CD. While in the ER, provider did discontinue propranolol and changed to metoprolol. Asymptomatic Essential tremor-transferring to Dr. Edwards in Neurology at [place]. Continues with tremors on primidone, though are improved with the medication. She is no longer on propranolol. Urge incontinence-not following with Urology. Managed with oxybutynin and methenamine Major depressive disorder/anxiety-does not feel this is controlled. Reports having constant generalized anxiety but denies any panic attacks. No SI/HI. Previously following with therapist but they retired Osteoarthritis-on Celebrex Concerns: None other than above ROS: General: No fevers, malaise, unintentional weight loss HEENT: No blurred vision, diplopia. No sore throat, nasal congestion, rhinorrhea, sinus pain, ear pain Cardiovascular: No chest pain, palpitations, or leg edema Respiratory: No shortness of breath, wheezing, cough GI: No abdominal pain, nausea, vomiting, diarrhea, constipation, melena, hematochezia : No dysuria, hematuria, increased urinary frequency, decreased urinary output MSK: No myalgia, back pain Neuro: No headaches, weakness, paresthesias Skin: No rashes or lesions EXAM: Constitutional - Awake and Alert, No apparent distress Eyes - PERRL Cardiovascular - S1S2, irregularly irregular, RVR, No edema Respiratory - Normal lung expansion, Normal respiratory effort, No respiratory distress, CTA bilaterally Extremities - no calf tenderness bilaterally, no swelling Skin - Warm/Dry Neurological - Alert & oriented x3 Psychological - Appropriate affect PFSH Medical History (Updated 05/08/25 @ 17:09 by Mike Garcia MD) Atrial fibrillation GERD (gastroesophageal reflux disease) Mood disorder Tremor Afib Social History Household Members: Spouse Housing: House Do you presently have visiting nurse or other home services: No Alcohol intake: current Alcohol intake frequency: holidays/special occasions only Patient Tobacco Use Status: Never used Tobacco e-Cigarette/Vaping Use: Never Used Second Hand Smoke Exposure: No service: No Current occupational status: employed 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 Cognitive needs: No Hearing needs: No Vision needs: No Questionnaire Thrive Questionnaire Date Thrive assessed: 12/13/23 Physical exam (Primary Care) Tobacco/Smoking Status: Tobacco use Status Tobacco use date assessed 05/08/25 05/08/25 14:14 Patient Tobacco Use Status Never used Tobacco 05/08/25 14:14 e-Cigarette/Vaping Use Never Used 05/08/25 14:14 Thrive Assessment: Date of Thrive Assessment Date Thrive assessed 12/13/23 05/08/25 14:14 Coding Level of Care Code Est Pt Level 4 (71536) Complex EM visit Add On G2211 Diagnoses Atrial fibrillation I48.91 Mood disorder F39 Tremor R25.1 GERD (gastroesophageal reflux disease) K21.9 Assessment & Plan Assessment & Plan (1) Atrial fibrillation: Code(s): I48.91 - Unspecified atrial fibrillation Category: Medical Plan: Advised to schedule a [facility] cardiology appointment, referral replaced, given history of cardiac ablation and she is now in atrial fibrillation again. Continue Eliquis 5 mg twice daily. Continue metoprolol and diltiazem (2) Mood disorder: Code(s): F39 - Unspecified mood [affective] disorder Category: Medical Plan: Continue with increased dose of sertraline (3) Tremor: Comment: Patient states non essential Code(s): R25.1 - Tremor, unspecified Category: Medical Plan: Propranolol discontinued. Continue primidone. Upcoming appointment with Neurology (4) GERD (gastroesophageal reflux disease): Code(s): K21.9 - Gastro-esophageal reflux disease without esophagitis Category: Medical Plan: Stable. Continue avoidance of triggering food items Plan Follow-up in the office in 3 months. Reviewed labs from the ER along with ER note Orders: Referrals Cardiology Referral I48.91 - Unspecified atrial fibrillation Medications: New primidone 250 mg PO BEDTIME 90 tabs 1RF Discontinued primidone Discontinued Reason: Doctor's Order 250 mg PO BEDTIME 90 days 90 tabs 1RF
[2025-05-18 13:56] VITALS: BP 120/92; PULSE 97; RESP 16; TEMP 36.1; O2SAT 99; BMI 33.5
--- OUTSIDE RECORDS SUMMARY | 2025-05-18 13:56 | XMS_ITS | Clinical Summary ---
Author Organization [facility] ity Address [address] [place] [address] Care Team Providers Care Radiology Transcriptionist Name Role Phone Unavailable Primary Care Provider [...]
[2025-05-18 14:06] VITALS: BP 110/68
== END 2025-05-18 14:12 | disposition home or self-care (01) ==
LOC: HO.HMCHD 13:48
PROVIDERS: PCP Family Medicine; Visit Provider Physician Assistant
DX: I48.91 Unspecified atrial fibrillation (principal); F39 Unspecified mood [affective] disorder; R25.1 Tremor, unspecified; K21.9 Gastro-esophageal reflux disease without esophagitis

== ENCOUNTER 2025-07-25 13:55 | Outpatient (REF) | payer OTHER, SELFPAY ==
--- OUTSIDE RECORDS SUMMARY | 2025-07-24 08:30 | XMS_ITS | Encounter Summary ---
Author Organization [facility] Address [address] [place] [address] Care Team Providers Care [employer] Name Role Phone Monique Bell PA-C Primary Care Provider [phone] Reason for Visit * Reason Comments Nasal Congestion Encounter Details Date Type Department Care Team ([facility] st Contact Info) Description 07/24/2025 8:30 AM EST Office Visit [facility] [address], [place] [address] Devon Laboy MD [address] [place] [address] [phone] Nasal trauma, initial encounter (Primary Dx); Closed fracture of nasal bone, initial encounter Social History Tobacco Use Types Packs/Day Years Used Date Smoking Tobacco: Never Passive Smoke Exposure: Never Smokeless Tobacco: Never Alcohol Use Standard Drinks/Week Comments Yes 12 (1 standard drink = 0.6 oz pu re alcohol) AUDIT-C Answer Date Recorded Q1: How often do you have a drink containing alcohol? 4 or more times a week 07/13/2025 Q2: How many drinks containi ng alcohol do you have on a typical day when you are drinking? 3 or 4 Q3: How often do you have si x or more drinks on one occasion? Monthly 07/13/2025 Comments Unknown Sex and Gender Information Value Date Recorded Sex Assigned at Female 07/13/2025 6:35 PM EST Legal Sex Female 6:30 PM EST Gender Identity Female 07/13/2025 6:35 PM EST Sexual Orientation Heterosexual (straight) 07/13 6:35 PM EST documented as of this encounter Last Filed Vital Signs Vital Sign Reading Time Taken Comments Blood Pressure - - Pulse - - Temperature - - Respiratory Rate - - Oxygen Saturation - - Inhaled Oxygen Concentration - - Weight 84.5 kg (186 lb 4.6 oz) 07/24/2025 8:41 A M EST Height 157.5 cm (5' 2 ) 07/24/2025 8:41 AM EST Body Mass Index 34.07 07/24/2025 8:41 AM EST documented in this encounter Progress Notes * Devon Laboy MD - 07/24/2025 8:30 AM EST Images from the original note were not included. [address] [facility], [address]LO[address] [facility] [address] Loc: [phone] Encounter Date: 07/24/2025 Chief Complaint Patient presents with Nasal Congestion 1. Nasal trauma, initial encounter 2. Closed fracture of nasal bone, initial encounter ASSESSMENT AND PLAN Milli Remy is a 65-year-old female with a recent nasal trauma resulting in mildly displaced bilateral nasal bone fractures and a minimally displaced fracture of the anterior septum. Her nasal passages are open with no septal hematoma on exam today. She reports her nasal breathing is subjectively fine today. There is minimal displacement of the nasal bones which could lead to a slight deformity that was discussed with her, but it is not currently affecting her breathing or causing her significant cosmetic concerns. The bruising is still present but expected to heal in the next week. She is gabriella slightly increased risk of nosebleed while healing due to her medications for atrial fibrillation. - Continue to allow the nasal fractures to heal naturally - Avoid aggressive nose blowing and strenuous activities until the weekend - Use nasal saline to keep nasal passages humidified - Monitor for any changes in nasal breathing or significant cosmetic concerns - Discussed open reduction may be considered if symptoms develop - She will follow-up if new symptoms arise HISTORY OF PRESENT ILLNESS Milli Remy is a 65-year-old female who presents for follow-up after a nasal trauma sustained on 07/13/2025. She was seen in the [facility] Emergency Room where a CT scan showed mildly displaced bilateral nasal bone fractures and a minimally displaced fracture of the anterior septum. She also has a history of atrial fibrillation and is currently on Eliquis, metoprolol, and diltiazem. The patient reports that the fall occurred when she missed placing her cane correctly while stepping off a curb [place], resulting in a forward fall. She denies loss of consciousness and states that there has been no further bleeding since the initial incident. She feels her nasal breathing is fine and does not notice any significant changes in the appearance of her nose. She denies any tenderness or changes in her bite. PHYSICAL EXAM The patient was in no acute distress and breathing comfortably on exam. Examination of the ears, nose, oral cavity, oropharynx, and neck was completed and found to be within normal limits with the following notable exceptions and findings highlighted here: - Mild bruising around the nasal area - No floating segments or severe step-offs palpated - Nasal passages are open - No septal hematoma observed - Minimal displacement of nasal bones noted DIAGNOSTIC TESTING REVIEWED CT scan of the maxillofacial area without contrast performed on 07/13/2025 showed mildly displaced bilateral nasal bone fractures and a minimally displaced fracture of the anterior septum. There was also concern for a minimally displaced fracture of the right medial maxillary wall. PAST MEDICAL HISTORY History reviewed. No pertinent past medical history. History reviewed. No pertinent surgical history. History reviewed. No pertinent family history. Social History[1] MEDICATIONS Current Medications[2] ALLERGIES Allergies[3] VISIT ORDERS 1. Nasal trauma, initial encounter 2. Closed fracture of nasal bone, initial encounter Devon Laboy MD [1] Social History Tobacco Use Smoking status: Never Passive exposure: Never Smokeless tobacco: Never Substance Use Topics Alcohol use: Yes Alcohol/week: 12.0 - 28.0 standard drinks of alcohol Types: 12 - 28 Standard drinks or equivalent per week [2] Current Outpatient Medications: CeleBREX 200 MG capsule, Take 200 mg by mouth., Disp: , Rfl: Eliquis 5 MG tablet, Take 5 mg by mouth., Disp: , Rfl: metoPROLOL TARTRATE (LOPRESSOR) 25 MG tablet, Take 25 mg by mouth., Disp: , Rfl: primidone (MYSOLINE) 250 MG tablet, Take 250 mg by mouth., Disp: , Rfl: Sertraline HCl 150 MG Cap, Take 150 mg by mouth., Disp: , Rfl: busPIRone (BUSPAR) 5 MG tablet, Take 5 mg by mouth 2 times a day., Disp: , Rfl: Dilt-XR 240 MG 24 hr capsule, Take by mouth., Disp: , Rfl: flecainide (TAMBOCOR) 100 MG tablet, Take 100 mg by mouth twice daily (every 12 hours)., Disp: , Rfl: propranolol (INDERAL) 20 MG tablet, Take 20 mg by mouth 3 (three) times a day., Disp: , Rfl: [3] Allergies Allergen Reactions Escitalopram Delirium/Confusion/Psychosis and Unknown/Patient and Family Unable to Define Gabapentin Delirium/Confusion/Psychosis Latex Hives and Itching Demerol [Meperidine] Itching documented in this encounter Plan of Treatment Not on file documented as of this encounter Visit Diagnoses Diagnosis Nasal trauma, initial encounter- Primary Closed fracture of nasal bone, initial encounter documented in this encounter Care Teams [employer] Relationship Specialty Start Date End Date Monique Bell PA-C [address] [place] [phone] PCP - General 07/24/25 documented as of this encounter
--- NOTE | ~2025-07-25 | MM_ITS ---
EXAMINATION: MM SCREENING DIGITAL BREAST TOMOSYNTHESIS, BILATERAL CLINICAL INFORMATION: Screening. Asymptomatic. COMPARISON: Mammography: Comparison is made with available priors TECHNIQUE: Digital breast mammography with tomosynthesis is performed in both the craniocaudal and mediolateral oblique views along with computer-aided detection (CAD). FINDINGS: The breasts are almost entirely fatty. Reduction mammoplasty. There are no significant masses, abnormal calcifications, or other abnormalities. MM/MM tomosynthesis screening BI IMPRESSION: No mammographic evidence of malignancy. ASSESSMENT: BI-RADS Category 2: Benign RECOMMENDATION: Routine annual mammography screening. 1 year F/U This examination should not preclude the clinical evaluation of a suspicious palpable abnormality. This patient's information was entered into a reminder system with a target due date for their next mammogram. Electronically signed by: Tess Miramontes DO 07/30/2025 12:30 PM MISTI
--- OUTSIDE RECORDS SUMMARY | 2025-07-25 16:59 | XMS_ITS | Clinical Summary ---
Author Organization [facility] ity Address [address] [place] [address] Care Team Providers Care Sustainable [employer] Faculty Name Role Phone Unavailable Primary Care Provider [...] Depression Screening 08/30/2024 COVID-19 Vaccine (1 - 2024-2 6 season) 2025 Influenza Vaccine (#1) 2025 RSV [...]
--- OUTSIDE RECORDS SUMMARY | 2025-07-25 16:59 | XMS_ITS | Clinical Summary ---
Author Organization [facility] Address [address] [place] [id number] Care Team Providers Care Burn Out Scarfing Operator Name Role Phone Monique Bell PA-C Primary Care Provider [phone] Allergies Active Allergy Reactions Criticality Noted Date Comments Meperidine Itching Low 07/13/2025 Escitalopram Delirium/Confusion/P sychosis,Unknown/P atient and Family Unable to Define Medium 07/24/2025 Gabapentin Delirium/Confusion/Psychosis Medium 025 Latex Hives,Itching Medium 07/13/2025 Medications Eliquis 5 MG tablet Take 5 mg by mouth. Active busPIRone (BUSPAR) 5 MG tablet Take 5 mg by mouth 2 times a day. Active CeleBREX 200 MG capsule Take 200 mg by mouth. Active Dilt-XR 240 MG 24 hr capsule Take by mouth. Active flecainide (TAMBOCOR) 100 MG tablet Take 100 mg by mouth twice daily (every 12 hours). Active metoPROLOL TARTRATE (LOPRESSOR) 25 MG tablet Take 25 mg by mouth. Active primidone (MYSOLINE) 250 MG tablet Take 250 mg by mouth. Active propranolol (INDERAL) 20 MG tablet Take 20 mg by mouth 3 (three) times a day. Active Sertraline HCl 150 MG Cap Take 150 mg by mouth. Active amoxicillin-cla vulanate (AUGMENTIN) 875-125 MG per tablet Take 1 tablet by mouth 2 (two) times a day. Take as directed or until you run out 20 tablet 5 07/23/20 25 Active Problems No known active problems Encounters Date Type Department Care Team Description 07/24/2025 8:30 AM EST Office Visit [facility] [address] [facility], [place] [address] Devon Laboy MD Nasal trauma, initial encounter (Primary Dx); Closed fracture of nasal bone, initial encounter 07/13/2025 6:19 PM EST - 07/13/2025 9:57 PM EST Emergency [facility] Emergency Department [address] [place] [id number] Erwin Vazquez MD Closed fracture of nasal bone, initial encounter (Primary Dx) Discharge Disposition: Home or Self Care from Last 3 Months Immunizations Immunization Administration Dates Next Due Influenza, Trivalent (FLUARI X, AFLURIA, FLULAVAL, FLUZONE) Preservative Free IM 06/30/2024 Social History Tobacco Use Types Packs/Day Years [...] Orientation Heterosexual (straight) 07/13 6:35 PM EST Last Filed Vital Signs Vital Sign Reading Time Taken Comments Blood Pressure 128/67 07/13/2025 8:35 PM EST Pulse 89 07/13/2025 8:35 PM EST Temperature 36.4 C (97.5 F) 07/13/2025 8:35 PM EST Respiratory Rate 18 07/13/2025 8:35 PM EST Oxygen Saturation 97% 07/13/2025 8:35 PM EST Inhaled Oxygen Concentration - - Weight 84.5 kg (186 lb 4.6 oz) 07/24/2025 8:41 A M EST Height 157.5 cm (5' 2 ) 07/24/2025 8:41 AM EST Body Mass Index 34.07 07/24/2025 8:41 AM EST Plan of Treatment Health Maintenance Due Date Last Done Comments Advance Care Planning 1960 Hepatitis C Virus Screening 1960 DTaP/Tdap/Td Vaccines (1 - Tdap) 1977 Mammogram 1998 Colonoscopy 2003 Pneumococcal Vaccines 50+ (1 of 1 - PCV) 2008 RSV Vaccine 50 years and older and Patients (1 - Risk 50-74 years 1-dose series) 2008 Zoster (Shingles) Vaccine (1 of 2) 2008 DXA Bone Density (Females,Ages 65 and older) 2023 Influenza Vaccine 03/30/2025 06/30/2024 COVID-19 Vaccine (3 - 2024-2 6 season) 2025 11/27/2020, 11/06/2020 Hepatitis B Vaccines Aged Out No long er eligible based on patient's age to complete this topic Procedures Procedure Name Priority Date/Time Associated Diagnosis Comments AMB REFERRAL TO ENT Routine 07/16/2025 1 0:52 AM EST ETHANOL, BLOOD STAT 07/13/2025 6:50 PM EST COMPREHENSIVE METABOLIC PANEL STAT 07/13/2025 6:50 PM EST COMPLETE BLOOD COUNT, WITH DIFFERENTIAL STAT 07/13/2025 6:[address] HEAD W/O CONTRAST STAT 07/13/2025 6:[address] CERVICAL SPINE W/O CONTRAST STAT 07/13/2025 6:[address] MAXILLOFACIAL W/O CONTRAST STAT 07/13/2025 6:34 PM EST from Last 3 Months Results * Amb Referral to ENT (07/16/2025 10:52 AM EST) us External Provider MD OUTPATIENT REFERRAL ORDERAB LES Final Result * (ABNORMAL) Complete Blood Count, with Differential (07/13/2025 6:50 PM EST) White Blood Cell Count 5.2 4.0 - 11.0 Thou/uL 07/13/2025 7:05 PM [facility] Platelet Count 150 150 - 450 Thou/uL 07/13/2025 7:05 PM [facility] Hemoglobin 11.3(L) 11.7 - 15.7 g/dL 07/13/2025 7:05 PM [facility] Hematocrit 33.1(L) 35.0 - 47.0 % 07/13/2025 7:05 PM [facility] Red Blood Cell Count 3.39(L) 4.00 - 5.40 Mil/uL 07/13/2025 7:05 PM [facility] MCV 98 80 - 100 fL 07/13/2025 7:05 PM [facility] MCH 33.3(H) 27.0 - 31.0 pg 07/13/2025 7:05 PM [facility] MCHC 34.1 30.0 - 36.0 g/dL 07/13/2025 7:05 PM [facility] RDW 13.7 11.5 - 14.5 % 07/13/2025 7:05 PM [facility] MPV 9.7 7.5 - 12.5 fL 07/13/2025 7:05 PM [facility] Neutrophils Auto 62.3 % 07/13/20 7:05 PM [facility] Immature Granulocytes 0.6 % 07/13/2025 7:05 PM [facility] Lymphocytes Auto 22.1 % 07/13/20 7:05 PM [facility] Monocytes Auto 12.9 % 07/13/2025 7:05 PM [facility] Eosinophils Auto 1.5 % 07/13/20 7:05 PM [facility] Basophils Auto 0.6 % 07/13/2025 7:05 PM [facility] Abs Neutrophils Auto 3.25 2.00 - 7.50 Thou/uL 07/13/2025 7:05 PM [facility] Abs Immature Granulocytes 0.03 0.00 - 0.10 Thou/uL 07/13/2025 7:05 PM [facility] Abs Lymphocytes Auto 1.15(L) 1.50 - 4.50 Thou/uL 07/13/2025 7:05 PM [facility] Abs Monocytes Auto 0.67 0.20 - 1.50 Thou/uL 07/13/2025 7:05 PM [facility] Abs Eosinophils Auto 0.08 0.00 - 0.70 Thou/uL 07/13/2025 7:05 PM [facility] Abs Basophils Auto 0.03 0.00 - 0.20 Thou/uL 07/13/2025 7:05 PM [facility] Blood Blood specimen / Unknown 07/13/2025 6:50 PM EST 07/13/2025 7:01 PM EST Erwin Vazquez MD LAB BLOOD ORDERABLES Final Re sult Performing Organization Address City/[facility]/[place] [address], [place] [address] * (ABNORMAL) Ethanol, Blood (07/13/2025 6:50 PM EST) Pathologist [facility] Ethanol, Quantitative, Blood 228(H) <11 mg/dL 07/13/2025 7:37 PM [facility] Comment:* FOR MEDICAL PURPOS ES ONLY * Blood Blood specimen / Unknown 07/13/2025 6:50 PM EST 07/13/2025 7:01 PM EST Erwin Vazquez MD LAB BLOOD ORDERABLES Final Re sult Performing Organization Address City/[facility]/ZIP Co de Phone Number [facility] [address] [place] [address], [place] [address] * (ABNORMAL) Comprehensive Metabolic Panel (07/13/2025 6:50 PM EST) [facility] Glucose 96 65 - 99 mg/dL 07/13/2025 7:37 PM [facility] Comment:Fasting: <100 mg/dL, Non-Fasting: <200 mg/dL (ADA 2004) Blood Urea Nitrogen (BUN) 11 8 - 21 mg/dL 07/13/2025 7:37 PM [facility] Creatinine 0.55 0.40 - 1.10 mg/dL 07/13/2025 7:37 PM [facility] eGFR >90 >59 07/13/2025 7:37 PM [facility] Comment:CKD-EPI (2020) in mL /min/1.73 sq meters. Sodium 128(L) 136 - 145 mmol/L 07/13/2025 7:37 PM [facility] Potassium 4.0 3.4 - 5.3 mmol/L 07/13/2025 7:37 PM [facility] Chloride 95(L) 98 - 107 mmol/L 07/13/2025 7:37 PM [facility] CO2 17(L) 22 - 33 mmol/L 07/13/2025 7:37 PM [facility] Calcium 8.5(L) 8.7 - 10.5 mg/dL 07/13/2025 7:37 PM [facility] Alkaline Phosphatase 67 32 - 122 U/L 07/13/2025 7:37 PM [facility] Aspartate Aminotrans (AST) 94(H) 10 - 50 U/L 07/13/2025 7:37 PM [facility] Alanine Aminotrans (ALT) 73(H) 10 - 50 U/L 07/13/2025 7:37 PM [facility] Bilirubin, Total 0.4 0.2 - 1.0 mg/dL 07/13/2025 7:37 PM [facility] Protein, Total 6.5 6.3 - 8.3 g/dL 07/13/2025 7:37 PM [facility] Albumin 4.2 3.4 - 4.8 g/dL 07/13/2025 7:37 PM [facility] BUN/Creatinine Ratio 20 10.0 - 25.0 Ratio 07/13/2025 7:37 PM [facility] Globulin 2.3 1.5 - 3.9 g/dL 07/13/2025 7:37 PM [facility] Albumin/Globulin Ratio 1.8 Ratio 07/13/2025 7:37 PM [facility] Anion Gap 16 7 - 17 07/13/2025 7:37 PM EST [facility] Blood Blood specimen / Unknown 07/13/2025 6:50 PM EST 07/13/2025 7:01 PM EST us Erwin Vazquez MD LAB BLOOD ORDERABLES Final Re sult [facility] [address] [place] [address], [facility] [address] [place] [address] * CT Head w/o contrast (07/13/2025 6:37 PM EST) Anatomical Region Laterality Modality Head Computed Tomogra phy 07/13/2025 6:39 PM EST Impressions 07/13/2025 6:51 PM EST 1. Small scalp hematoma in the right frontal/forehead region. Volume loss and likely chronic small vessel ischemic changes, but no definite acute intracranial injury seen. 2. Mildly displaced bilateral nasal bone fractures and minimally displaced fractures of the anterior nasal septum. Some irregularity of the right medial maxillary sinus wall, raising concern for a minimally displaced fracture in this region as well. High density fluid in the right maxillary sinus, possibly hemorrhage. 3. Degenerative changes, but no acute fracture or subluxation seen in the cervical spine. Narrative 07/13/2025 6:[address] MAXILLOFACIAL W/O CONTRAST, CT CERVICAL SPINE W/O CONTRAST, CT HEAD W/O CONTRAST INDICATION: Ground-level fall, striking face with nasal tenderness COMPARISON: None. INTRAVENOUS CONTRAST: None. TECHNIQUE: Axial images were acquired from the skull base to the vertex, of the facial bones, and of the cervical spine without contrast. Iterative reconstruction was employed. FINDINGS: Head: No acute intracranial hemorrhage, mass effect, or midline shift is seen. There is no CT evidence of an acute, major vascular distribution infarction. The ventricles and sulci are enlarged, compatible with volume loss. There is bilateral periventricular and some cortical white matter hypodensity, likely due to chronic small vessel ischemic changes. A small scalp hematoma is seen in the right frontal/forehead region. Facial bones: There are bilateral mildly displaced nasal bone fractures and a minimally displaced fracture the anterior nasal septum. There is also some irregularity of the right maxillary sinus wall, raising concern for a minimally displaced fracture, although evaluation in this area is limited, due to patient motion. There is no evidence of globe rupture or retrobulbar hematoma. No jaw dislocation is seen. There is high density fluid in the right maxillary sinus, which could represent hemorrhage. There is minimal left maxillary sinus thickening, as well. Cervical spine: No acute fracture or subluxation is identified. Multilevel degenerative changes are seen throughout the cervical spine, manifested by disc space narrowing, endplate changes, osteophytosis, and facet arthropathy. The visualized lung apices demonstrate scarring. Procedure Note Simi Barnes MD - 07/13/2025 CT MAXILLOFACIAL W/O CONTRAST, CT CERVICAL SPINE W/O CONTRAST, CT HEAD W/OCONTRAST INDICATION: Ground-level fall, striking face with nasal tenderness COMPARISON: None. INTRAVENOUS CONTRAST: None. TECHNIQUE: Axial images were acquired from the skull base to the vertex,of the facial bones, and of the cervical spine without contrast. Iterativereconstruction was employed. FINDINGS: Head: No acute intracranial hemorrhage, mass effect, or midline shift is seen.There is no CT evidence of an acute, major vascular distributioninfarction. 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 There is bilateral periventricular and some cortical white matter hypodensity, likely due to chronic smallvessel ischemic changes. A small scalp hematoma is seen in the rightfrontal/forehead region. Facial bones: There are bilateral mildly displaced nasal bone fractures and a minimallydisplaced fracture the anterior nasal septum. There is also someirregularity of the right maxillary sinus wall, raising concern for aminimally displaced fracture, although evaluation in this area is limited, due to patient motion. There is noevidence of globe rupture or retrobulbar hematoma. No jaw dislocation isseen. There is high density fluid in the right maxillary sinus, whichcould represent hemorrhage. There is minimal left maxillary sinus thickening, as well. Cervical spine: No acute fracture or subluxation is identified. Multilevel degenerativechanges are seen throughout the cervical spine, manifested by disc spacenarrowing, endplate changes, osteophytosis, and facet arthropathy. The visualized lung apices demonstrate scarring. IMPRESSION: 1. Small scalp hematoma in the right frontal/forehead region. Volume lossand likely chronic small vessel ischemic changes, but no definite acuteintracranial injury seen. 2. Mildly displaced bilateral nasal bone fractures and minimally displacedfractures of the anterior nasal septum. Some irregularity of the rightmedial maxillary sinus wall, raising concern for a minimally displacedfracture in this region as well. High density fluid in the right maxillary sinus, possibly hemorrhage. 3. Degenerative changes, but no acute fracture or subluxation seen in thecervical spine. us Erwin Vazquez MD IMG CT ORDERABLES Final Resul t * CT Cervical spine w/o contrast (07/13/2025 6:34 PM EST) Anatomical Region Laterality Modality C-spine Computed Tomogra phy 07/13/2025 6:39 PM EST Impressions 07/13/2025 6:51 PM EST 1. Small scalp hematoma in the right frontal/forehead region. Volume loss and likely chronic small vessel ischemic changes, but no definite acute intracranial injury seen. 2. Mildly displaced bilateral nasal bone fractures and minimally displaced fractures of the anterior nasal septum. Some irregularity of the right medial maxillary sinus wall, raising concern for a minimally displaced fracture in this region as well. High density fluid in the right maxillary sinus, possibly hemorrhage. 3. Degenerative changes, but no acute fracture or subluxation seen in the cervical spine. Narrative 07/13/2025 6:[address] MAXILLOFACIAL W/O CONTRAST, CT CERVICAL SPINE W/O CONTRAST, CT HEAD W/O CONTRAST INDICATION: Ground-level fall, striking face with nasal tenderness COMPARISON: None. INTRAVENOUS CONTRAST: None. TECHNIQUE: Axial images were acquired from the skull base to the vertex, of the facial bones, and of the cervical spine without contrast. Iterative reconstruction was employed. FINDINGS: Head: No acute intracranial hemorrhage, mass effect, or midline shift is seen. There is no CT evidence of an acute, major vascular distribution infarction. The ventricles and sulci are enlarged, compatible with volume loss. There is bilateral periventricular and some cortical white matter hypodensity, likely due to chronic small vessel ischemic changes. A small scalp hematoma is seen in the right frontal/forehead region. Facial bones: There are bilateral mildly displaced nasal bone fractures and a minimally displaced fracture the anterior nasal septum. There is also some irregularity of the right maxillary sinus wall, raising concern for a minimally displaced fracture, although evaluation in this area is limited, due to patient motion. There is no evidence of globe rupture or retrobulbar hematoma. No jaw dislocation is seen. There is high density fluid in the right maxillary sinus, which could represent hemorrhage. There is minimal left maxillary sinus thickening, as well. Cervical spine: No acute fracture or subluxation is identified. Multilevel degenerative changes are seen throughout the cervical spine, manifested by disc space narrowing, endplate changes, osteophytosis, and facet arthropathy. The visualized lung apices demonstrate scarring. Procedure Note Simi Barnes MD - 07/13/2025 CT MAXILLOFACIAL W/O CONTRAST, CT CERVICAL SPINE W/O CONTRAST, CT HEAD W/OCONTRAST INDICATION: Ground-level fall, striking face with nasal tenderness COMPARISON: None. INTRAVENOUS CONTRAST: None. TECHNIQUE: Axial images were acquired from the skull base to the vertex,of the facial bones, and of the cervical spine without contrast. Iterativereconstruction was employed. FINDINGS: Head: No acute intracranial hemorrhage, mass effect, or midline shift is seen.There is no CT evidence of an acute, major vascular distributioninfarction. 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 There is bilateral periventricular and some cortical white matter hypodensity, likely due to chronic smallvessel ischemic changes. A small scalp hematoma is seen in the rightfrontal/forehead region. Facial bones: There are bilateral mildly displaced nasal bone fractures and a minimallydisplaced fracture the anterior nasal septum. There is also someirregularity of the right maxillary sinus wall, raising concern for aminimally displaced fracture, although evaluation in this area is limited, due to patient motion. There is noevidence of globe rupture or retrobulbar hematoma. No jaw dislocation isseen. There is high density fluid in the right maxillary sinus, whichcould represent hemorrhage. There is minimal left maxillary sinus thickening, as well. Cervical spine: No acute fracture or subluxation is identified. Multilevel degenerativechanges are seen throughout the cervical spine, manifested by disc spacenarrowing, endplate changes, osteophytosis, and facet arthropathy. The visualized lung apices demonstrate scarring. IMPRESSION: 1. Small scalp hematoma in the right frontal/forehead region. Volume lossand likely chronic small vessel ischemic changes, but no definite acuteintracranial injury seen. 2. Mildly displaced bilateral nasal bone fractures and minimally displacedfractures of the anterior nasal septum. Some irregularity of the rightmedial maxillary sinus wall, raising concern for a minimally displacedfracture in this region as well. High density fluid in the right maxillary sinus, possibly hemorrhage. 3. Degenerative changes, but no acute fracture or subluxation seen in thecervical spine. us Erwin Vazquez MD IMG CT ORDERABLES Final Resul t * CT Maxillofacial w/o contrast (07/13/2025 6:34 PM EST) Anatomical Region Laterality Modality Face Computed Tomogra phy 07/13/2025 6:39 PM EST Impressions 07/13/2025 6:51 PM EST 1. Small scalp hematoma in the right frontal/forehead region. Volume loss and likely chronic small vessel ischemic changes, but no definite acute intracranial injury seen. 2. Mildly displaced bilateral nasal bone fractures and minimally displaced fractures of the anterior nasal septum. Some irregularity of the right medial maxillary sinus wall, raising concern for a minimally displaced fracture in this region as well. High density fluid in the right maxillary sinus, possibly hemorrhage. 3. Degenerative changes, but no acute fracture or subluxation seen in the cervical spine. Narrative 07/13/2025 6:[address] MAXILLOFACIAL W/O CONTRAST, CT CERVICAL SPINE W/O CONTRAST, CT HEAD W/O CONTRAST INDICATION: Ground-level fall, striking face with nasal tenderness COMPARISON: None. INTRAVENOUS CONTRAST: None. TECHNIQUE: Axial images were acquired from the skull base to the vertex, of the facial bones, and of the cervical spine without contrast. Iterative reconstruction was employed. FINDINGS: Head: No acute intracranial hemorrhage, mass effect, or midline shift is seen. There is no CT evidence of an acute, major vascular distribution infarction. The ventricles and sulci are enlarged, compatible with volume loss. There is bilateral periventricular and some cortical white matter hypodensity, likely due to chronic small vessel ischemic changes. A small scalp hematoma is seen in the right frontal/forehead region. Facial bones: There are bilateral mildly displaced nasal bone fractures and a minimally displaced fracture the anterior nasal septum. There is also some irregularity of the right maxillary sinus wall, raising concern for a minimally displaced fracture, although evaluation in this area is limited, due to patient motion. There is no evidence of globe rupture or retrobulbar hematoma. No jaw dislocation is seen. There is high density fluid in the right maxillary sinus, which could represent hemorrhage. There is minimal left maxillary sinus thickening, as well. Cervical spine: No acute fracture or subluxation is identified. Multilevel degenerative changes are seen throughout the cervical spine, manifested by disc space narrowing, endplate changes, osteophytosis, and facet arthropathy. The visualized lung apices demonstrate scarring. Procedure Note Simi Barnes MD - 07/13/2025 CT MAXILLOFACIAL W/O CONTRAST, CT CERVICAL SPINE W/O CONTRAST, CT HEAD W/OCONTRAST INDICATION: Ground-level fall, striking face with nasal tenderness COMPARISON: None. INTRAVENOUS CONTRAST: None. TECHNIQUE: Axial images were acquired from the skull base to the vertex,of the facial bones, and of the cervical spine without contrast. Iterativereconstruction was employed. FINDINGS: Head: No acute intracranial hemorrhage, mass effect, or midline shift is seen.There is no CT evidence of an acute, major vascular distributioninfarction. 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 There is bilateral periventricular and some cortical white matter hypodensity, likely due to chronic smallvessel ischemic changes. A small scalp hematoma is seen in the rightfrontal/forehead region. Facial bones: There are bilateral mildly displaced nasal bone fractures and a minimallydisplaced fracture the anterior nasal septum. There is also someirregularity of the right maxillary sinus wall, raising concern for aminimally displaced fracture, although evaluation in this area is limited, due to patient motion. There is noevidence of globe rupture or retrobulbar hematoma. No jaw dislocation isseen. There is high density fluid in the right maxillary sinus, whichcould represent hemorrhage. There is minimal left maxillary sinus thickening, as well. Cervical spine: No acute fracture or subluxation is identified. Multilevel degenerativechanges are seen throughout the cervical spine, manifested by disc spacenarrowing, endplate changes, osteophytosis, and facet arthropathy. The visualized lung apices demonstrate scarring. IMPRESSION: 1. Small scalp hematoma in the right frontal/forehead region. Volume lossand likely chronic small vessel ischemic changes, but no definite acuteintracranial injury seen. 2. Mildly displaced bilateral nasal bone fractures and minimally displacedfractures of the anterior nasal septum. Some irregularity of the rightmedial maxillary sinus wall, raising concern for a minimally displacedfracture in this region as well. High density fluid in the right maxillary sinus, possibly hemorrhage. 3. Degenerative changes, but no acute fracture or subluxation seen in thecervical spine. us Erwin Vazquez MD IMG CT ORDERABLES Final Resul t from Last 3 Months Insurance MEDICARE PART A Member Subscriber Plan / Payer ( fective 2023-Present) Name:Milli Remy Member ID:[id number] Relation to Subscriber:Self Name:Milli Remy Subscriber ID:[id number] Payer ID:[id number] Group ID:Not on file Type:Not on file Address: [place] [phone] MEDICARE PART A Member Subscriber Plan / Payer ( fective 2023-Present) Name:Milli Remy Member ID:[id number] Relation to Subscriber:Self Name:Jonel Katrina Subscriber ID:[id number] Payer ID:[id number] Group ID:Not on file Type:Not on file Address: [place] [phone] [facility] Care Teams Burn Out Scarfing Operator Relationship Specialty Start Date End Date Monique Bell PA-C [address] [place] [id number] PCP - General 07/24/25
--- OUTSIDE RECORDS SUMMARY | 2025-07-25 16:59 | XMS_ITS ---
[facility] Name [facility] Organization Unknown Results Test Name/Text Value Interpretation Date Range Source Ethanol SerPl-mCnc 228.0 mg/dL Above high normal 07/14/2025 - 11 [facility] Globulin Ser Calc-mCnc 2.3 g/dL 07/14/2025 1.5 - 3.9 [facility] Calcium SerPl-mCnc 8.5 mg/dL Below low normal 07/14/2025 8.7 - 10.5 [facility] Glucose SerPl-mCnc 96.0 mg/dL 07/14/2025 65 - 99 [facility] Prot SerPl-mCnc 6.5 g/dL 07/14/2025 6.3 - 8.[address] Albumin SerPl-mCnc 4.2 g/dL 07/14/2025 3.4 - 4.8 [facility] Potassium SerPl-sCnc 4.0 mmol/L 07/14/2025 3.4 - 5 .3 [facility] Chloride SerPl-sCnc 95.0 mmol/L Below low normal 07/14/2025 98 - 107 [facility] CO2 SerPl-sCnc 17.0 mmol/L Below low normal 07/14/2025 22 - 33 [facility] AST SerPl-cCnc 94.0 U/L Above high normal 07/14/2025 10 - 5 0 [facility] BUN SerPl-mCnc 11.0 mg/dL 07/14/2025 8 - [address] Creat SerPl-mCnc 0.55 mg/dL 07/14/2025 0.4 - 1.1 H [facility] ALT SerPl-cCnc 73.0 U/L Above high normal 07/14/2025 10 - 5 0 [facility] GFR/BSA.pred SerPlBld WPD-HMF-CiQKej >90.0 07/14/2025 59 - [facility] Albumin/Glob SerPl 1.8 Ratio 07/14/2025 [facility] ALP SerPl-cCnc 67.0 U/L 07/14/2025 32 - 122 [facility] T BUN/Creat SerPl 20.0 Ratio 07/14/2025 10 - 25 HH CCT Sodium SerPl-sCnc 128.0 mmol/L Below low normal 07/14/2025 1 36 - 145 [facility] Anion Gap Bld-sCnc 16.0 07/14/2025 7 - 17 [facility] Bilirub SerPl-mCnc 0.4 mg/dL 07/14/2025 0.2 - 1 [facility] WBC num Bld Auto 5.2 Thou/uL 07/14/2025 4 - 11 [facility] Monocytes/leuk NFr Bld Auto 12.9 % 07/14/2025 [facility] Eosinophil/leuk NFr Bld Auto 1.5 % 07/14/2025 [facility] Basophils/leuk NFr Bld Auto 0.6 % 07/14/2025 [facility] Hgb Bld-mCnc 11.3 g/dL Below low normal 07/14/2025 11.7 - 15 .7 [facility] Eosinophil num Bld Auto 0.08 Thou/uL 07/14/2025 0 - 0.7 [facility] Basophils num Bld Auto 0.03 Thou/uL 07/14/2025 0 - 0.2 [facility] Imm Granulocytes num Bld Auto 0.03 Thou/uL 07/14/2025 0 - 0.1 [facility] Lymphocytes num Bld Auto 1.15 Thou/uL Below low normal 07/14/2025 1.5 - 4.5 [facility] PMV Bld Auto 9.7 fL 07/14/2025 7.5 - 12.5 [facility] Monocytes num Bld Auto 0.67 Thou/uL 07/14/2025 0.2 - 1.5 [facility] Lymphocytes/leuk NFr Bld Auto 22.1 % 07/14/2025 [facility] Platelet num Bld Auto 150.0 Thou/uL 07/14/2025 150 - 450 [facility] Hct VFr Bld Auto 33.1 % Below low normal 07/14/2025 35 - 47 [facility] MCH RBC Qn Auto 33.3 pg Above high normal 07/14/2025 27 - 31 [facility] RDW RBC Auto-Rto 13.7 % 07/14/2025 11.5 - 14.5 [facility] Neutrophils/leuk NFr Bld Auto 62.3 % 07/14/2025 CCT MCV RBC Auto 98.0 fL 07/14/2025 80 - 100 [facility] Neutrophils num Bld Auto 3.25 Thou/uL 07/14/2025 2 - 7.5 [facility] MCHC RBC Auto-mCnc 34.1 g/dL 07/14/2025 30 - 36 [facility] RBC num Bld Auto 3.39 Mil/uL Below low normal 07/14/2025 4 - 5.4 [facility] Imm Granulocytes/leuk NFr Bld Auto 0.6 % 07/14/2025 [facility] History of Medication Use Medication Directions Dispensed Refills Start Date End Date Stat us amoxicillin-clav ulanate (AUGMENTIN) 875-125 MG per tablet 1 tablet 1 tablet, Oral, Once, On Wed07/13/25 at 2129, For 1 dose, All antimicrobials used at [facility] require an indication. Please complete the following documentation. Medical Prophylaxis 07/13/2025 07/14/2025 complete d Allergies Allergen Reaction Severity Comment Documented Date Source Statu s LATEX IT[facility]ING [facility] MEPERIDINE ITCHING 07/13/2025 [facility] active Problems Problem Status Onset Date Problem Type Date of Resoluti on Source Closed fracture of nasal bone, initial encounter active [facility]counterDiagnosisAct [facility] Encounters Encounter Type Encounter Reason Primary Diagnosis Location Date Ambulatory Nasal Congestion [facility]al Congestion [place] [facility] Emergency Fracture of nasal bones, initial encounter for closed fracture Fracture of nasal bones, initial encounter for closed fracture [facility] 07/13/2025 Care Team Organization Name Specialty Phone Email Start Date End Da te [employer] [facility] Primary Care 07/24/2025 [facility] 07/14/2025 [employer] PROVIDER SYSTEM Primary Care 07/14/2025 [facility] 07/13/2025
== END 2025-07-25 13:56 | disposition home or self-care (01) ==
LOC: HO.MAMMO 13:55
PROVIDERS: PCP Physician Assistant; Visit Provider Physician Assistant
DX: Z12.31 Encounter for screening mammogram for malignant neoplasm of breast (principal)
CPT/HCPCS: 77063; 77067

== ENCOUNTER → 2025-07-25 14:00 | Outpatient (BNV) | payer OTHER, SELFPAY | PROVIDERS: PCP Physician Assistant; Visit Provider Internal Medicine | DX: Z12.31 Encounter for screening mammogram for malignant neoplasm of breast (principal) | CPT/HCPCS: 77063; 77067 ==

== ENCOUNTER 2025-08-21 15:18 | Outpatient (AMB) | payer OTHER, SELFPAY ==
--- NOTE | 2025-08-21 15:25 | A.OFFVIS_ITS ---
Intake Visit Reasons: Tremors Allergies latex (LATEX) Allergy (Intermediate, Verified 05/18/25 13:52) RASH meperidine Adverse Reaction (Intermediate, Verified 05/18/25 13:52) VOMITING STOMACH UPSET HPI Comments Details: 65 years old right-handed woman who has been treated for tremor for number of years. She has been taking primidone 250 mg at night. Tremor started more than 10 years ago and affected mostly her hands. Slowly and gradually it was getting worse and now it was affecting her abilities. She was also concerned about lack of facial expression, which she has noted recently. He denied any problem with the memory. Sometime she had difficulty controlling bladder. There was no sudden change in personality. There was no history of head injury or trauma. There was no significant sleep issues. 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 Complain of weight gain fatigue and malaise. HEENT:? Complain of dryness of eyes. Cardiovascular:?No chest pain, palpitations, orthopnea, PND, or leg swelling. Respiratory:?No cough, shortness of breath, wheezing, or hemoptysis. Gastrointestinal:? Complain of constipation. Genitourinary:? Complain of occasional incontinence. Musculoskeletal:? Complain of neck pain. Neurological:? Complain of difficulty walking, weakness, tremor,. Psychiatric:?No anxiety, depression, mood swings, sleep disturbance, or hallucinations. Endocrine:? Complain of cold intolerance. Hematologic/Lymphatic:?No easy bruising, bleeding, or lymphadenopathy. Integumentary (Skin):?No rash, lesions, itching, or color changes. Allergic/Immunologic:?No seasonal allergies, hives, or recurrent infections. Physical Exam Neuro Other: Mental Status: Alert and oriented to person, place, and time. Normal attention. Normal spontaneous speech, fluency, and comprehension. No obvious issues with mood and memory. Affect is appropriate. Cranial Nerves: CN II: Visual grullon full to confrontation, visual acuity intact. CN III, IV, : Pupils equal, round, reactive to light and accommodation. Extraocular movements are normal. CN V: Facial sensation is normal. CN VII: Facial movements symmetrical. CN VIII: Hearing intact to bedside conversation is normal. CN IX, X: Palate elevates symmetrically. CN XI: Shoulder shrug and head turn symmetrical. CN XII: Tongue midline without atrophy or fasciculations. Motor: Bulk and tone normal in all extremities. No significant muscle weakness in arms and legs. No drift. Reflexes: Deep tendon reflexes are trace to absent. Coordination: Tmuynh-fu-tpcm and mfqw-pn-yplg testing normal. No dysmetria. Gait and Station: Slightly wide-based and cautious. Extrapyramidal: Facial expression blinking or diminished. Gaze is full. Mglj-qm-bhzeonde bilateral hand mixed tremor. Speech: Normal; no dysarthria or tremor. Assessment & Plan Assessment & Plan (1) Tremor: Code(s): R25.1 - Tremor, unspecified Category: Medical (2) Parkinsonism: Code(s): G20.C - Parkinsonism, unspecified Category: Medical Qualifiers: Parkinsonism type: unspecified Qualified Code(s): G20.C - Parkinsonism, unspecified Plan Impression: Mild parkinsonism with moderate bilateral hand tremor, resting and action type Rec: a: MRI brain WO b: Continue primidone 250mg one at bedtime c: Add primidone 50mg one in am She was educated about possibility of degenerative brain disorder which could present has mild parkinsonism including decreased facial expression. At this time she did not have any more definitive signs to suggest the type of parkinsonian syndrome. Potentially there many etiologies including vascular disease. An MRI of brain was requested for definition. Orders: Orders MR head/brain wo con Today G20.C - Parkinsonism, unspecified Medications: New primidone 50 mg orally one in am with 250mg tab at night; 90 tabs 0RF Coding Level of Care Code New Pt Level 4 (84651) Diagnoses Tremor R25.1 Parkinsonism, unspecified Parkinsonism type G20.C Parkinsonism type: unspecified
--- OUTSIDE RECORDS SUMMARY | 2025-08-21 16:30 | XMS_ITS | Patient Health Record ---
Author Organization [facility] Address [address] [place] [address] Care Team Providers Care Demand Planning Manager Name Role Phone Tio (RETIRED) Hector STEVENS Primary Care Provider Unavailable Cornelio Sahni Unavailable [phone] Allergies Allergen (clinical drug ingredient) Drug/Non Drug Allergy documented on EMR Reaction Allergy Type Onset Date Status Latex latex (uncoded) Unknown Allergy Acti ve meperidine Demerol Unknown Drug Allergy Active Reason For Referral No Information Medications Medication SIG (Take, Route, Frequency, Duration) Notes Start Date End Date Status Gabapentin 300 MG Capsule 1 capsule Oral ly Three times a day/as needed Active dilTIAZem HCl 120 MG Tablet 1 tablet before meals Orally daily Active Sertraline HCl 100 MG Tablet 1 tablet Orally Once a day A ctive coumadin - - 1 tab Oral as directed Active Aspirin Adult Low Dose 81 MG Tablet Delayed Release 1 tablet Orally Once a day; Duration: 30 day(s) Active Omeprazole 20 MG Capsule Delayed Release TAKE 1 CAPSULE BY MOUTH EVERY DAY; Duration: 90 Active Primidone 100 mg 1 tablet Orally at night Active LORazepam 0.5 MG Tablet 1 tablet as need ed Orally Once a day Active Albuterol Sulfate HFA 108 (90 Base) MCG/ACT Aerosol Solution 2 puffs as needed Inhalation every 6 hrs/as directed Active Immunizations Vaccine Route Administration Date Status Comme nts Influenza Unknown 09/08/2018 Refused Social History Social History Drugs/Alcohol: Social Info Question Answer Notes Alcohol Screen Did you have a drink containing alcohol in the past year? Yes How often did you have a drink containing alcohol in the past year? 2 to 4 times a month (2 points) How many drinks did you have on a typical day when you were drinking in the past year? 1 or 2 drinks (0 point) How often did you have 6 or more drinks on one occasion in the past year? 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 amounts of alcohol She does not smoke; no sig EtOH 1 glass of milk per day She does not smoke; no sig EtOH 1 glass of milk per day Problems Problem Type SNOMED Code ICD Code Onset Dates Problem Status W/U Status Risk Notes Problem Screening for malignant neoplasm of colon (329023779) Encounter for screening for malignant neoplasm of colon (Z12.11) Active confirmed Problem History of adenomatous polyp of colon (710405673) History of adenomatous polyp of colon (Z86.010) Active confirmed Problem Abdominal bloating (708641304) Abdominal bloating (R14.0) Active confirmed Problem Gastroesophageal reflux disease (380027381) Gastroesophageal reflux disease, esophagitis presence not specified (K21.9) Active confirmed Problem Constipation (11052782) Constipation, unspecified constipation type (K59.00) Active confirmed Problem Irritable bowel syndrome characterized by constipation (920912107) Irritable bowel syndrome with constipation (K58.1) Active confirmed Plan Of Treatment Future Test Test Name Order Date UPPER GI ENDOSCOPY 07/31/2011 UPPER GI ENDOSCOPY 09/08/2018 COLONOSCOPY 09/08/2018 Insurance Providers Payer Name Payer Address Payer Phone Subscriber Number Group Number Insured Name Patient Relationship to Insured Coverage Start Date Coverage End Date [facility] [address] [place] [address] [id number] ALEC GREGORY Self - patient is the insured Medical (General) History Medical History History ICD Code Afib GERD--EGD in 2010 with a sm all HH --no esophagitis--mild gastritis--bx neg for H.pylori; upper endoscopy in September of 2018 revealed a moderate-sized hiatal hernia, mild gastritis, and mild reflux esophagitis--biopsies were negative for H. pylori and negative for Bliss's esophagus; duodenal biopsies were also negative for celiac disease. Migraines Depression Denies [place],DM,CVA,Lung disease,renal dise ase Fatty liver--neg w/u in [...]
--- OUTSIDE RECORDS SUMMARY | 2025-08-21 16:30 | XMS_ITS | Patient Health Record ---
[facility] Address [address] [place] [address] Care Team Providers Care Car Stower Name Role Phone Hector Kinsey MD Primary Care Provider Janice Pavon Unavailable [phone] Allergies Allergen (clinical drug ingredient) Drug/Non Drug Allergy documented on EMR Reaction Allergy Type Onset Date Status meperidine Demerol vomiting Drug Allergy Active Adhesive rash Allergy Active Latex Latex rash Allergy Active Reason For Referral No Information Medications Medication SIG (Take, Route, Fr equency, Duration) Notes Start Date End Date Status Calcium Active Vitamin D Active CeleBREX Active Primidone 250 MG 1 tablet Orally Twic e a day; Duration: 30 day(s) Active Propranolol HCl 20 MG 1 tablet Orally On ce a day; Duration: 30 day(s) Active Eliquis 5 MG 1 tablet Orally Twic e a day; Duration: 30 day(s) Active dilTIAZem HCl ER 240 MG 1 capsule Orally Once a day; Duration: 30 day(s) Active busPIRone HCl 5 MG 1 tablet Orally Twice a day Active predniSONE 5 MG 1 tablet with food o r milk Orally Once a day; Duration: 30 day(s) 02/19/2025 Active Sertraline HCl Activ e Immunizations Vaccine Route Administration Date Status Comme nts Influenza Unknown 06/30/2024 Administered Social History Tobacco Use: Social History Observation Description Date Details (start date - stop date) Never Smoker NA - NA Tobacco use other than smoking: Question Answer Notes Are you an other tobacco user? No Tobacco Control (Standard) Question Answer Notes Tobacco use: Nonsmoker Additional Findings: Tobacco non-user Current no nsmoker AUDIT-C (Standard) Question Answer Notes Did you have a drink containing alcohol in the p ast year? No Points 0 Interpretation Negative Problems Problem Type SNOMED Code ICD Code Onset Dates Problem Status W/U Status Risk Notes Problem Contracture of joint of left foot (disorder) (864217001389199 ) Contracture, left foot (M24.575) Active confirmed Problem Plantar fascial fibromatosis (75666211) Plantar fascial fibromatosis (M72.2) Active confirmed Problem Acquired hallux valgus (83276405) Hallux valgus (acquired), left foot (M20.12) Active confirmed Problem Acquired hallux valgus (49567018) Hallux valgus (acquired), right foot (M20.11) Active confirmed Problem Acquired hammer toe of right foot (700353330322133 5) Hammer toe of right foot (M20.41) Active confirmed Problem Acquired hammer toe of left foot (610298325547433 3) Hammer toe of left foot (M20.42) Active confirmed Problem Plantar fasciitis (668509285) Plantar fasciitis (M72.2) Active confirmed / Vital Signs Blood pressure diastolic 65 mm Hg 04/05/2025 Height 5 ft 2 in in 04/05/2025 Blood pressure systolic 126 mm Hg 04/05/2025 Weight 170 lbs 04/05/2025 BMI 31.09 kg/m2 04/05/2025 Procedures Procedure Date Ordered Date Performed Result Body Sit e 38471,[id number] TENDON SHEATH/LIGAMENT 02/19/2025 N/A Encounters Encounter Location Date Provider Diagnosis [facility] [address] [address] 02/19/2025 Janice Gtz Pain in left foot M79.672 ; Pain in left ankle and joints of left foot M25.572 ; Bursitis of left foot M77.52 ; Hallux valgus (acquired), left foot M20.12 ; Pain in right foot M79.671 ; Pain in right ankle and joints of right foot M25.571 ; Bursitis of right foot M77.51 ; Hallux valgus (acquired), right foot M20.11 ; Plantar fasciitis M72.2 ; Plantar fascial fibromatosis M72.2 ; 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 and Osteoarthritis of left midfoot M19.072 [facility] [address] [place] [address] 04/05/2025 Janice Gtz Pain in left foot M79.672 ; Pain in left ankle and joints of left foot M25.572 ; Bursitis of left foot M77.52 ; Hallux valgus (acquired), left foot M20.12 ; Pain in right foot M79.671 ; Pain in right ankle and joints of right foot M25.571 ; Bursitis of right foot M77.51 ; Hallux valgus (acquired), right foot M20.11 ; Plantar fasciitis M72.2 ; Plantar fascial fibromatosis M72.2 ; 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 and Osteoarthritis of left midfoot M19.072 Assessments Encounter Date Diagnosis (ICD Code) Assessment Notes Treatment Notes Treatment Clinical Notes Section Notes 02/19/2025 Pain in left ankle and joints of left foot (ICD-10 - M25.572) 02/19/2025 Pain in left foot (ICD-10 - M79.672) 04/05/2025 Pain in left ankle and joints of left foot (ICD-10 - M25.572) 04/05/2025 Pain in left foot (ICD-10 - M79.672) 04/05/2025 Bursitis of left foot (ICD-10 - M77.52) 02/19/2025 Bursitis of left foot (ICD-10 - M77.52) 02/19/2025 Hallux valgus (acquired), left foot (ICD-10 - M20.12) 04/05/2025 Hallux valgus (acquired), left foot (ICD-10 - M20.12) 04/05/2025 Pain in right foot (ICD-10 - M79.671) 02/19/2025 Pain in right foot (ICD-10 - M79.671) 02/19/2025 Pain in right ankle and joints of right foot (ICD-10 - M25.571) 04/05/2025 Pain in right ankle and joints of right foot (ICD-10 - M25.571) 04/05/2025 Bursitis of right foot (ICD-10 - M77.51) 02/19/2025 Bursitis of right foot (ICD-10 - M77.51) 02/19/2025 Hallux valgus (acquired), right foot (ICD-10 - M20.11) 04/05/2025 Hallux valgus (acquired), right foot (ICD-10 - M20.11) 04/05/2025 Plantar fasciitis (ICD-10 - M72.2) / Patient Educated with: RICE THERAPY.pdf (RICE THERAPY.pdf) Patient Educated with: INJECTIONTHER APY.pdf (INJECTIONTHE RAPY.pdf) 02/19/2025 Plantar fasciitis (ICD-10 - M72.2) / Patient Educated with: RICE THERAPY.pdf (RICE THERAPY.pdf) Patient Educated with: INJECTIONTHER APY.pdf (INJECTIONTHE RAPY.pdf) 02/19/2025 Plantar fascial fibromatosis (ICD-10 - M72.2) 04/05/2025 Plantar fascial fibromatosis (ICD-10 - M72.2) 02/19/2025 Osteoarthritis of right midfoot (ICD-10 - M19.071) 04/05/2025 Osteoarthritis of right midfoot (ICD-10 - M19.071) 04/05/2025 Osteoarthritis of left midfoot (ICD-10 - M19.072) 02/19/2025 Osteoarthritis of left midfoot (ICD-10 - M19.072) Plan Of Treatment Pending Test Test Name Order Date X ray : Foot, left 3V 10/02/2022 X ray : Foot, left 3V 02/19/2025 X ray : Foot, right 3V 02/19/2025 X ray : Foot, right 3V 10/02/2022 [id number] TENDON SHEATH/LIGAMENT 0 02/19/2025 Insurance Providers Payer Name Payer Address Payer Phone Subscriber Number Group Number Insured Name Patient Relationship to Insured Coverage Start Date Coverage End Date [facility] [address] [place] [address] [id number] Marci Hernandez Self - patient is the insured Medical (General) History Medical History History ICD Code Broken bones covid-19 Depression Diverticulosis Gall bladder problems Headaches/Migraines thyroid Measles Mumps Chicken pox Joint implants/screws Surgical History Surgery Date(Month/Year) hysterectomy 09/1991 colon resection 03/2003 knee replacement 10/2016 heart ablasion 03/2013
--- OUTSIDE RECORDS SUMMARY | 2025-08-21 16:30 | XMS_ITS | Clinical Summary ---
Author Organization [facility] ity Address [address] [place] [address] Care Team Providers Care Care Team Assistant Name Role Phone Unavailable Primary Care Provider [...]
--- OUTSIDE RECORDS SUMMARY | 2025-08-21 16:30 | XMS_ITS | Clinical Summary ---
Author Organization [facility] Address [address] [place] [id number] Care Team Providers Care Hat Designer Name Role Phone Monique Bell PA-C Primary Care Provider [phone] Allergies Active Allergy Reactions Criticality Noted Date [...] Description 07/24/2025 8:30 AM EST Office Visit [facility] [place] [address] [facility], [place] [address] Devon Laboy MD Nasal trauma, initial encounter (Primary Dx); Closed fracture of nasal bone, initial encounter 07/13/2025 6:19 PM EST - 07/13/2025 9:57 PM EST Emergency [facility] Emergency Department [address] [place] [id number] Erwin Vazquez MD Closed fracture of [...] 4.0 - 11.0 Thou/uL 07/13/2025 7:05 PM [facility] Platelet Count 150 150 - 450 Thou/uL 07/13/2025 7:05 PM [facility] Hemoglobin 11.3(L) 11.7 - 15.7 g/dL 07/13/2025 7:05 PM [facility] Hematocrit 33.1(L) 35.0 - 47.0 % 07/13/2025 7:05 PM [facility] Red Blood Cell Count 3.39(L) 4.00 - 5.40 Mil/uL 07/13/2025 7:05 PM [facility] MCV 98 80 - 100 fL 07/13/2025 7:05 PM [facility] MCH 33.3(H) 27.0 - 31.0 pg 07/13/2025 7:05 PM [facility] MCHC 34.1 30.0 - 36.0 g/dL 07/13/2025 7:05 PM [facility] RDW 13.7 11.5 - 14.5 % 07/13/2025 7:05 PM [facility] MPV 9.7 7.5 - 12.5 fL 07/13/2025 7:05 PM [facility] Neutrophils Auto 62.3 % 07/13/20 7:05 PM [facility] Immature Granulocytes 0.6 % 07/13/2025 7:05 PM [facility] Lymphocytes Auto 22.1 % 07/13/20 7:05 PM [facility] Monocytes Auto 12.9 % 07/13/2025 7:05 PM [facility] Eosinophils Auto 1.5 % 07/13/20 7:05 PM [facility] Basophils Auto 0.6 % 07/13/2025 7:05 PM [facility] Abs Neutrophils Auto 3.25 2.00 - 7.50 Thou/uL 07/13/2025 7:05 PM [facility] Abs Immature Granulocytes 0.03 0.00 - 0.10 Thou/uL 07/13/2025 7:05 PM [facility] Abs Lymphocytes Auto 1.15(L) 1.50 - 4.50 Thou/uL 07/13/2025 7:05 PM [facility] Abs Monocytes Auto 0.67 0.20 - 1.50 Thou/uL 07/13/2025 7:05 PM [facility] Abs Eosinophils Auto 0.08 0.00 - 0.70 Thou/uL 07/13/2025 7:05 PM [facility] Abs Basophils Auto 0.03 0.00 - 0.20 Thou/uL 07/13/2025 7:05 PM [facility] Blood Blood specimen / Unknown 07/13/2025 6:50 PM EST 07/13/2025 7:01 PM EST Erwin Vazquez MD LAB BLOOD ORDERABLES Final Re sult Performing Organization Address City/[facility]/[place] [address], [place] [address] * (ABNORMAL) Ethanol, Blood (07/13/2025 6:50 PM EST) Pathologist [facility] Ethanol, Quantitative, Blood 228(H) <11 mg/dL 07/13/2025 7:37 PM [facility] Comment:* FOR MEDICAL PURPOS ES ONLY * Blood Blood specimen / Unknown 07/13/2025 6:50 PM EST 07/13/2025 7:01 PM EST Erwin Vazquez MD LAB BLOOD ORDERABLES Final Re sult Performing Organization Address City/[facility]/ZIP Co de Phone Number [facility] [address] [place] [address], [place] [address] * (ABNORMAL) Comprehensive Metabolic Panel (07/13/2025 6:50 PM EST) [facility] Glucose 96 65 - 99 mg/dL 07/13/2025 7:37 PM [facility] Comment:Fasting: <100 mg/dL, Non-Fasting: <200 mg/dL (ADA 2004) Blood Urea Nitrogen (BUN) 11 8 - 21 mg/dL 07/13/2025 7:37 PM [facility] Creatinine 0.55 0.40 - 1.10 mg/dL 07/13/2025 7:37 PM [facility] eGFR >90 >59 07/13/2025 7:37 PM [facility] Comment:CKD-EPI (2020) in mL /min/1.73 sq meters. Sodium 128(L) 136 - 145 mmol/L 07/13/2025 7:37 PM [facility] Potassium 4.0 3.4 - 5.3 mmol/L 07/13/2025 7:37 PM [facility] Chloride 95(L) 98 - 107 mmol/L 07/13/2025 7:37 PM [facility] CO2 17(L) 22 - 33 mmol/L 07/13/2025 7:37 PM [facility] Calcium 8.5(L) 8.7 - 10.5 mg/dL 07/13/2025 7:37 PM [facility] Alkaline Phosphatase 67 32 - 122 U/L 07/13/2025 7:37 PM [facility] Aspartate Aminotrans (AST) 94(H) 10 - 50 U/L 07/13/2025 7:37 PM [facility] Alanine Aminotrans (ALT) 73(H) 10 - 50 U/L 07/13/2025 7:37 PM [facility] Bilirubin, Total 0.4 0.2 - 1.0 mg/dL 07/13/2025 7:37 PM [facility] Protein, Total 6.5 6.3 - 8.3 g/dL 07/13/2025 7:37 PM [facility] Albumin 4.2 3.4 - 4.8 g/dL 07/13/2025 7:37 PM [facility] BUN/Creatinine Ratio 20 10.0 - 25.0 Ratio 07/13/2025 7:37 PM [facility] Globulin 2.3 1.5 - 3.9 g/dL 07/13/2025 7:37 PM [facility] Albumin/Globulin Ratio 1.8 Ratio 07/13/2025 7:37 PM [facility] Anion Gap 16 7 - 17 07/13/2025 7:37 PM EST [facility] Blood Blood specimen / Unknown 07/13/2025 6:50 PM EST 07/13/2025 7:01 PM EST us Erwin Vazquez MD LAB BLOOD ORDERABLES Final Re sult [facility] [address] [place] [address], [facility] [address] [place] [address] * CT Head w/o contrast (07/13/2025 6:37 [...] Last 3 Months Insurance MEDICARE PART A [facility] MEDICARE PART A [facility] Teams Hat Designer Relationship Specialty Start Date End Date Monique Bell PA-C [address] [place] [address] PCP - General 07/24/25
== END 2025-08-21 15:39 | disposition home or self-care (01) ==
LOC: HO.HSM 15:19
PROVIDERS: PCP Physician Assistant; Visit Provider Psychiatry & Neurology Neurology
DX: R25.1 Tremor, unspecified (principal); G20.C Parkinsonism, unspecified
CPT/HCPCS: 99204